=== PATIENT | male | born 1940 | race Caucasian/White ===

== ENCOUNTER 2018-01-28 13:47 | Inpatient (IN) | payer OTHER ==
[2018-01-28] MEDS ORDERED: SODIUM CHLORIDE 500 ML IV STA ×2 (14:19→16:02)
--- NOTE | 2018-01-28 14:27 | PDOC ---
History of Present Illness - General Chief Complaint: Blood Sugar Problem Stated Complaint: High sugar, monitor read HIGH Time Seen by Provider: 01/28/18 14:08 History Source: Patient - History of Present Illness Timing/Duration: other Associated Symptoms: denies: chest pain, cough, fever/chills, headaches, loss of appetite, nausea/vomiting, shortness of breath, weakness Past History - Past Medical History Allergies/Adverse Reactions: Allergies Allergy/AdvReac Type Severity Reaction Status Date / Time No Known Allergies Allergy Verified 01/28/18 13:56 Home Medications: Ambulatory Orders Insulin Glargine,Hum.rec.anlog [Lantus] 8 unit SQ DAILY 01/28/18 COPD: No Diabetes: Yes HTN: Yes - Suicide/Smoking/Psychosocial Hx Smoking History: Never smoked Information on smoking cessation initiated: No Hx Alcohol Use: No Drug/Substance Use Hx: No Substance Use Type: None Review of Systems - Review of Systems Constitutional: No: Chills, Fever, Malaise, Weakness Respiratory: No: Cough, Shortness of Breath Cardiac (ROS): No: Chest Pain, Lightheadedness, Palpitations, Syncope ABD/GI: No: Constipated, Diarrhea, Nausea, Vomiting, Abdominal cramping : No: Dysuria *Physical Exam - Vital Signs Last Vital Signs Temp Pulse Resp BP Pulse Ox 97.5 F L 63 18 162/76 97 01/28/18 13:50 01/28/18 13:50 01/28/18 13:50 01/28/18 13:50 01/28/18 13:50 - Physical Exam General Appearance: Yes: Appropriately Dressed. No: Apparent Distress HEENT: positive: Normal Voice Neck: positive: Supple Respiratory/Chest: positive: Lungs Clear, Normal Breath Sounds. negative: Respiratory Distress Cardiovascular: positive: Regular Rate, S1, S2 Gastrointestinal/Abdominal: positive: Soft. negative: Tender Musculoskeletal: negative: CVA Tenderness Extremity: positive: Normal Inspection Integumentary: positive: Dry, Warm Neurologic: positive: Alert, Normal Mood/Affect ED Treatment Course - LABORATORY CBC & Chemistry Diagram: 01/28/18 14:15 01/28/18 14:15 - RADIOLOGY Radiology Studies Ordered: Category Date Time Status CHEST X-RAY PORTABLE* [RAD] Stat Radiology 01/28/18 14:08 Ordered Medical Decision Making - Medical Decision Making 01/28/18 14:20 77-year-old male, h/o DM, poor vision and gait at baseline, resides alone, h/o med non-compliance, now brought in by friends for hyperglycemia. Friends report that patient was seen at [facility] 3 days ago for weakness in the setting of hyperglycemia. Was discharged and told to follow-up with his PMD, Dr. Raymon Aragon, who patient saw 2 days ago and who started patient on 8 units daily of lantus. Friends report that they have been visiting patient daily and ensuring that he takes his lantus but states today finger stick was over 500. Patient continues to have weakness, otherwise denies any acute sxs. See exam Hyperglycemia Started on insulin 2 days ago by PMD and taking meds per family friends +weakness Well marilee and stable w/ unremarkable exam -labs -IVF -insulin -anticipate admission for better control of DM, will also need to be evaluated by inhouse SW given lack of social support/inability to care for self 01/28/18 14:45 Patient's EKG today shows a LBBB. No old EKG on records here at [facility]. Pt has no CP or SOB at this time. I called [facility] and spoke to nurse, Jaja, who was able to review patient's chart and reported over the phone that patient's EKG 3 days ago in ER showed normal sinus rhythm with left bundle branch block and nonspecific ST-T wave changes. Nurse states currently unable to fax over EKG. States patient was seen there 3 days ago for hyperglycemia with blood glucose of >400 and was treated with 5 units of humalog and discharged. 01/28/18 16:03 Blood glucose over 500 without gap. IV fluid and insulin in progress. Will admit at this time 01/28/18 17:05 Case d/w hospitalist and patient admitted at this time *DC/Admit/Observation/Transfer Diagnosis at time of Disposition: Hyperglycemia - Discharge Dispostion Condition at time of disposition: Fair Admit: Yes - Referrals Referrals: Raymon Aragon MD [Primary Care Provider] - - Patient Instructions - Post Discharge Activity
--- NOTE | 2018-01-28 14:47 | EKG ---
Test Reason : Blood Pressure : / mmHG Vent. Rate : 071 BPM Atrial Rate : 071 BPM P-R Int : 196 ms QRS Dur : 160 ms QT Int : 464 ms P-R-T Axes : 088 -25 110 degrees QTc Int : 504 ms POOR DATA QUALITY, INTERPRETATION MAY BE ADVERSELY AFFECTED SINUS RHYTHM WITH PREMATURE ATRIAL COMPLEXES LEFT BUNDLE BRANCH BLOCK ABNORMAL ECG NO PREVIOUS ECGS AVAILABLE Confirmed by NIGEL GODWIN, EMELY ([id number]) on 01/28/2018 2:47:25 PM Referred By: Confirmed By:EMELY MANNING MD
[2018-01-28 14:48] LABS: BASO % 0.6 % (0-2.0); EOS % 0.6 % (0-4.5); HEMATOCRIT 40.6 % (35.4-49); HEMOGLOBIN 13.5 GM/dL (11.7-16.9); LYMPH % 13.8 % (8-40); MCH 29.4 pg (25.7-33.7); MCHC 33.3 g/dl (32.0-35.9); MEAN CELL VOLUME 88.2 fl (80-96); MONO % 9.4 % (3.8-10.2); NEUT % 75.6 % (42.8-82.8); PLATELET COUNT 255 K/MM3 (134-434); RDW 14.2 % (11.9-15.9); WHITE BLOOD COUNT 6.8 K/mm3 (4.0-10.0)
[2018-01-28 15:48] LABS: ALBUMIN 3.9 g/dl (3.4-5.0); ALK PHOS 102 U/L (45-117); ANION GAP 6 (8-16); BILIRUBIN,TOTAL 0.5 mg/dL (0.2-1.0); BLOOD UREA NITROGEN 21 mg/dL (7-18); CALCIUM 9.3 mg/dL (8.5-10.1); CHLORIDE 96 mmol/L (98-107); CO2 31 mmol/L (21-32); CREATININE 1.1 mg/dL (0.7-1.3); SGPT/ALT 24 U/L (12-78); SODIUM 133 mmol/L (136-145); TOT PROT 7.8 g/dl (6.4-8.2)
[2018-01-28 15:55] LABS: POTASSIUM 4.9 mmol/L (3.5-5.1); SGOT/AST 12 U/L (15-37)
[2018-01-28 15:57] LABS: GLUCOSE,RANDOM 552 mg/dL (74-106)
[2018-01-28] MEDS ORDERED: INSULIN REGULAR HUMAN 100 UNITS/ML *VIAL IVPUSH ONE (16:02)
[2018-01-28] MEDS ORDERED: INSULIN REGULAR HUMAN 100 UNITS/ML *VIAL ONE (16:08)
--- NOTE | 2018-01-28 17:05 | PDOC ---
*Physical Exam - Vital Signs Last Vital Signs Temp Pulse Resp BP Pulse Ox 97.5 F L 63 18 162/76 97 01/28/18 13:50 01/28/18 13:50 01/28/18 13:50 01/28/18 13:50 01/28/18 13:50 ED Treatment Course - LABORATORY CBC & Chemistry Diagram: 01/28/18 14:15 01/28/18 14:15 - ADDITIONAL ORDERS Additional order review: Laboratory Results 01/28/18 01/28/18 14:39 14:15 Sodium 133 L Potassium 4.9 Chloride 96 L Carbon Dioxide 31 Anion Gap 6 L BUN 21 H Creatinine 1.1 Creat Clearance w eGFR > 60 Random Glucose 552 H* Calcium 9.3 Total Bilirubin 0.5 AST 12 L ALT 24 Alkaline Phosphatase 102 Total Protein 7.8 Albumin 3.9 Acetone, Qual Negative 01/28/18 14:15 RBC 4.60 MCV 88.2 MCHC 33.3 RDW 14.2 MPV 10.0 Neutrophils % 75.6 Lymphocytes % 13.8 Monocytes % 9.4 Eosinophils % 0.6 Basophils % 0.6 - RADIOLOGY Radiology Studies Ordered: Category Date Time Status CHEST X-RAY PORTABLE* [RAD] Stat Radiology 01/28/18 14:08 Completed - Medications Given in the ED: ED Medications Discontinued Medications Generic Name Dose Route Start Last Admin Trade Name Monse PRN Reason Stop Dose Admin Sodium Chloride 500 mls @ 500 mls/hr 01/28/18 14:19 01/28/18 14:45 Normal Saline - IV 01/28/18 15:18 500 mls/hr ASDIR STA Administration Sodium Chloride 500 mls @ 500 mls/hr 01/28/18 16:02 01/28/18 16:13 Normal Saline - IV 01/28/18 17:01 500 mls/hr ASDIR STA Administration Insulin Human Regular 10 units 01/28/18 16:02 01/28/18 16:11 Novolin R Vial *For Ivpush Or Iv Drip Only* IVPUSH 01/28/18 16:03 10 unit ONCE ONE Administration *DC/Admit/Observation/Transfer Diagnosis at time of Disposition: Hyperglycemia - Discharge Dispostion Condition at time of disposition: Fair Admit: Yes - Referrals Referrals: Raymon Aragon MD [Primary Care Provider] - - Patient Instructions - Post Discharge Activity
[2018-01-28] MEDS: SODIUM CHLORIDE 1,000 ML IV SCH (18:02)
[2018-01-28] MEDS ORDERED: LISINOPRIL 5 MG TABLET (FP) PO ONE (18:09)
--- NOTE | 2018-01-28 18:11 | PN ---
Teaching Attending Note Name of Resident: Steve Ngo ATTENDING PHYSICIAN STATEMENT I saw and evaluated the patient. I reviewed the resident's note and discussed the case with the resident. I agree with the resident's findings and plan as documented. SUBJECTIVE:77yo M with PMH HTN, demenita and newly diagnosed DM which he was recently diagnosed 3 days ago. c/o weakness, fatigue and polydipsia. in the ER found ot have sugar 500+. he was at [facility] 3 days ago with similar symptoms and told he was diabetic. his PMD started him on levemir 8 units the next day. unclear if he checks his sugars throughout the day. denies CP, SOB, fever, chills, N/V/C/D OBJECTIVE: Last Vital Signs Temp Pulse Resp BP Pulse Ox 97.5 F L 65 18 158/70 99 01/28/18 13:50 01/28/18 18:00 01/28/18 18:00 01/28/18 18:00 01/28/18 18:00 General NAD CV S1 S2 RRR +5/6 holosystolic murmur Lungs CTA B/L no wheezing/rales/rhonchi Abdomen soft NT/ND Extremities decreased sensation B/L to mid keith ASSESSMENT AND PLAN: 77yo M with PMH HTN, demenita and newly diagnosed DM c/o weakness, fatigue and polydipsia and found to have sugar 500+ 1. Hyperglycemia- Medicine observation. AG and bicarb WNL. no acetone. received novolog 10 units. will start levemir 15units tonight. trend sugars ACHS with iss. adjust as needed to optimize control 2. New murmur- does not recall being told he had a murmur. will check echo 3. pseudohyponatremia 4. HTN- not on home medications. start lisinopril 5mg 5. DVT ppx- EAM 6. PT eval. spoke with friend present at bedside. all questions answered. verbalized understanding and agreement. possible d/c tomorrow pending sugars and echo findings.
--- NOTE | 2018-01-28 18:37 | HP ---
CHIEF COMPLAINT: fatigue, BG 500> on finger stick PCP: Dr. Raymon Aragon HISTORY OF PRESENT ILLNESS: 77 yo man w/ pmh of DM, mild MCI, ?HTN who presents w/ persistent fatigue since prior discharge at [facility] for similar symptoms 3 days ago, found to have BG of 552 in ED. Pt endorses fatigue and polydipsia since discharge at [facility], where he was seen for lethargy and fatigue for multiple days prior and found to have elevated BG >400. Pt received 5 units humalog during that visit and was discharged with outpt f/u with PMD, who started pt on levemir 8units at an office visit the next day. Pt newly starting finger stick BG monitoring over past two days, however requires the assistance of friends living in his apartment complex to ensure compliance and routine levemir dosing. Pt BG >500 this AM at home and was brought in by friends to ED. Pt denies prior DM diagnosis and has never taken insulin or oral hypoglycemics before. Pt denies KEENE , lightheadness, vision changes, chest pain, SOB, cough, ab pain, back pain, diarrhea, neuro deficits, dysuria, diarrhea, f/c/n/d. Pt lives at home with mild MCI and will likely need involvement for placement. No recent travel or sick contacts. ER course was notable for: (1)BG 552 (2)Received Novolog 10u (3) Recent Travel: None PAST MEDICAL HISTORY: ?HTN DM ?dementia Poor vision Gait disturbance PAST SURGICAL HISTORY: None Social History: Smoking: none Alcohol: None Drugs: None Family History: [place] Allergies No Known Allergies Allergy (Verified 01/28/18 13:56) HOME MEDICATIONS: Home Medications Medication Instructions Recorded Insulin Glargine,Hum.rec.anlog 8 unit SQ DAILY 01/28/18 [Lantus] REVIEW OF SYSTEMS CONSTITUTIONAL: generalized weakness Absent: fever, chills, diaphoresis, , malaise, loss of appetite, weight change HEENT: Absent: rhinorrhea, nasal congestion, throat pain, throat swelling, difficulty swallowing, mouth swelling, ear pain, eye pain, visual changes CARDIOVASCULAR: Absent: chest pain, syncope, palpitations, irregular heart rate, lightheadedness , peripheral edema RESPIRATORY: Absent: cough, shortness of breath, dyspnea with exertion, orthopnea, wheezing, stridor, hemoptysis GASTROINTESTINAL: Absent: abdominal pain, abdominal distension, nausea, vomiting, diarrhea, constipation, melena, hematochezia GENITOURINARY: Absent: dysuria, frequency, urgency, hesitancy, hematuria, flank pain, genital pain MUSCULOSKELETAL: Absent: myalgia, arthralgia, joint swelling, back pain, neck pain SKIN: Absent: rash, itching, pallor HEMATOLOGIC/IMMUNOLOGIC: Absent: easy bleeding, easy bruising, lymphadenopathy, frequent infections ENDOCRINE: Increased thirst Absent: unexplained weight gain, unexplained weight loss, heat intolerance, cold intolerance NEUROLOGIC: Absent: headache, focal weakness or paresthesias, dizziness, unsteady gait, seizure, mental status changes, bladder or bowel incontinence PSYCHIATRIC: Absent: anxiety, depression, suicidal or homicidal ideation, hallucinations. PHYSICAL EXAMINATION Vital Signs - 24 hr 01/28/18 01/28/18 13:50 18:00 Temperature 97.5 F L Pulse Rate 63 Pulse Rate [ 65 Apical] Respiratory 18 18 Rate Blood Pressure 162/76 Blood Pressure 158/70 [Left Arm] O2 Sat by Pulse 97 99 Oximetry (%) GENERAL: Elderly man, A&Ox2, NAD HEAD: Normal with no signs of trauma. EYES: Pupils equal, round and reactive to light, extraocular movements intact, sclera anicteric, conjunctiva clear. No lid lag. EARS, NOSE, THROAT: Ears normal, nares patent, oropharynx clear without exudates. Dry mucous membranes NECK: Normal range of motion, supple without lymphadenopathy, JVD, or masses. LUNGS: Breath sounds equal, clear to auscultation bilaterally. No wheezes, and no crackles. No accessory muscle use. HEART: 4/6 systolic ejection murmur best heart at LUSB, however appreciable diffusely. Regular rate and rhythm, normal S1 and S2 ABDOMEN: Soft, nontender, not distended, normoactive bowel sounds, no guarding, no rebound, no masses. No hepatomegaly or splenomegaly. MUSCULOSKELETAL: Normal range of motion at all joints. No bony deformities or tenderness. No CVA tenderness. UPPER EXTREMITIES: 2+ pulses, warm, well-perfused. No cyanosis. No clubbing. No peripheral edema. LOWER EXTREMITIES: 2+ pulses, warm, well-perfused. No calf tenderness. No peripheral edema. NEUROLOGICAL: Cranial nerves II-XII intact. Normal speech. Gait not observed. PSYCHIATRIC: Pleasant. Good eye contact. Appropriate mood and affect. SKIN: Warm, dry, normal turgor, no rashes or lesions noted, normal capillary refill. Laboratory Results - last 24 hr CBC, BMP 01/28/18 14:15 01/28/18 14:15 01/28/18 01/28/18 01/28/18 14:15 14:15 14:15 WBC 6.8 RBC 4.60 Hgb 13.5 Hct 40.6 MCV 88.2 MCH 29.4 MCHC 33.3 RDW 14.2 Plt Count 255 MPV 10.0 Neutrophils % 75.6 Lymphocytes % 13.8 Monocytes % 9.4 Eosinophils % 0.6 Basophils % 0.6 Sodium 133 L Potassium 4.9 Chloride 96 L Carbon Dioxide 31 Anion Gap 6 L BUN 21 H Creatinine 1.1 Creat Clearance w eGFR > 60 Random Glucose 552 H* Calcium 9.3 Total Bilirubin 0.5 AST 12 L ALT 24 Alkaline Phosphatase 102 Creatine Kinase Cancelled Troponin I Cancelled Total Protein 7.8 Albumin 3.9 Acetone, Qual 01/28/18 14:39 WBC RBC Hgb Hct MCV MCH MCHC RDW Plt Count MPV Neutrophils % Lymphocytes % Monocytes % Eosinophils % Basophils % Sodium Potassium Chloride Carbon Dioxide Anion Gap BUN Creatinine Creat Clearance w eGFR Random Glucose Calcium Total Bilirubin AST ALT Alkaline Phosphatase Creatine Kinase Troponin I Total Protein Albumin Acetone, Qual Negative No micro CXR 01/28 - There are no prior studies for comparison. There is an apical lordotic projection with prominent heart, sclerotic knob and normal addie. The lungs are well expanded. There is suggestion of either old rib trauma or pleural calcifications involving the upper chest. There may be some pleural reaction and atelectasis at the right base. There are no prior studies for comparison. Correlation and follow-up recommended. ASSESSMENT/PLAN: 77 yo man w/ pmh of DM, mild MCI, ?HTN who presents w/ persistent fatigue since prior discharge at [facility] for similar symptoms 3 days ago, found to have BG of 552 in ED. 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 Plan discussed with attending, Dr. Estee Ngo, PGY1 Visit type - Emergency Visit Emergency Visit: Yes ED Registration Date: 01/28/18 Care time: The patient presented to the Emergency Department on the above date and was hospitalized for further evaluation of their emergent condition. - New Patient This patient is new to me today: Yes Date on this admission: 01/28/18 - Critical Care Critical Care patient: No Hospitalist Screening - Colonoscopy Questionnaire Colonoscopy Questionnaire: Colonoscopy Questionnaire - Patient: 50 - 75 years old and never had a screening colonoscopy: Unknown History of colon or rectal polyps, or CA: Unknown History of IBD, Crohn's disease or UC: Unknown History of abdominal radiation therapy as a child: Unknown - Relative: 1 with colon or rectal CA, or polyps at age 60 or younger: Unknown Colon or rectal CA diagnosed at age 45 or younger: Unknown Multiple relatives with colon or rectal CA: Unknown - Outcome: Screening Result: Negative Screen
[2018-01-28 18:38] VITALS: BMI 22.8
[2018-01-28] MEDS ORDERED: INSULIN (LEVEMIR) 100 UNITS/ML UNITS SQ SCH (22:00)
[2018-01-28] MEDS: INSULIN SLIDING SCALE (NOVOLOG) 1 VIAL SQ SCH (22:00)
[2018-01-28] MEDS: HEPARIN NA (PORCINE) 5,000 UNITS/ML 1ML VIAL SQ SCH (22:54)
[2018-01-29] MEDS: HEPARIN NA (PORCINE) 5,000 UNITS/ML 1ML VIAL SQ SCH ×3 (05:43→22:20)
--- NOTE | 2018-01-29 06:26 | PN ---
Physical Exam: SUBJECTIVE: Patient seen and examined by me this AM - No overnight events. AM glucose 86 on BMP. No complaints, pt states fatigue improving, tolerating feeds. Denies f/c/n/v/d, cp pain, sob, cough, ab pain, back pain, LE edema; Counseled on possible discharge today if echo normal and blood sugars well controlled. Will likely require changes in home insulin regimen. OBJECTIVE: Vital Signs Intake & Output 01/26/18 01/27/18 01/28/18 01/29/18 23:59 23:59 23:59 23:59 Output Total 400 Balance -400 Weight 62.142 kg Period Temp Pulse Resp BP Sys/[place] Pulse Ox Last 24 Hr 97.5 F-98.9 F 58-72 18-20 133-162/48-82 95-99 GENERAL: Elderly man, A&Ox2, NAD HEAD: Normal with no signs of trauma. EYES: Pupils equal, round and reactive to light, extraocular movements intact, sclera anicteric, conjunctiva clear. No lid lag. EARS, NOSE, THROAT: Ears normal, nares patent, oropharynx clear without exudates. Dry mucous membranes NECK: Normal range of motion, supple without lymphadenopathy, JVD, or masses. LUNGS: Breath sounds equal, clear to auscultation bilaterally. No wheezes, and no crackles. No accessory muscle use. HEART: 5/6 systolic ejection murmur best heart at LUSB, however appreciable diffusely. Regular rate and rhythm, normal S1 and S2 ABDOMEN: Scaphoid abdomen. Soft, nontender, not distended, normoactive bowel sounds, no guarding, no rebound, no masses. No hepatomegaly or splenomegaly. MUSCULOSKELETAL: Normal range of motion at all joints. No bony deformities or tenderness. No CVA tenderness. UPPER EXTREMITIES: 2+ pulses, warm, well-perfused. No cyanosis. No clubbing. No peripheral edema. LOWER EXTREMITIES: 2+ pulses, warm, well-perfused. No calf tenderness. No peripheral edema. NEUROLOGICAL: Cranial nerves II-XII intact. Normal speech. Gait not observed. PSYCHIATRIC: Pleasant. Good eye contact. Appropriate mood and affect. SKIN: Warm, dry, normal turgor, no rashes or lesions noted, normal capillary refill. Laboratory Results - last 24 hr CBC, BMP 01/29/18 06:30 01/29/18 06:30 01/28/18 14:15 01/28/18 14:15 01/28/18 01/28/18 01/28/18 14:15 14:15 14:15 WBC 6.8 RBC 4.60 Hgb 13.5 Hct 40.6 MCV 88.2 MCH 29.4 MCHC 33.3 RDW 14.2 Plt Count 255 MPV 10.0 Neutrophils % 75.6 Lymphocytes % 13.8 Monocytes % 9.4 Eosinophils % 0.6 Basophils % 0.6 Sodium 133 L Potassium 4.9 Chloride 96 L Carbon Dioxide 31 Anion Gap 6 L BUN 21 H Creatinine 1.1 Creat Clearance w eGFR > 60 POC Glucometer Random Glucose 552 H* Calcium 9.3 Total Bilirubin 0.5 AST 12 L ALT 24 Alkaline Phosphatase 102 Creatine Kinase 65 Cancelled Troponin I < 0.02 Cancelled Total Protein 7.8 Albumin 3.9 Acetone, Qual 01/28/18 01/28/18 01/28/18 14:39 17:56 22:47 WBC RBC Hgb Hct MCV MCH MCHC RDW Plt Count MPV Neutrophils % Lymphocytes % Monocytes % Eosinophils % Basophils % Sodium Potassium Chloride Carbon Dioxide Anion Gap BUN Creatinine Creat Clearance w eGFR POC Glucometer 198.46595 298 Random Glucose Calcium Total Bilirubin AST ALT Alkaline Phosphatase Creatine Kinase Troponin I Total Protein Albumin Acetone, Qual Negative 01/29/18 05:37 WBC RBC Hgb Hct MCV MCH MCHC RDW Plt Count MPV Neutrophils % Lymphocytes % Monocytes % Eosinophils % Basophils % Sodium Potassium Chloride Carbon Dioxide Anion Gap BUN Creatinine Creat Clearance w eGFR POC Glucometer 99 Random Glucose Calcium Total Bilirubin AST ALT Alkaline Phosphatase Creatine Kinase Troponin I Total Protein Albumin Acetone, Qual Active Medications Generic Name Dose Route Start Last Admin Trade Name Freq PRN Reason Stop Dose Admin Heparin Sodium (Porcine) 5,000 unit 01/28/18 22:00 01/29/18 05:43 Heparin - SQ 5,000 unit TID MELVIN Administration Sodium Chloride 1,000 mls @ 100 mls/hr 01/28/18 17:45 01/28/18 18:02 Normal Saline - IV 100 mls/hr ASDIR MELVIN Administration Insulin Aspart 1 vial 01/28/18 22:00 01/28/18 22:00 Novolog Vial Sliding Scale - SQ 2 units ACHS MELVIN Administration Protocol Insulin Detemir 15 units 01/28/18 22:00 01/28/18 22:54 Levemir Vial SQ 15 unit HS MELVIN Administration Lisinopril 5 mg 01/29/18 10:00 Prinivil PO DAILY MELVIN No micro CXR 01/28 - There are no prior studies for comparison. There is an apical lordotic projection with prominent heart, sclerotic knob and normal addie. The lungs are well expanded. There is suggestion of either old rib trauma or pleural calcifications involving the upper chest. There may be some pleural reaction and atelectasis at the right base. There are no prior studies for comparison. Correlation and follow-up recommended. ECHO 01/29 - pending ASSESSMENT/PLAN: 77 yo man w/ pmh of DM, mild MCI, ?HTN who presents w/ persistent fatigue since prior discharge at [facility] for similar symptoms 3 days ago, found to have BG of 552 in ED. Pt BG improved to 99 this AM on BMP. After PT eval, pt with marked gait instability/walked 35 ft. Plan for discharge to SNF pending placement. #Hyperglycemia/DM - BGM 552 on admission; Repeat BG 99 this AM; urine acetone negative on admission - ISS - Levemir decreased to 12u - IVFs - BGMs q4h - Consider Hgb A1c - Will require outpt management of diabetic meds - diabetic counseling given on rounds #Systolic murmur - 5/6 systolic ejection murmur, diffusely appreciable across precordium - f/u echo results #LBBB on EKG - prior EKG at [facility] with same findings; no complaints of chest pain or SOB - repeat EKG on discharge #Pseudohyponatremia - 140 today, resolved #?HTN - unknown home meds -Trend BP for now -c/w lisinopril 5mg #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 Plan discussed with attending, Dr. Estee Ngo, PGY1 Visit type - Emergency Visit Emergency Visit: Yes ED Registration Date: 01/29/18 Care time: The patient presented to the Emergency Department on the above date and was hospitalized for further evaluation of their emergent condition. - New Patient This patient is new to me today: No - Critical Care Critical Care patient: No
[2018-01-29 07:57] LABS: ALK PHOS 70 U/L (45-117); ANION GAP 5 (8-16); BILIRUBIN,TOTAL 0.6 mg/dL (0.2-1.0); BLOOD UREA NITROGEN 14 mg/dL (7-18); CALCIUM 8.1 mg/dL (8.5-10.1); CHLORIDE 105 mmol/L (98-107); CO2 30 mmol/L (21-32); CREATININE 0.4 mg/dL (0.7-1.3); GLUCOSE,RANDOM 86 mg/dL (74-106); POTASSIUM 3.8 mmol/L (3.5-5.1); SGOT/AST 8 U/L (15-37); SGPT/ALT 18 U/L (12-78); SODIUM 140 mmol/L (136-145); TOT PROT 5.8 g/dl (6.4-8.2)
[2018-01-29] MEDS: INSULIN SLIDING SCALE (NOVOLOG) 1 VIAL SQ SCH ×4 (08:34→22:23)
[2018-01-29 08:36] LABS: BASO % 0.7 % (0-2.0); EOS % 1.2 % (0-4.5); HEMATOCRIT 35.3 % (35.4-49); HEMOGLOBIN 11.8 GM/dL (11.7-16.9); LYMPH % 33.4 % (8-40); MCH 29.6 pg (25.7-33.7); MCHC 33.4 g/dl (32.0-35.9); MEAN CELL VOLUME 88.5 fl (80-96); MEAN PLT VOLUME 10.1 fl (7.5-11.1); NEUT % 53.7 % (42.8-82.8); PLATELET COUNT 206 K/MM3 (134-434); RBC 3.99 M/mm3 (4.00-5.60); WHITE BLOOD COUNT 6.3 K/mm3 (4.0-10.0)
[2018-01-29] MEDS: LISINOPRIL 5 MG TABLET (FP) PO SCH (11:11)
--- NOTE | 2018-01-29 15:50 | PN ---
Teaching Attending Note Name of Resident: Steve Ngo ATTENDING PHYSICIAN STATEMENT I saw and evaluated the patient. I reviewed the resident's note and discussed the case with the resident. I agree with the resident's findings and plan as documented. SUBJECTIVE:c/o dizzyness. denies CP, SOB, fever, chills, N/V/C/D OBJECTIVE: Last Vital Signs Temp Pulse Resp BP Pulse Ox 98.9 F 58 L 20 133/48 95 01/28/18 19:47 01/28/18 19:47 01/29/18 02:00 01/28/18 19:47 01/29/18 02:00 General NAD CV S1 S2 RRR +5/6 holosystolic murmur Lungs CTA B/L no wheezing/rales/rhonchi ASSESSMENT AND PLAN: 77yo M with PMH HTN, demenita and newly diagnosed DM c/o weakness, fatigue and polydipsia and found to have sugar 500+ 1. Hyperglycemia- improved. received 15units last night and sugar 99 this AM asymptomatic. will reduce to 12 units and monitor closely. will liekly improve as his eating improves. stressed importance of monitoring sugars and insulin. dietary evl. 2. New murmur- does not recall being told he had a murmur. echo pending 3. dizzyness- check orthostatics. 4. pseudohyponatremia 5. HTN-improved. cont lisinopril 5mg 6. DVT ppx- EAM 7. only ambulated 35ft with PT will need KATHERYN on discharge
[2018-01-29] MEDS: SODIUM CHLORIDE 1,000 ML IV SCH (18:03)
[2018-01-29] MEDS ORDERED: INSULIN (LEVEMIR) 100 UNITS/ML UNITS SQ SCH (22:00)
--- NOTE | 2018-01-30 05:54 | PN ---
Physical Exam: SUBJECTIVE: Patient seen and examined - Pt intermittently confused at night, ; attempts to leave bed w/ unsteady gait; nursing assisted safely to bathroom overnight; Noted with persistent bradycardia to 50s overnight; BG well controlled; pulled IV overnight - No complaints overnight; denies f/c/n/v/d, CP, sob, cough, ab pain, back pain , LE edema. Eating well, energy improved OBJECTIVE: Vital Signs Intake & Output 01/27/18 01/28/18 01/29/18 01/30/18 23:59 23:59 23:59 23:59 Intake Total 1825 Output Total 400 200 Balance -400 1625 Weight 62.142 kg Period Temp Pulse Resp BP Sys/Mujica Pulse Ox Last 24 Hr 97.8 F-98.3 F 53-93 18-20 120-175/52-77 GENERAL: Elderly man, NAD, A&Ox2 HEAD: Normal with no signs of trauma. EYES: Pupils equal, round and reactive to light, extraocular movements intact, sclera anicteric, conjunctiva clear. No lid lag. EARS, NOSE, THROAT: Ears normal, nares patent, oropharynx clear without exudates. Dry mucous membranes NECK: Normal range of motion, supple without lymphadenopathy, JVD, or masses. LUNGS: Breath sounds equal, clear to auscultation bilaterally. No wheezes, and no crackles. No accessory muscle use. HEART: 5/6 systolic ejection murmur across precordium. Regular rate and rhythm, normal S1 and S2. Pectus carinatum noted. ABDOMEN: Scaphoid abdomen. Soft, nontender, not distended, normoactive bowel sounds, no guarding, no rebound, no masses. No hepatomegaly or splenomegaly. MUSCULOSKELETAL: Normal range of motion at all joints. No bony deformities or tenderness. No CVA tenderness. UPPER EXTREMITIES: 2+ pulses, warm, well-perfused. No cyanosis. No clubbing. No peripheral edema. LOWER EXTREMITIES: 2+ pulses, warm, well-perfused. No calf tenderness. No peripheral edema. NEUROLOGICAL: Cranial nerves II-XII intact. Normal speech. Gait not observed. PSYCHIATRIC: Pleasant. Good eye contact. Appropriate mood and affect. SKIN: Warm, dry, normal turgor, no rashes or lesions noted, normal capillary refill. Laboratory Results - last 24 hr CBC, BMP CBC, BMP 01/30/18 06:15 01/30/18 06:15 01/29/18 06:30 01/29/18 06:30 01/29/18 01/29/18 01/29/18 05:37 06:30 06:30 WBC 6.3 RBC 3.99 L Hgb 11.8 D Hct 35.3 L MCV 88.5 MCH 29.6 MCHC 33.4 RDW 14.0 Plt Count 206 MPV 10.1 Neutrophils % 53.7 D Lymphocytes % 33.4 D Monocytes % 11.0 H Eosinophils % 1.2 D Basophils % 0.7 Sodium 140 Potassium 3.8 D Chloride 105 Carbon Dioxide 30 Anion Gap 5 L BUN 14 D Creatinine 0.4 L D Creat Clearance w eGFR > 60 POC Glucometer 99 Random Glucose 86 D Calcium 8.1 L Total Bilirubin 0.6 AST 8 L D ALT 18 D Alkaline Phosphatase 70 D Total Protein 5.8 L D Albumin 3.0 L D 01/29/18 01/29/18 01/29/18 11:51 17:58 21:47 WBC RBC Hgb Hct MCV MCH MCHC RDW Plt Count MPV Neutrophils % Lymphocytes % Monocytes % Eosinophils % Basophils % Sodium Potassium Chloride Carbon Dioxide Anion Gap BUN Creatinine Creat Clearance w eGFR POC Glucometer 183 240 178 Random Glucose Calcium Total Bilirubin AST ALT Alkaline Phosphatase Total Protein Albumin Active Medications Generic Name Dose Route Start Last Admin Trade Name Freq PRN Reason Stop Dose Admin Heparin Sodium (Porcine) 5,000 unit 01/28/18 22:00 01/29/18 22:20 Heparin - SQ 5,000 unit TID MELVIN Administration Sodium Chloride 1,000 mls @ 100 mls/hr 01/28/18 17:45 01/29/18 18:03 Normal Saline - IV Not Given ASDIR MELVIN Insulin Aspart 1 vial 01/28/18 22:00 01/29/18 22:23 Novolog Vial Sliding Scale - SQ 2 units ACHS MELVIN Administration Protocol Insulin Detemir 12 units 01/29/18 22:00 01/29/18 22:21 Levemir Vial SQ 12 units HS MELVIN Administration Lisinopril 5 mg 01/29/18 10:00 01/29/18 11:11 Prinivil PO 5 mg DAILY MELVIN Administration No micro CXR 01/28 - There are no prior studies for comparison. There is an apical lordotic projection with prominent heart, sclerotic knob and normal addie. The lungs are well expanded. There is suggestion of either old rib trauma or pleural calcifications involving the upper chest. There may be some pleural reaction and atelectasis at the right base. There are no prior studies for comparison. Correlation and follow-up recommended. ECHO 01/29 - pending ASSESSMENT/PLAN: 77 yo man w/ pmh of DM, mild MCI, ?HTN who presents w/ persistent fatigue since prior discharge at [facility] for similar symptoms 3 days ago, found to have BG of 552 in ED. Pt BG improved to 99 this AM on BMP. After PT eval, pt with marked gait instability/walked 35 ft. Plan for discharge to SNF pending placement. #Hyperglycemia/DM - BGM 552 on admission; Repeat BG 99 this AM; urine acetone negative on admission - ISS - Levemir decreased to 12u - IVFs - BGMs q4h - Consider Hgb A1c - Will require outpt management of diabetic meds - diabetic counseling given on rounds #Systolic murmur - 5/6 systolic ejection murmur, diffusely appreciable across precordium - f/u echo results #LBBB on EKG - prior EKG at [facility] with same findings; no complaints of chest pain or SOB - repeat EKG on discharge #Pseudohyponatremia - 140 today, resolved #?HTN - unknown home meds -Trend BP for now -c/w lisinopril 5mg #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 Plan discussed with attending, Dr. Estee Ngo, PGY1
[2018-01-30] MEDS: HEPARIN NA (PORCINE) 5,000 UNITS/ML 1ML VIAL SQ SCH ×2 (05:57→13:37)
[2018-01-30] MEDS: INSULIN SLIDING SCALE (NOVOLOG) 1 VIAL SQ SCH ×3 (05:59→18:13)
[2018-01-30 08:06] LABS: BASO % 0.5 % (0-2.0); EOS % 0.7 % (0-4.5); HEMOGLOBIN 13.4 GM/dL (11.7-16.9); LYMPH % 23.9 % (8-40); MCH 29.6 pg (25.7-33.7); MCHC 33.3 g/dl (32.0-35.9); MEAN CELL VOLUME 88.9 fl (80-96); MEAN PLT VOLUME 10.1 fl (7.5-11.1); MONO % 11.2 % (3.8-10.2); NEUT % 63.7 % (42.8-82.8); PLATELET COUNT 241 K/MM3 (134-434); RBC 4.51 M/mm3 (4.00-5.60); RDW 14.4 % (11.9-15.9); WHITE BLOOD COUNT 7.2 K/mm3 (4.0-10.0)
[2018-01-30 08:24] LABS: CHLORIDE 102 mmol/L (98-107); POTASSIUM 3.9 mmol/L (3.5-5.1); SODIUM 142 mmol/L (136-145)
[2018-01-30 08:30] LABS: ALBUMIN 3.6 g/dl (3.4-5.0); ALK PHOS 88 U/L (45-117); ANION GAP 10 (8-16); BILIRUBIN,TOTAL 0.7 mg/dL (0.2-1.0); BLOOD UREA NITROGEN 12 mg/dL (7-18); CALCIUM 9.6 mg/dL (8.5-10.1); CO2 30 mmol/L (21-32); CREATININE 0.5 mg/dL (0.7-1.3); GLUCOSE,RANDOM 83 mg/dL (74-106); SGOT/AST 23 U/L (15-37); SGPT/ALT 25 U/L (12-78); TOT PROT 7.1 g/dl (6.4-8.2)
[2018-01-30] MEDS: LISINOPRIL 5 MG TABLET (FP) PO SCH (11:37)
--- NOTE | 2018-01-30 13:49 | CON.CARD ---
Consult Consult Specialty:: cardiology Reason for Consultation:: aortiv stenosis. LBBB - History of Present Illness Chief Complaint: pt denies chest pain, dyspnea, dizziness History of Present Illness: 77-year-old male, h/o DM, poor vision and gait at baseline, resides alone, h/o med non-compliance, now brought in by friends for hyperglycemia. Friends report that patient was seen at [facility] 3 days ago for weakness in the setting of hyperglycemia. Was discharged and told to follow-up with his PMD, Dr. Raymon Aragon, who patient saw 2 days ago and who started patient on 8 units daily of lantus. Friends report that they have been visiting patient daily and ensuring that he takes his lantus but states today finger stick was over 500. Patient continues to have weakness, otherwise denies any acute sxs. 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 Cardio/Vascular: Yes: Aortic Stenosis, HTN Psych: Yes: Other Endocrine: Yes: Diabetes Mellitus - Alcohol/Substance Use Hx Alcohol Use: No - Smoking History Smoking history: Never smoked Home Medications - Allergies Allergies/Adverse Reactions: Allergies Allergy/AdvReac Type Severity Reaction Status Date / Time No Known Allergies Allergy Verified 01/28/18 13:56 - Home Medications Home Medications: Ambulatory Orders Insulin Glargine,Hum.rec.anlog [Lantus] 8 unit SQ DAILY 01/28/18 Family Disease History - Family Disease History Family History: Denies (however, pt is demented) - Risk Factors Known Risk Factors: Yes: Age, Diabetes Mellitus, Gender, Hypertension, Other ( Aortic stenosis; LBBB) Vital Signs: Vital Signs Temperature 97.7 F 01/30/18 07:38 Pulse Rate 52 L 01/30/18 07:38 Respiratory Rate 20 01/29/18 20:48 Blood Pressure 130/69 01/30/18 07:38 O2 Sat by Pulse Oximetry (%) 95 01/29/18 02:00 Constitutional: Yes: Calm Eyes: Yes: WNL HENT: Yes: WNL Neck: Yes: WNL Respiratory: Yes: WNL Gastrointestinal: Yes: Soft Renal/: No: Anuria - Other Data Labs, Other Data: CBC, BMP 01/30/18 06:15 01/30/18 06:15 Problem List - Problems (1) Hyperglycemia Code(s): R73.9 - HYPERGLYCEMIA, UNSPECIFIED (2) Aortic stenosis Assessment/Plan: modertely severe. Normal LVEF. Pt denies chest paink dyspnea, dizziiness, or syncope, and says he was "running in [employer] for about 20 minutes" a few times a week until 3 months ago (? veracity of hixtory, given pt's dementia). Code(s): I35.0 - NONRHEUMATIC AORTIC (VALVE) STENOSIS (3) LBBB (left bundle branch block) Assessment/Plan: Moderately severe aortic stenosis. LBBB may portend increased risk for coronary artery disease. May consider further workup as outpatient, including coronary artery evaluation , but only if first taking into consideration pt's mental status (dementia appears to be quite advanced). Code(s): I44.7 - LEFT BUNDLE-BRANCH BLOCK, UNSPECIFIED (4) Dementia Code(s): F03.90 - UNSPECIFIED DEMENTIA WITHOUT BEHAVIORAL DISTURBANCE (5) HTN (hypertension) Code(s): I10 - ESSENTIAL (PRIMARY) HYPERTENSION
--- NOTE | 2018-01-30 14:18 | PN ---
Teaching Attending Note Name of Resident: Steve Ngo ATTENDING PHYSICIAN STATEMENT I saw and evaluated the patient. I reviewed the resident's note and discussed the case with the resident. I agree with the resident's findings and plan as documented with exceptions below. SUBJECTIVE: Patient seen and examined, no dizziness today, yesterday with positional dizziness. OBJECTIVE: Vital Signs Period Temp Pulse Resp BP Sys/Mujica Pulse Ox Last 24 Hr 97.7 F-98.3 F 52-93 18-20 120-175/52-77 Intake & Output 01/27/18 01/28/18 01/29/18 01/30/18 23:59 23:59 23:59 23:59 Intake Total 1825 Output Total 400 200 Balance -400 1625 Weight 137 lb general: sitting in bed in no acute distress Home Medication List Medication Instructions Recorded Confirmed Type Insulin Glargine,Hum.rec.anlog 8 unit SQ DAILY 01/28/18 01/28/18 History [Lantus] Active Medications Generic Name Dose Route Start Last Admin Trade Name Kishoreq PRN Reason Stop Dose Admin Heparin Sodium (Porcine) 5,000 unit 01/28/18 22:00 01/30/18 13:37 Heparin - SQ 5,000 unit TID MELVIN Administration Insulin Aspart 1 vial 01/28/18 22:00 01/30/18 13:14 Novolog Vial Sliding Scale - SQ 2 units ACHS MELVIN Administration Protocol Insulin Detemir 12 units 01/31/18 07:00 Levemir Vial SQ AM MELVIN Insulin Detemir 12 units 01/30/18 15:30 Levemir Vial SQ 01/30/18 15:31 ONCE ONE Lisinopril 5 mg 01/29/18 10:00 01/30/18 11:37 Prinivil PO 5 mg DAILY MELVIN Administration 2D echo results reviewed ASSESSMENT AND PLAN: 77yo M with PMH HTN, demenita and newly diagnosed DM c/o weakness, fatigue and polydipsia and found to have sugar above 500. -Hyperglycemia, improved -Moderate to sever aortic stenosis -Dizziness, positive orthostatics, resolved, unclear if contributory -Psuedohyponatremia -HTN Plan: Sugars improved. levemir 12 units AM, will need continued titration 2D echo reviewed. Cardiology consult Dr. Silva, anticipate outpatient follow up. off IVF, caution with hydration given above. Currently asymptomatic. Avoid sudden postural changes. Continue lisinopril Dispo pending KATHERYN arrangements and cardiology input
[2018-01-30 14:40] LABS: CHOLESTEROL 232 mg/dL (50-200); TRIGLYCERIDES 192 mg/dL (35-160)
[2018-01-30 15:20] VITALS: BP 149/73; PULSE 55; TEMP 98.9
[2018-01-30] MEDS ORDERED: INSULIN (LEVEMIR) 100 UNITS/ML UNITS SQ ONE (15:30)
[2018-01-30 17:03] LABS: HDL CHOLESTEROL 63 mg/dL (40-60)
--- NOTE | 2018-01-30 23:02 | DS ---
Physical Exam: SUBJECTIVE: Patient seen and examined - Pt intermittently confused at night, ; attempts to leave bed w/ unsteady gait; nursing assisted safely to bathroom overnight; Noted with persistent bradycardia to 50s overnight; BG well controlled; pulled IV overnight - No complaints overnight; denies f/c/n/v/d, CP, sob, cough, ab pain, back pain , LE edema. Eating well, energy improved OBJECTIVE: Vital Signs Intake & Output 01/27/18 01/28/18 01/29/18 01/30/18 23:59 23:59 23:59 23:59 Intake Total 1825 Output Total 400 200 Balance -400 1625 Weight 62.142 kg Period Temp Pulse Resp BP Sys/Mujica Pulse Ox Last 24 Hr 97.7 F-98.9 F 52-56 18-20 130-158/56-73 PHYSICAL EXAM GENERAL: Elderly man, NAD, A&Ox2 HEAD: Normal with no signs of trauma. EYES: Pupils equal, round and reactive to light, extraocular movements intact, sclera anicteric, conjunctiva clear. No lid lag. EARS, NOSE, THROAT: Ears normal, nares patent, oropharynx clear without exudates. Dry mucous membranes NECK: Normal range of motion, supple without lymphadenopathy, JVD, or masses. LUNGS: Breath sounds equal, clear to auscultation bilaterally. No wheezes, and no crackles. No accessory muscle use. HEART: 5/6 systolic ejection murmur across precordium. Regular rate and rhythm, normal S1 and S2. Pectus carinatum noted. ABDOMEN: Scaphoid abdomen. Soft, nontender, not distended, normoactive bowel sounds, no guarding, no rebound, no masses. No hepatomegaly or splenomegaly. MUSCULOSKELETAL: Normal range of motion at all joints. No bony deformities or tenderness. No CVA tenderness. UPPER EXTREMITIES: 2+ pulses, warm, well-perfused. No cyanosis. No clubbing. No peripheral edema. LOWER EXTREMITIES: 2+ pulses, warm, well-perfused. No calf tenderness. No peripheral edema. NEUROLOGICAL: Cranial nerves II-XII intact. Normal speech. Gait not observed. PSYCHIATRIC: Pleasant. Good eye contact. Appropriate mood and affect. SKIN: Warm, dry, normal turgor, no rashes or lesions noted, normal capillary refill. LABS Laboratory Results - last 24 hr CBC, BMP 01/30/18 06:15 01/30/18 06:15 01/30/18 01/30/18 01/30/18 05:44 06:15 06:15 WBC 7.2 RBC 4.51 Hgb 13.4 D Hct 40.0 MCV 88.9 MCH 29.6 MCHC 33.3 RDW 14.4 Plt Count 241 MPV 10.1 Neutrophils % 63.7 Lymphocytes % 23.9 D Monocytes % 11.2 H Eosinophils % 0.7 Basophils % 0.5 Sodium 142 Potassium 3.9 Chloride 102 Carbon Dioxide 30 Anion Gap 10 BUN 12 Creatinine 0.5 L D Creat Clearance w eGFR > 60 POC Glucometer 72 Random Glucose 83 Calcium 9.6 Total Bilirubin 0.7 AST 23 D ALT 25 D Alkaline Phosphatase 88 D Total Protein 7.1 D Albumin 3.6 Triglycerides 192 H Cholesterol 232 H Total LDL Cholesterol 119 H HDL Cholesterol 63 H TSH 1.54 01/30/18 01/30/18 12:27 13:56 WBC RBC Hgb Hct MCV MCH MCHC RDW Plt Count MPV Neutrophils % Lymphocytes % Monocytes % Eosinophils % Basophils % Sodium Potassium Chloride Carbon Dioxide Anion Gap BUN Creatinine Creat Clearance w eGFR POC Glucometer 215 Random Glucose Calcium Total Bilirubin AST ALT Alkaline Phosphatase Total Protein Albumin Triglycerides Cancelled Cholesterol Cancelled Total LDL Cholesterol Cancelled HDL Cholesterol Cancelled TSH Cancelled No micro CXR 01/28 - There are no prior studies for comparison. There is an apical lordotic projection with prominent heart, sclerotic knob and normal addie. The lungs are well expanded. There is suggestion of either old rib trauma or pleural calcifications involving the upper chest. There may be some pleural reaction and atelectasis at the right base. There are no prior studies for comparison. Correlation and follow-up recommended. ECHO 01/29 - EF 60-65%, mild TR, mild AR, severe , normal RV/LV size and function HOSPITAL COURSE: prehospital course: 77 yo man w/ pmh of DM, mild MCI, ?HTN who presents w/ persistent fatigue since prior discharge at [facility] for similar symptoms 3 days ago, found to have BG of 552 in ED. Pt endorses fatigue and polydipsia since discharge at [facility], where he was seen for lethargy and fatigue for multiple days prior and found to have elevated BG >400. Pt received 5 units humalog during that visit and was discharged with outpt f/u with PMD, who started pt on levemir 8units at an office visit the next day. Pt newly starting finger stick BG monitoring over past two days, however requires the assistance of friends living in his apartment complex to ensure compliance and routine levemir dosing. Pt BG >500 this AM at home and was brought in by friends to ED. Pt denies prior DM diagnosis and has never taken insulin or oral hypoglycemics before. Pt denies KEENE , lightheadness, vision changes, chest pain, SOB, cough, ab pain, back pain, diarrhea, neuro deficits, dysuria, diarrhea, f/c/n/d. Pt lives at home with mild MCI and will likely need SW involvement for placement. No recent travel or sick contacts. ER course was notable for: (1)BG 552 (2)Received Novolog 10u (3) hospital course: 77 yo man w/ pmh of DM, mild MCI, ?HTN who presents w/ persistent fatigue since prior discharge at [facility] for similar symptoms 3 days ago, found to have BG of 552 in ED. Pt BG improved to 99 this AM on BMP. After PT eval, pt with marked gait instability/walked 35 ft. Plan for discharge to SNF pending placement. 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 #LBBB on EKG - prior EKG at [facility] with same findings; no complaints of chest pain or SOB #Pseudohyponatremia - 140 today, resolved; initially 133 on admission #?HTN - Started on Lisinopril 5mg during admission; continued on discharge #Mild MCI - likely secondary to dementia; occasionally sundowned overnight - will require outpt f/u with PMD; #Gait instability/dizziness - - Walked 35 ft with PT; high fall risk - Fall precautions; will d/c to SNF for short term rehab - will require walker on discharge Date of Admission:01/29/18 Date of Discharge: 01/30/18 Pt is stable and medically cleared for discharge to SNF with outpt f/u with PCP in one week. Minutes to complete discharge: 35 Discharge Summary Reason For Visit: HYPERGLYCEMIA Condition: Stable - Instructions Diet, Activity, Other Instructions: During your stay at [facility], you were treated for a severely elevated blood sugars. You were given insulin and fluids and your condition resolved. You are being discharge to a fci facility for short-term rehab. Medications: The following medications were started during your stay at [facility]. Please take them as directed below: Levemir 12units, one injection every morning before breakfast. Lisinopril 5mg, take one pill by mouth every morning Please check your blood sugars regularly at home before and after meals. Please keep a record of your sugar ranges at home so you discuss your diabetes management with your primary doctor. Your insulin will need to be modified according to the readings. Follow-ups: Please follow-up with your primary care physician in one week for further management of your medications. Please call their office to schedule an appointment. Please follow-up with our supervisor cured meats, Dr. Silva, in one week for further work-up and management of your cardiac care. His contact number has been provided in this packet. Please call his office to make an appointment. Diet/exercise: Please adhere to the diabetic diet in your discharge plan. Based on our physical therapy evaluation, we have determined that you will need a walker at home when ambulating due to unsteadiness in your gait. Please use your home walker when ambulating. Please return to the hospital if you experience any of the following symptoms: - Worsening, persistent fatigue - Persistent fruity odor in your breath - Significantly increased urination or thirst - Any shortness of breath or fainting episodes when walking - Any new or concerning symptoms Referrals: Ish Silva MD [Staff Physician] - 1 Week Raymon Aragon MD [Primary Care Provider] - 1 Week Disposition: [facility] - Home Medications Comprehensive Discharge Medication List: Ambulatory Orders Insulin (Levemir) [Levemir Vial] 12 units SQ AM ml 01/30/18 Insulin Sliding Scale [Novolog Vial Sliding Scale -] 1 vial SQ ACHS units 01/30 Lisinopril [Prinivil] 5 mg PO DAILY #30 tablet 01/30/18 This patient is new to me today: Yes Date on this admission: 01/30/18 Emergency Visit: No Critical Care patient: No - Discharge Referral Referred to [facility] No
[2018-01-31] MEDS ORDERED: INSULIN (LEVEMIR) 100 UNITS/ML UNITS SQ SCH (07:00)
== END 2018-01-30 19:32 | DRG 638 ==
LOC: JER 13:47 → INTOOBSV 17:05 → UNDOADMOB 17:05 → JERBED 17:05 → J8W 18:55 → OBSVTOIN 01-29 13:46
PROVIDERS: ADMIT Internal Medicine; ATTEND Hospitalist
DX: E11.65 Type 2 diabetes mellitus with hyperglycemia (principal); E87.1 Hypo-osmolality and hyponatremia; J98.11 Atelectasis; R01.1 Cardiac murmur, unspecified; I44.7 Left bundle-branch block, unspecified; R26.89 Other abnormalities of gait and mobility; I10 Essential (primary) hypertension; F03.90 Unspecified dementia, unspecified severity, without behavioral disturbance, psychotic disturbance, mood disturbance, and anxiety; R42 Dizziness and giddiness; I35.0 Nonrheumatic aortic (valve) stenosis
CPT/HCPCS: 36415; 71045-TC-FY; 80053; 80061; 82009; 82550; 82962; 83721; 84443; 84484; 85025; 93005; 93010; 93306-TC; 97116-GP; 97161-GP; 99284-25; G0378; J1644; J7030

== ENCOUNTER 2019-11-13 20:46 | Inpatient (IN) | payer OTHER ==
[2019-11-13 21:40] VITALS: BMI 25.7
--- NOTE | 2019-11-13 21:43 | PDOC ---
History of Present Illness - General Chief Complaint: Altered Mental Status Stated Complaint: ALTERED MENTAL STATUS Time Seen by Provider: 11/13/19 20:57 History Source: Patient, EMS, Prison Records Exam Limitations: Clinical Condition, Dementia - History of Present Illness Initial Comments: 78M PMH IDDM, HTN, Dementia [facility] for unresponsiveness / AMS. At approx 8pm, supriya RN found patient to be staring straight ahead and unresponsive. Episode lasted about 15 minutes; pt became more responsive but not back to baseline. Pt is a poor historian and provides limited insight into current symptomatology but denies cp/sob, abd pain, f/c. Past History - Past Medical History Allergies/Adverse Reactions: Allergies Allergy/AdvReac Type Severity Reaction Status Date / Time No Known Allergies Allergy Verified 01/28/18 13:56 Home Medications: Ambulatory Orders Insulin (Levemir) [Levemir Vial] 12 units SQ AM ml 01/30/18 Donepezil HCl [Aricept -] 10 mg PO HS 11/14/19 Lisinopril 5 mg PO DAILY 11/14/19 Memantine HCl [Namenda -] 5 mg PO BID 11/14/19 COPD: No Diabetes: Yes HTN: Yes - Psycho Social/Smoking Cessation Hx Smoking History: Never smoked Hx Alcohol Use: No Drug/Substance Use Hx: No Substance Use Type: None Review of Systems - Review of Systems Comments:: LIMITED 2/2 AMS CONSTITUTIONAL: Denies F / C RESP: Denies SOB CARD: Denies chest pain GI: Denies abdominal pain : Denies dysuria MSK: Denies pain *Physical Exam - Physical Exam GEN: NAD, AAOx2 (himself and place). HEENT: NC/AT, limited ability to test but CN II-XII grossly intact except poor tracking; PERRL. No facial asymmetry. Dry membranes, cracked lips. Normal voice. Supple neck w/ FROM; no midline TTP. CV: Telemetry showing pt HR changing from 40s to 100s. S1/S2, RRR, no m/r/g LUNG: CTAB, no wheezes, crackles, rales, rhonchi. GI: Soft, ndnt, +BS, no guarding, no rebound. EXTREMITIES: No obvious deformities of all extremities. SKIN: Warm, dry, no rashes or ulcers (including sacral decubs) seen. PSYCH: flat affect NEURO: Moving all extremities, 5/5 strength UE and LE b/l. BACK: No step offs or TTP. ED Treatment Course - LABORATORY CBC & Chemistry Diagram: 11/17/19 06:20 11/18/19 12:49 - RADIOLOGY Radiology Studies Ordered: Category Date Time Status HEAD CT WITHOUT CONTRAST [CT] Stat CT Scan 11/13/19 21:10 Ordered CHEST X-RAY PORTABLE* [RAD] Stat Radiology 11/13/19 21:09 Ordered Medical Decision Making - Medical Decision Making 11/13/19 21:16 78M PMH IDDM, HTN, Dementia BIBEMS [facility] for unresponsiveness / AMS. Monitor concerning for a tachybrady / sick sinus syndrome. SBPs 90s. Eval for infection, lytes abnormality, ACS, anemia - CBC, CMP, VBG, CARDIAC, COAGS - BCX - UA UC - EKG; cardiac monitoring - CXR - CT HEAD - Fluids 11/13/19 23:01 Trop 2.6 Lactate 4 d[facility]: hard to assess for ischemia 2/2 existing LBBB; presentation consistent with tachybrady recommends avoidance of HR slowing agents (BB, nonDHP CCBs), if no chest pain will have colleague see pt in AM. f/u CT after CT will load w/ ASA, plavix, and statin 11/13/19 23:23 endorsed to Hospitalist REAL ESTATE LEASING MANAGER ADMITTED TELE Discharge - Discharge Information Problems reviewed: Yes Clinical Impression/Diagnosis: VIJAY (acute kidney injury), Elevated troponin Sepsis Qualifiers: Sepsis type: sepsis due to unspecified organism Sepsis acute organ dysfunction status: unspecified Qualified Code(s): A41.9 - Sepsis, unspecified organism Condition: Guarded - Admission Yes - Follow up/Referral - Patient Discharge Instructions - Post Discharge Activity
[2019-11-13 21:58] LABS: BASO % 0.3 % (0-2.0); HEMOGLOBIN 14.6 GM/dL (11.7-16.9); LYMPH % 2.2 % (8-40); MCH 29.4 pg (25.7-33.7); MCHC 33.1 g/dl (32.0-35.9); MEAN CELL VOLUME 88.9 fl (80-96); MEAN PLT VOLUME 11.2 fl (7.5-11.1); MONO % 6.4 % (3.8-10.2); NEUT % 91.1 % (42.8-82.8); PLATELET COUNT 163 K/MM3 (134-434); RBC 4.95 M/mm3 (4.00-5.60); RDW 14.5 % (11.9-15.9); WHITE BLOOD COUNT 19.6 K/mm3 (4.0-10.0)
[2019-11-13 22:01] LABS: VENOUS PC02 44.4 mmHg (38-52); VENOUS PH 7.39 (7.31-7.41); VENOUS PO2 < 49 mmHg (28-48)
[2019-11-13] MEDS ORDERED: SODIUM CHLORIDE 0.9% 500 ML INFUS.BAG IV ONE (22:04)
--- NOTE | 2019-11-13 22:04 | PDOC ---
Documentation entered by Alfreda Kim SCRIBE, acting as scribe for Marianne Puckett DO. Marianne Puckett, : This documentation has been prepared by the Judy emmanuel Xhesika, SCRIBE, under my direction and personally reviewed by me in its entirety. I confirm that the documentation accurately reflects all work, treatment, procedures, and medical decision making performed by me. Attending Attestation - Resident Resident Name: RoshanTawanda - ED Attending Attestation I have performed the following: I have examined & evaluated the patient, The case was reviewed & discussed with the resident, I agree w/resident's findings & plan, Exceptions are as noted - HPI HPI: 11/13/19 21:16 The patient is a 78 year old male with a significant PMH of HTN, dementia who presents to the emergency department [facility] from [facility] for AMS. Per NH notes, at around 8-8:15pm the nurse found the patient to be unresponsive, eyes opened, staring straight ahead. NH notes states the episode lasted 15 minutes before the patient became more responsive. Per NH, they deny any shaking activity. Pt is a poor historian due to dementia. The patient denies chest pain, shortness of breath, headache and dizziness. Denies fever, chills, cough, nausea, vomiting, diarrhea and constipation. Allergies: NKDA - Physicial Exam PE: 11/13/19 21:49 GENERAL: aao x2, follows commands HEAD: No signs of trauma EYES: PERRLA, EOMI, sclera anicteric, conjunctiva clear ENT: Auricles normal inspection, hearing grossly normal, nares patent, oropharynx clear without exudates. +tachy mucous membranes. + cracked lips, tongue. NECK: Normal ROM, supple, no lymphadenopathy, JVD, or masses LUNGS: Breath sounds equal, clear to auscultation bilaterally. No wheezes, and no crackles HEART: +tachy-rose, no murmurs, rubs or gallops ABDOMEN: Soft, nontender. No guarding, no rebound. No masses EXTREMITIES: Normal range of motion, no edema. No clubbing or cyanosis. No cords, erythema, or tenderness NEUROLOGICAL: Cranial nerves II through XII grossly intact. 5/5 strength and sensation in upper and lower extremities. SKIN: Warm, Dry, normal turgor, no rashes or lesions noted. - Medical Decision Making 11/13/19 22:00 a/p: 78yo male from [facility] with altered ms at the facility -pt arrives aaox2 -pt denies all somatic complaints -pt with dry mm, borderline bp -during exam HR from 40-108 -when HR low pt is less responsive -when HR up he is more responsive -an episode of apnea -will send labs, cxr, ekg, trop -electrolytes -will need admission, tele monitoring 11/13/19 22:08 RML infiltrate on xray wbc 19 11/13/19 22:46 pt with VIJAY also ivf hydration running 11/13/19 22:49 elevated lactate to 4 ivf, abx ordered and running pt with trop of >2 will need admission for NSTEMI pt also tachy/rose on monitor call placed to cards 11/13/19 23:28 resident discussed the case with sha who accepts pt to service 11/14/19 00:[address] neg will treat NSTEMI - asa, plavix, lipitor, heparin RECEIVER Vanessa updated on results Discharge - Discharge Information Problems reviewed: Yes Clinical Impression/Diagnosis: Sepsis, Pneumonia, VIJAY (acute kidney injury), NSTEMI (non-ST elevated myocardial infarction) Condition: Fair - Admission Yes - Follow up/Referral - Patient Discharge Instructions - Post Discharge Activity Heart Score/ECG Review - ECG Intrepretation Comment:: 11/13/19 22:07 sinus at 91, L axis, LBBB, no acute s/t twave findings
[2019-11-13] MEDS ORDERED: VANCOMYCIN 1 GM in D5W (PRE-DOCKED) 1,000 MG/250 ML IVPB ONE (22:08)
[2019-11-13] MEDS ORDERED: PIPERACILLIN/TAZOB 4.5 GM 4.5 GM in DEXTROSE 5%-WATER 100 ML IVPB ONE (22:08)
[2019-11-13] MEDS ORDERED: VANCOMYCIN 1 GRAM (PRE-DOCKED) 1,000 MG/250 ML BAG IVPB ONE ×2 (22:24→22:25)
[2019-11-13] MEDS ORDERED: PIPERACILLIN/TAZOB 4.5 GM 4.5 GM/100 ML BAG IVPB ONE (22:24)
[2019-11-13 22:31] LABS: INR 1.31 (0.83-1.09); PLATELET ESTIMATE ADEQUATE; PROTHROMBIN TIME (PATIENT) 15.5 SEC (9.7-13.0)
[2019-11-13 22:33] LABS: ACTIVATED PTT 28.6 SECONDS (25.2-36.5)
[2019-11-13 22:45] LABS: BILIRUBIN,TOTAL 1.4 mg/dL (0.2-1); BLOOD UREA NITROGEN 32.9 mg/dL (7-18); CALCIUM 9.4 mg/dL (8.5-10.1); CREATININE 1.5 mg/dL (0.55-1.3); POTASSIUM 4.2 mmol/L (3.5-5.1); TOT PROT 8.2 g/dl (6.4-8.2)
[2019-11-13] MEDS ORDERED: SODIUM CHLORIDE 0.9% 1000 ML INFUS.BAG IV ONE (22:46)
--- NOTE | 2019-11-13 23:39 | HP ---
Admitting History and Physical - Primary Care Physician PCP: Tavo Mota - Admission Chief Complaint: Unresponsive, Lethargy History of Present Illness: This is a 78 y/o man from [facility] with a PMHx of HTN, Dementia. Who presents to the emergency department [facility] for AMS. Per [facility] notes, at around 8-8:15pm the nurse found the patient to be unresponsive, eyes opened, staring straight ahead. [facility] notes states the episode lasted 15 minutes before the patient became more responsive. Per [facility], they deny any shaking activity. Pt is a poor historian due to dementia. The patient denies chest pain, shortness of breath, headache and dizziness. Denies fever, chills, cough, nausea, vomiting, diarrhea and constipation. 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 Cardiovascular: Yes: Aortic Stenosis, HTN Psych: Yes: Other Endocrine: Yes: Diabetes Mellitus - Smoking History Smoking history: Never smoked - Alcohol/Substance Use Hx Alcohol Use: No History of Substance Use: reports: None - Social History Usual Living Arrangement: Yes: Halfway ADL: Support Services History of Recent Travel: No Home Medications - Allergies Allergies/Adverse Reactions: Allergies Allergy/AdvReac Type Severity Reaction Status Date / Time No Known Allergies Allergy Verified 01/28/18 13:56 - Home Medications Home Medications: Ambulatory Orders Insulin (Levemir) [Levemir Vial] 12 units SQ AM ml 01/30/18 Donepezil HCl [Aricept -] 10 mg PO HS 11/14/19 Lisinopril 5 mg PO DAILY 11/14/19 Memantine HCl [Namenda -] 5 mg PO BID 11/14/19 Family Medical History Family History: Unable to Obtain Review of Systems Unable to obtain ROS, reason: Dementia Physical Examination Vital Signs: Vital Signs Temperature 98.8 F 11/13/19 20:46 Pulse Rate 79 11/13/19 20:46 Respiratory Rate 18 11/13/19 20:46 Blood Pressure 96/55 L 11/13/19 20:46 O2 Sat by Pulse Oximetry (%) 100 01/22/20 20:46 Constitutional: Yes: No Distress, Calm Eyes: Yes: Conjunctiva Clear, PERRL HENT: Yes: WNL, Atraumatic, Normocephalic Neck: Yes: WNL, Supple, Trachea Midline Cardiovascular: Yes: Regular Rate and Rhythm, Murmur, S1, S2 Respiratory: Yes: Diminished, On Nasal O2 Gastrointestinal: Yes: WNL, Normal Bowel Sounds, Soft ...Rectal Exam: Yes: Sphincter Tone Normal Renal/: Yes: Incontinence Breast(s): Yes: WNL Musculoskeletal: Yes: WNL Extremities: Yes: WNL Edema: No Peripheral Pulses WNL: Yes Integumentary: Yes: Bruising (eccyhmotic lesions to b/l LE) Neurological: Yes: Confusion, Cran Nerves II-XII Intact ...Motor Strength: WNL Psychiatric: Yes: Alert Labs: CBC, BMP 11/13/19 21:30 11/13/19 21:30 Laboratory Results - last 24 hr 11/13/19 11/13/19 11/13/19 21:30 21:30 21:30 WBC 19.6 H RBC 4.95 Hgb 14.6 Hct 44.0 MCV 88.9 MCH 29.4 MCHC 33.1 RDW 14.5 Plt Count 163 D MPV 11.2 H D Absolute Neuts (auto) 17.9 H Total Counted 100 Neutrophils % 91.1 H D Neutrophils % (Manual) 85.0 H Band Neutrophils % 8.0 Lymphocytes % 2.2 L D Lymphocytes % (Manual) 3.0 L Monocytes % 6.4 Monocytes % (Manual) 4 Eosinophils % 0.0 D Basophils % 0.3 Nucleated RBC % 0 Platelet Estimate Adequate Platelet Comment No clumping noted PT with INR INR PTT (Actin FS) VBG pH POC VBG pCO2 POC VBG pO2 VBG HCO3 VBG O2 Sat (Tiffany) VBG Base Excess Sodium 142 Potassium 4.2 Chloride 106 Carbon Dioxide 26 Anion Gap 10 BUN 32.9 H Creatinine 1.5 H Est GFR (CKD-EPI)AfAm 50.59 Est GFR (CKD-EPI)NonAf 43.65 Random Glucose 214 H Lactic Acid Calcium 9.4 Total Bilirubin 1.4 H AST 57 H ALT 53 Alkaline Phosphatase 154 H Creatine Kinase 325 H Creatine Kinase Index 1.1 CK-MB (CK-2) 3.8 H Troponin I 2.61 H* Total Protein 8.2 Albumin 3.0 L Urine Color Urine Appearance Urine pH Ur Specific [place] Urine Protein Urine Glucose (UA) Urine Ketones Urine Blood Urine Nitrite Urine Bilirubin Urine Urobilinogen Ur Leukocyte Esterase Urine WBC (Auto) Urine RBC (Auto) Urine Casts (Auto) U Epithel Cells (Auto) Urine Bacteria (Auto) 11/13/19 11/13/19 11/13/19 21:30 21:30 21:30 WBC RBC Hgb Hct MCV MCH MCHC RDW Plt Count MPV Absolute Neuts (auto) Total Counted Neutrophils % Neutrophils % (Manual) Band Neutrophils % Lymphocytes % Lymphocytes % (Manual) Monocytes % Monocytes % (Manual) Eosinophils % Basophils % Nucleated RBC % Platelet Estimate Platelet Comment PT with INR 15.50 H INR 1.31 H PTT (Actin FS) 28.6 VBG pH 7.39 POC VBG pCO2 44.4 POC VBG pO2 < 49 H VBG HCO3 26.3 VBG O2 Sat (Tiffany) 35.3 L VBG Base Excess 1.5 Sodium Potassium Chloride Carbon Dioxide Anion Gap BUN Creatinine Est GFR (CKD-EPI)AfAm Est GFR (CKD-EPI)NonAf Random Glucose Lactic Acid 4.0 H* Calcium Total Bilirubin AST ALT Alkaline Phosphatase Creatine Kinase Creatine Kinase Index CK-MB (CK-2) Troponin I Total Protein Albumin Urine Color Urine Appearance Urine pH Ur Specific [place] Urine Protein Urine Glucose (UA) Urine Ketones Urine Blood Urine Nitrite Urine Bilirubin Urine Urobilinogen Ur Leukocyte Esterase Urine WBC (Auto) Urine RBC (Auto) Urine Casts (Auto) U Epithel Cells (Auto) Urine Bacteria (Auto) 11/14/19 00:45 WBC RBC Hgb Hct MCV MCH MCHC RDW Plt Count MPV Absolute Neuts (auto) Total Counted Neutrophils % Neutrophils % (Manual) Band Neutrophils % Lymphocytes % Lymphocytes % (Manual) Monocytes % Monocytes % (Manual) Eosinophils % Basophils % Nucleated RBC % Platelet Estimate Platelet Comment PT with INR INR PTT (Actin FS) VBG pH POC VBG pCO2 POC VBG pO2 VBG HCO3 VBG O2 Sat (Tiffany) VBG Base Excess Sodium Potassium Chloride Carbon Dioxide Anion Gap BUN Creatinine Est GFR (CKD-EPI)AfAm Est GFR (CKD-EPI)NonAf Random Glucose Lactic Acid Calcium Total Bilirubin AST ALT Alkaline Phosphatase Creatine Kinase Creatine Kinase Index CK-MB (CK-2) Troponin I Total Protein Albumin Urine Color Yellow Urine Appearance Cloudy Urine pH 5.0 Ur Specific [place] 1.022 Urine Protein 2+ H Urine Glucose (UA) Negative Urine Ketones Negative Urine Blood 3+ H Urine Nitrite Positive H Urine Bilirubin Negative Urine Urobilinogen 0.2 Ur Leukocyte Esterase Negative Urine WBC (Auto) 7 Urine RBC (Auto) 1 Urine Casts (Auto) 10 U Epithel Cells (Auto) 3.3 Urine Bacteria (Auto) 196.7 Intake & Output 11/11/19 11/12/19 11/13/19 11/14/19 23:59 23:59 23:59 23:59 Weight 70.307 kg Current Medications Generic Name Dose Route Start Last Admin Trade Name Freq PRN Reason Stop Dose Admin Aspirin 81 mg 11/15/19 10:00 Asa - PO DAILY [facility] Heparin Sodium (Porcine) 1,000 unit 11/14/19 00:36 Heparin - IVPUSH PRN PRN Heparin Heparin Sodium (Porcine) 5,000 unit 11/14/19 00:36 Heparin - IVPUSH PRN PRN Heparin Vancomycin HCl 1,000 mg/ 250 mls @ 200 mls/hr 11/14/19 22:00 Dextrose IVPB Q24H [facility] Protocol Piperacillin Sod/Tazobactam 50 mls @ 100 mls/hr 11/14/19 09:00 Sod 2.25 gm/ Dextrose IVPB Q6H-IV [facility] Protocol Vancomycin HCl 1,000 mg in 250 mls @ 166.667 mls/hr 11/14/19 22:00 Vancomycin (Pre-Docked) IVPB 11/14/19 23:29 ONCE ONE Piperacillin Sod/Tazobactam 50 mls @ 100 mls/hr 11/14/19 09:00 Sod 2.25 gm/ Dextrose IVPB 11/15/19 03:29 Q6H-IV [facility] Protocol Heparin Sodium/Dextrose 25,000 units in 500 mls @ 20 mls/hr 11/14/19 00:45 Heparin Infusion - IVPB TITR [facility] Protocol 1,000 UNITS/HR Lisinopril 5 mg 11/14/19 10:00 Prinivil PO DAILY [facility] Memantine 5 mg 11/14/19 10:00 Namenda - PO BID [facility] Imaging - Results Chest X-ray: Image Reviewed Cat Scan: Pending EKG: Image Reviewed Problem List - Problems (1) Sepsis Code(s): A41.9 - SEPSIS, UNSPECIFIED ORGANISM (2) NSTEMI (non-ST elevated myocardial infarction) Code(s): I21.4 - NON-ST ELEVATION (NSTEMI) MYOCARDIAL INFARCTION (3) UTI (urinary tract infection) Code(s): N39.0 - URINARY TRACT INFECTION, SITE NOT SPECIFIED (4) VIJAY (acute kidney injury) Code(s): N17.9 - ACUTE KIDNEY FAILURE, UNSPECIFIED (5) Aortic stenosis Code(s): I35.0 - NONRHEUMATIC AORTIC (VALVE) STENOSIS (6) Dementia Code(s): F03.90 - UNSPECIFIED DEMENTIA WITHOUT BEHAVIORAL DISTURBANCE (7) HTN (hypertension) Code(s): I10 - ESSENTIAL (PRIMARY) HYPERTENSION (8) Hyperglycemia Code(s): R73.9 - HYPERGLYCEMIA, UNSPECIFIED (9) LBBB (left bundle branch block) Code(s): I44.7 - LEFT BUNDLE-BRANCH BLOCK, UNSPECIFIED Assessment/Plan This is a 78 y/o man with a PMHx of HTN, Dementia. Admitted to Telemetry for Sepsis, NSTEMI, VIJAY for further evaluation of their emergent condition. Plan: #Sepsis Likely due to Pneumonia vs UTI CURB65- 3 qSOFA-2 +leukocytosis with L-shift Lactic Acid 4.0 Fluid Bolus given in ED Repeat lactic acid-post boluses Blood Cultures-pending UA, Urine Culture, Urirne Legionella-pending Chest Xray image reviewed ?patchy density in right lobes Zosyn and Vancomycin given in ED, will continue renal dosing Appreciate ID Consult Monitor CBC, BMP Monitor vitals Maintain MAP >65 # NSTEMI Trop 2.61 Serial enzymes Continue cardiac monitoring Cardiology consulted by ED resident Dr Islas Treatment for NSTEMI- pending Head CT Head CT- neg ICH Stool Occult- neg Heparin Drip ordered EKG- NSR with left deviation, LBBB Serial EKGs Echo in am Lipid Panel in am TSH Continue Asa # Acute Metabolic Encephalopathy Likely due to Sepsis vs advancing disease process Head CT-pending Neurochecks Fall Precautions O2 Monitor vitals # UTI UA +nitrates, +3 blood bacteria 196 Urine Culture-pending Received Zosyn, Vanc for sepsis ID consult appreciated Monitor vitals Monitor CBC # VIJAY Likely secondary to demand ischemia Consider Nephrology consult if Cr worsens Monitor BMP Avoid Nephrotoxic drugs #Dementia Continue home meds Fall precautions FEN Replete lytes prn NPO DVT ppx OOB SCDs On Heparin Drip for NSTEMI Dispo: Requires Inpatient Care Visit type - Emergency Visit Emergency Visit: Yes ED Registration Date: 11/13/19 Care time: The patient presented to the Emergency Department on the above date and was hospitalized for further evaluation of their emergent condition. - New Patient This patient is new to me today: Yes Date on this admission: 11/13/19 - Critical Care Critical Care patient: No
[2019-11-14] MEDS ORDERED: ASPIRIN 81 MG CHEWABLE TABLETS PO ONE (00:33)
[2019-11-14] MEDS ORDERED: ATORVASTATIN CA 80 MG TABLET (FP) PO ONE (00:33)
[2019-11-14] MEDS ORDERED: CLOPIDOGREL BISULFATE 300 MG TABLET PO ONE (00:33)
[2019-11-14] MEDS ORDERED: HEPARIN NA (PORCINE) 5,000 UNITS/ML 1ML VIAL IVPUSH PRN (00:36)
[2019-11-14] MEDS ORDERED: HEPARIN INFUSION - 25,000 UNITS/500 ML INFUS.BAG IVPB SCH (00:45)
[2019-11-14 00:59] LABS: EPI CELLS 3.3 /HPF (0-5/HPF); HYALINE CASTS 10 /lpf (0-8); URINE APPEARANCE CLOUDY; URINE BACTERIA 196.7 /hpf (NEGATIVE); URINE BILIRUBIN NEGATIVE (NEGATIVE); URINE COLOR YELLOW; URINE GLUCOSE (UA) NEGATIVE (NEGATIVE); URINE KETONE NEGATIVE (NEGATIVE); URINE LEUK ESTERASE NEGATIVE (NEGATIVE); URINE NITRITE POSITIVE (NEGATIVE); URINE PROTEIN 2+ (NEGATIVE); URINE RBC 1 /hpf (0-4); URINE UROBILINOGEN 0.2 mg/dL (0.2-1.0); URINE WBC 7 /hpf (0-5)
[2019-11-14] MEDS ORDERED: HEPARIN NA (PORCINE) 5,000 UNITS/ML 1ML VIAL ONE ×2 (01:31→11:26)
[2019-11-14] MEDS ORDERED: ASPIRIN 81 MG CHEWABLE TABLETS ONE (01:31)
[2019-11-14] MEDS ORDERED: ATORVASTATIN CA 80 MG TABLET (FP) ONE (01:31)
[2019-11-14] MEDS ORDERED: HEPARIN INFUSION - 25,000 UNITS/500 ML INFUS.BAG IVPB ONE (01:32)
[2019-11-14] MEDS: HEPARIN NA (PORCINE) 5,000 UNITS/ML 1ML VIAL IVPUSH PRN ×2 (01:52→11:25)
[2019-11-14] MEDS ORDERED: CLOPIDOGREL BISULFATE 300 MG TABLET ONE (01:56)
[2019-11-14 06:58] LABS: BASO % 0.1 % (0-2.0); HEMATOCRIT 39.2 % (35.4-49); HEMOGLOBIN 12.9 GM/dL (11.7-16.9); LYMPH % 3.5 % (8-40); MCH 29.2 pg (25.7-33.7); MCHC 32.9 g/dl (32.0-35.9); MEAN CELL VOLUME 88.8 fl (80-96); MEAN PLT VOLUME 11.9 fl (7.5-11.1); MONO % 7.8 % (3.8-10.2); NEUT % 88.6 % (42.8-82.8); PLATELET COUNT 153 K/MM3 (134-434); RBC 4.41 M/mm3 (4.00-5.60); RDW 14.3 % (11.9-15.9); WHITE BLOOD COUNT 20.7 K/mm3 (4.0-10.0)
[2019-11-14 07:55] LABS: BLOOD UREA NITROGEN 40.4 mg/dL (7-18); CALCIUM 8.9 mg/dL (8.5-10.1); CREATININE 1.7 mg/dL (0.55-1.3); MAGNESIUM 2.5 mg/dL (1.8-2.4); PHOSPHOROUS 2.2 mg/dL (2.5-4.9); POTASSIUM 3.4 mmol/L (3.5-5.1)
[2019-11-14] MEDS ORDERED: LISINOPRIL 5 MG TABLET (FP) PO SCH (10:00)
[2019-11-14] MEDS ORDERED: PIPERACILLIN/TAZOB 3.375 GM 3.375 GM/50 ML BAG IVPB ONE ×2 (10:19→15:17)
[2019-11-14 10:34] LABS: ANISOCYTOSIS 0; MACROCYTOSIS 0; PLATELET ESTIMATE DECREASED
[2019-11-14] MEDS: PIPERACILLIN/TAZOB 2.25 GM 2.25 GM in DEXTROSE 5%-WATER - 50 ML IVPB SCH ×2 (10:46→15:28)
[2019-11-14] MEDS: MEMANTINE HCL 5 MG TABLET (UD) PO SCH ×2 (10:46→22:04)
--- NOTE | 2019-11-14 10:53 | PN ---
Progress Note, Physician Chief Complaint: NSTEMI Sepsis History of Present Illness: Previous notes and events reviewed awake, confused NAD sts having intermittent chest pain and dyspnea Trop trending down 2.61~1.85 Heparin drip infusing - Current Medication List Current Medications: Active Medications Aspirin (Asa -) 81 mg PO DAILY [facility] Heparin Sodium (Porcine) (Heparin -) 1,000 unit IVPUSH PRN PRN PRN Reason: Heparin Heparin Sodium (Porcine) (Heparin -) 5,000 unit IVPUSH PRN PRN PRN Reason: Heparin Last Admin: 11/14/19 01:52 Dose: 5,000 unit Vancomycin HCl 1,000 mg/ (Dextrose) 250 mls @ 200 mls/hr IVPB Q24H [facility]; Protocol Piperacillin Sod/Tazobactam (Sod 2.25 gm/ Dextrose) 50 mls @ 100 mls/hr IVPB Q6H-IV [facility]; Protocol Vancomycin HCl (Vancomycin (Pre-Docked)) 1,000 mg in 250 mls @ 166.667 mls/hr IVPB ONCE ONE Stop: 11/14/19 23:29 Piperacillin Sod/Tazobactam (Sod 2.25 gm/ Dextrose) 50 mls @ 100 mls/hr IVPB Q6H-IV [facility]; Protocol Stop: 11/15/19 03:29 Last Admin: 11/14/19 10:46 Dose: 100 mls/hr Heparin Sodium/Dextrose (Heparin Infusion -) 25,000 units in 500 mls @ 20 mls/ hr IVPB TITR [facility]; Protocol Last Admin: 11/14/19 01:52 Dose: 1,000 units/hr, 20 mls/hr Memantine (Namenda -) 5 mg PO BID [facility] Last Admin: 11/14/19 10:46 Dose: 5 mg - Objective Vital Signs: Vital Signs Temperature 98.8 F 11/13/19 20:46 Pulse Rate 91 H 11/14/19 06:54 Respiratory Rate 20 11/14/19 06:54 Blood Pressure 114/67 11/14/19 06:54 O2 Sat by Pulse Oximetry (%) 98 11/14/19 01:02 Constitutional: Yes: No Distress, Calm Eyes: Yes: Conjunctiva Clear HENT: Yes: Atraumatic Cardiovascular: Yes: Pulse Irregular Respiratory: Yes: Regular, Diminished Gastrointestinal: Yes: Normal Bowel Sounds, Soft Genitourinary: Yes: Incontinence Musculoskeletal: Yes: Muscle Weakness Extremities: Yes: WNL Edema: No Neurological: Yes: Alert, Confusion Psychiatric: Yes: Alert Labs: CBC, BMP 11/14/19 05:32 11/14/19 05:32 INR, PTT INR 1.31 (0.83-1.09) H 11/13/19 21:30 Microbiology 11/14/19 00:45 Urine For Antigen Detection Legionella Antigen - Final 11/14/19 00:45 Urine For Antigen Detection Streptococcus pneumoniae Antigen (M - Final Problem List - Problems (1) VIJAY (acute kidney injury) Assessment/Plan: -BUN/Cr 40.4/1.7 -monitor renal function daily -Renal consult Code(s): N17.9 - ACUTE KIDNEY FAILURE, UNSPECIFIED (2) NSTEMI (non-ST elevated myocardial infarction) Assessment/Plan: -Cardiology consult -Troponin 2.61~2.07~1.85 -Tele monitoring -EKG shows NSR with LBBB -Heparin drip infusing -received Plavix 300mg x 1, Atorvastatin 80mg x 1, Aspirin 324mg x 1 in ER -Atorvastatin -Echocardiogram -Aspirin Code(s): I21.4 - NON-ST ELEVATION (NSTEMI) MYOCARDIAL INFARCTION (3) Sepsis Assessment/Plan: -ID consult -LA 4.0~2.8 -Leukocytosis WBC 20.7 -afebrile -CXR shows no acute pathology -Urine Legionella negative -pending UC and BC results -received Vancomycin and Zosyn in ER -tylenol for temp >100F -ICU consult Code(s): A41.9 - SEPSIS, UNSPECIFIED ORGANISM (4) Dementia Assessment/Plan: -Neurology consult -Head CT scan shows moderate atrophy, no gross evidence of a focal intracranial lesion or hemorrhage -Namenda Code(s): F03.90 - UNSPECIFIED DEMENTIA WITHOUT BEHAVIORAL DISTURBANCE (5) HTN (hypertension) Assessment/Plan: -low Na diet Code(s): I10 - ESSENTIAL (PRIMARY) HYPERTENSION Assessment/Plan see problem list
--- NOTE | 2019-11-14 10:56 | CON.CARD ---
Consult Consult Specialty:: cardiology Reason for Consultation:: elevated TP - History of Present Illness History of Present Illness: 78 y/o man from [facility] with HTN, Dementia. [facility], at around 8-8:15pm the nurse found the patient to be unresponsive, eyes opened, staring straight ahead. [facility] notes states the episode lasted 15 minutes before the patient became more responsive. CXR is clear Elevated WBC, LA and troponin elevated up to 2.6 Positive blood culture. 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 Cardio/Vascular: Yes: Aortic Stenosis, HTN Psych: Yes: Other Endocrine: Yes: Diabetes Mellitus - Alcohol/Substance Use Hx Alcohol Use: No History of Substance Use: reports: None - Smoking History Smoking history: Never smoked - Social History ADL: Support Services History of Recent Travel: No Home Medications - Allergies Allergies/Adverse Reactions: Allergies Allergy/AdvReac Type Severity Reaction Status Date / Time No Known Allergies Allergy Verified 01/28/18 13:56 - Home Medications Home Medications: Ambulatory Orders Insulin (Levemir) [Levemir Vial] 12 units SQ AM ml 01/30/18 Donepezil HCl [Aricept -] 10 mg PO HS 11/14/19 Lisinopril 5 mg PO DAILY 11/14/19 Memantine HCl [Namenda -] 5 mg PO BID 11/14/19 Review of Systems Unable to obtain ROS, reason: dementia Vital Signs: Vital Signs Temperature 98.8 F 11/13/19 20:46 Pulse Rate 91 H 11/14/19 06:54 Respiratory Rate 20 11/14/19 06:54 Blood Pressure 114/67 11/14/19 06:54 O2 Sat by Pulse Oximetry (%) 98 11/14/19 01:02 Constitutional: Yes: No Distress, Cachectic, Thin Eyes: Yes: Conjunctiva Clear HENT: Yes: Atraumatic, Normocephalic Neck: Yes: Supple, Trachea Midline Respiratory: Yes: Regular, CTA Bilaterally Gastrointestinal: Yes: Normal Bowel Sounds Cardiovascular: Yes: Regular Rate and Rhythm Heart Sounds: Yes: S1, S2 Murmur: No: Systolic Murmur Peripheral Pulses WNL: No - Other Data Labs, Other Data: CBC, BMP 11/14/19 05:32 11/14/19 05:32 INR, PTT INR 1.31 (0.83-1.09) H 11/13/19 21:30 Troponin, BNP 11/13/19 11/14/19 11/14/19 21:30 05:32 09:50 Troponin I 2.61 H* 2.07 H* 1.85 H* Troponin, BNP 11/13/19 11/14/19 11/14/19 21:30 05:32 09:50 Troponin I 2.61 H* 2.07 H* 1.85 H* NSR LBBB Problem List - Problems (1) VIJAY (acute kidney injury) Code(s): N17.9 - ACUTE KIDNEY FAILURE, UNSPECIFIED (2) NSTEMI (non-ST elevated myocardial infarction) Code(s): I21.4 - NON-ST ELEVATION (NSTEMI) MYOCARDIAL INFARCTION Assessment/Plan This is a 78 y/o man from [facility] with a PMHx of HTN, Dementia. Who presents to the emergency department [facility] for AMS. Has modest TP elevation and positive blood cultures. Prior history is notable for LBBB and moderate to severe . Possibly sepsis and on broad spectrum Abx. His TP elevation is due to demand mediated ischemia and not from ACS. From a cardiac standpoint systemic heparin can be stopped. Continue medical therapy for underlying CAD. After paatient has stabilized reasonable to consider true yadira therapy and possibly ACEI if renal function is stable and is he has LV dysfunction. He is not a candidate for invasive cardiac therapies. Will see as needed.
--- NOTE | 2019-11-14 13:24 | CONSULT ---
Consultation: REQUESTING PROVIDER: Dr. Orr CONSULT REQUEST: We have been asked to medically evaluate this patient for ICU management. HISTORY OF PRESENT ILLNESS: 78 M with PMH of HTN, dementia, Aortic stenosis, DM, who presented to the emergency department for AMS from the prior night. He is from [facility] where he was noted to be unresponsive with his eyes opened and staring straight ahead. This episode was said to last for about 15 minutes before he became more responsive, he had no shaking activity. Patient was noted to have elevated troponins on presentation of 2.61 which has downtrended. Patient was noted to have LBBB on EKG, which was also present earlier. Today on exam patient was still altered and only responded "i'm good" to all questions. He denies all symptoms in a ROS. REVIEW OF SYSTEMS: CONSTITUTIONAL: Absent: fever, chills, diaphoresis, generalized weakness, malaise, loss of appetite, weight change HEENT: Absent: rhinorrhea, nasal congestion, throat pain, throat swelling, difficulty swallowing, mouth swelling, ear pain, eye pain, visual changes CARDIOVASCULAR: Absent: chest pain, syncope, palpitations, irregular heart rate, lightheadedness, peripheral edema RESPIRATORY: Absent: cough, shortness of breath, dyspnea with exertion, orthopnea, wheezing, stridor, hemoptysis GASTROINTESTINAL: Absent: abdominal pain, abdominal distension, nausea, vomiting, diarrhea, constipation, melena, hematochezia GENITOURINARY: Absent: dysuria, frequency, urgency, hesitancy, hematuria, flank pain, genital pain MUSCULOSKELETAL: Absent: myalgia, arthralgia, joint swelling, back pain, neck pain SKIN: Absent: rash, itching, pallor HEMATOLOGIC/IMMUNOLOGIC: Absent: easy bleeding, easy bruising, lymphadenopathy, frequent infections ENDOCRINE: Absent: unexplained weight gain, unexplained weight loss, heat intolerance, cold intolerance NEUROLOGIC: Absent: headache, focal weakness or paresthesias, dizziness, unsteady gait, seizure, mental status changes, bladder or bowel incontinence PSYCHIATRIC: Absent: anxiety, depression, suicidal or homicidal ideation, hallucinations. PHYSICAL EXAMINATION Vital Signs - 24 hr 11/13/19 11/14/19 11/14/19 20:46 01:02 03:00 Temperature 98.8 F Pulse Rate 79 Pulse Rate [ 103 H 93 H Radial] Respiratory 18 21 H 20 Rate Blood Pressure 96/55 L Blood Pressure 121/89 121/89 [Left Arm] O2 Sat by Pulse 100 98 Oximetry (%) 11/14/19 11/14/19 11/14/19 06:54 08:00 10:00 Temperature 98.9 F Pulse Rate Pulse Rate [ 91 H 99 H Radial] Respiratory 20 22 H Rate Blood Pressure Blood Pressure 114/67 120/67 [Left Arm] O2 Sat by Pulse 100 100 Oximetry (%) 11/14/19 12:47 Temperature Pulse Rate Pulse Rate [ 93 H Radial] Respiratory 22 H Rate Blood Pressure Blood Pressure 121/80 [Left Arm] O2 Sat by Pulse 99 Oximetry (%) GENERAL: Awake, alert, oriented to self. Not in acute distress. HEAD: Normal with no signs of trauma. EYES: Pupils equal, round and reactive to light. EARS, NOSE, THROAT: Ears normal, nares patent, oropharynx clear without exudates. Moist mucous membranes. NECK: Normal range of motion, supple without lymphadenopathy, JVD, or masses. LUNGS: Breath sounds equal, clear to auscultation bilaterally. No wheezes, and no crackles. HEART:Regular rate and rhythm, systolic murmur 3/6. No rubs or gallops appreciated. ABDOMEN: Soft, nontender, not distended, normoactive bowel sounds, no guarding, no rebound, no masses. MUSCULOSKELETAL: Normal range of motion at all joints. No bony deformities or tenderness. . LOWER EXTREMITIES: 2+ pulses, warm, well-perfused. No calf tenderness. No peripheral edema. NEUROLOGICAL: Does not follow command. Unable to assess. SKIN: Warm, dry, normal turgor, no rashes or lesions noted. Laboratory Results - last 24 hr 11/13/19 11/13/19 11/13/19 21:30 21:30 21:30 WBC 19.6 H RBC 4.95 Hgb 14.6 Hct 44.0 MCV 88.9 MCH 29.4 MCHC 33.1 RDW 14.5 Plt Count 163 D MPV 11.2 H D Absolute Neuts (auto) 17.9 H Total Counted 100 Neutrophils % 91.1 H D Neutrophils % (Manual) 85.0 H Band Neutrophils % 8.0 Lymphocytes % 2.2 L D Lymphocytes % (Manual) 3.0 L Monocytes % 6.4 Monocytes % (Manual) 4 Eosinophils % 0.0 D Eosinophils % (Manual) Basophils % 0.3 Basophils % (Manual) Myelocytes % (Man) Promyelocytes % (Man) Blast Cells % (Manual) Nucleated RBC % 0 Metamyelocytes Hypochromia Platelet Estimate Adequate Platelet Comment No clumping noted Polychromasia Poikilocytosis Anisocytosis Microcytosis Macrocytosis PT with INR INR PTT (Actin FS) VBG pH POC VBG pCO2 POC VBG pO2 VBG HCO3 VBG O2 Sat (Tiffany) VBG Base Excess Sodium 142 Potassium 4.2 Chloride 106 Carbon Dioxide 26 Anion Gap 10 BUN 32.9 H Creatinine 1.5 H Est GFR (CKD-EPI)AfAm 50.59 Est GFR (CKD-EPI)NonAf 43.65 POC Glucometer Random Glucose 214 H Hemoglobin A1c % Lactic Acid Calcium 9.4 Phosphorus Magnesium Total Bilirubin 1.4 H AST 57 H ALT 53 Alkaline Phosphatase 154 H Creatine Kinase 325 H Creatine Kinase Index 1.1 CK-MB (CK-2) 3.8 H Troponin I 2.61 H* Total Protein 8.2 Albumin 3.0 L Triglycerides Cholesterol Total LDL Cholesterol HDL Cholesterol TSH Urine Color Urine Appearance Urine pH Ur Specific Hamilton Urine Protein Urine Glucose (UA) Urine Ketones Urine Blood Urine Nitrite Urine Bilirubin Urine Urobilinogen Ur Leukocyte Esterase Urine WBC (Auto) Urine RBC (Auto) Urine Casts (Auto) U Epithel Cells (Auto) Urine Bacteria (Auto) Stool Occult Blood 11/13/19 11/13/19 11/13/19 21:30 21:30 21:30 WBC RBC Hgb Hct MCV MCH MCHC RDW Plt Count MPV Absolute Neuts (auto) Total Counted Neutrophils % Neutrophils % (Manual) Band Neutrophils % Lymphocytes % Lymphocytes % (Manual) Monocytes % Monocytes % (Manual) Eosinophils % Eosinophils % (Manual) Basophils % Basophils % (Manual) Myelocytes % (Man) Promyelocytes % (Man) Blast Cells % (Manual) Nucleated RBC % Metamyelocytes Hypochromia Platelet Estimate Platelet Comment Polychromasia Poikilocytosis Anisocytosis Microcytosis Macrocytosis PT with INR 15.50 H INR 1.31 H PTT (Actin FS) 28.6 VBG pH 7.39 POC VBG pCO2 44.4 POC VBG pO2 < 49 H VBG HCO3 26.3 VBG O2 Sat (Tiffany) 35.3 L VBG Base Excess 1.5 Sodium Potassium Chloride Carbon Dioxide Anion Gap BUN Creatinine Est GFR (CKD-EPI)AfAm Est GFR (CKD-EPI)NonAf POC Glucometer Random Glucose Hemoglobin A1c % Lactic Acid 4.0 H* Calcium Phosphorus Magnesium Total Bilirubin AST ALT Alkaline Phosphatase Creatine Kinase Creatine Kinase Index CK-MB (CK-2) Troponin I Total Protein Albumin Triglycerides Cholesterol Total LDL Cholesterol HDL Cholesterol TSH Urine Color Urine Appearance Urine pH Ur Specific Hamilton Urine Protein Urine Glucose (UA) Urine Ketones Urine Blood Urine Nitrite Urine Bilirubin Urine Urobilinogen Ur Leukocyte Esterase Urine WBC (Auto) Urine RBC (Auto) Urine Casts (Auto) U Epithel Cells (Auto) Urine Bacteria (Auto) Stool Occult Blood 11/14/19 11/14/19 11/14/19 00:45 00:45 03:00 WBC RBC Hgb Hct MCV MCH MCHC RDW Plt Count MPV Absolute Neuts (auto) Total Counted Neutrophils % Neutrophils % (Manual) Band Neutrophils % Lymphocytes % Lymphocytes % (Manual) Monocytes % Monocytes % (Manual) Eosinophils % Eosinophils % (Manual) Basophils % Basophils % (Manual) Myelocytes % (Man) Promyelocytes % (Man) Blast Cells % (Manual) Nucleated RBC % Metamyelocytes Hypochromia Platelet Estimate Platelet Comment Polychromasia Poikilocytosis Anisocytosis Microcytosis Macrocytosis PT with INR INR PTT (Actin FS) VBG pH POC VBG pCO2 POC VBG pO2 VBG HCO3 VBG O2 Sat (Tiffany) VBG Base Excess Sodium Potassium Chloride Carbon Dioxide Anion Gap BUN Creatinine Est GFR (CKD-EPI)AfAm Est GFR (CKD-EPI)NonAf POC Glucometer Random Glucose Hemoglobin A1c % Lactic Acid 2.8 H* Calcium Phosphorus Magnesium Total Bilirubin AST ALT Alkaline Phosphatase Creatine Kinase Creatine Kinase Index CK-MB (CK-2) Troponin I Total Protein Albumin Triglycerides Cholesterol Total LDL Cholesterol HDL Cholesterol TSH Urine Color Yellow Urine Appearance Cloudy Urine pH 5.0 Ur Specific Hamilton 1.022 Urine Protein 2+ H Urine Glucose (UA) Negative Urine Ketones Negative Urine Blood 3+ H Urine Nitrite Positive H Urine Bilirubin Negative Urine Urobilinogen 0.2 Ur Leukocyte Esterase Negative Urine WBC (Auto) 7 Urine RBC (Auto) 1 Urine Casts (Auto) 10 U Epithel Cells (Auto) 3.3 Urine Bacteria (Auto) 196.7 Stool Occult Blood Negative 11/14/19 11/14/19 11/14/19 04:54 05:32 05:32 WBC 20.7 H RBC 4.41 Hgb 12.9 Hct 39.2 MCV 88.8 MCH 29.2 MCHC 32.9 RDW 14.3 Plt Count 153 MPV 11.9 H Absolute Neuts (auto) 18.4 H Total Counted Neutrophils % 88.6 H Neutrophils % (Manual) 71.6 Band Neutrophils % 15.7 Lymphocytes % 3.5 L D Lymphocytes % (Manual) 3.9 L D Monocytes % 7.8 Monocytes % (Manual) 8 D Eosinophils % 0.0 Eosinophils % (Manual) 0.0 Basophils % 0.1 Basophils % (Manual) 0.0 Myelocytes % (Man) 0 Promyelocytes % (Man) 0 Blast Cells % (Manual) 0 Nucleated RBC % 0 Metamyelocytes 1 Hypochromia 0 Platelet Estimate Decreased Platelet Comment Polychromasia 0 Poikilocytosis 0 Anisocytosis 0 Microcytosis 0 Macrocytosis 0 PT with INR INR PTT (Actin FS) VBG pH POC VBG pCO2 POC VBG pO2 VBG HCO3 VBG O2 Sat (Tiffany) VBG Base Excess Sodium Potassium Chloride Carbon Dioxide Anion Gap BUN Creatinine Est GFR (CKD-EPI)AfAm Est GFR (CKD-EPI)NonAf POC Glucometer 223 Random Glucose Hemoglobin A1c % Lactic Acid Calcium Phosphorus Magnesium Total Bilirubin AST ALT Alkaline Phosphatase Creatine Kinase Creatine Kinase Index CK-MB (CK-2) Troponin I 2.07 H* Total Protein Albumin Triglycerides Cholesterol Total LDL Cholesterol HDL Cholesterol TSH Urine Color Urine Appearance Urine pH Ur Specific Hamilton Urine Protein Urine Glucose (UA) Urine Ketones Urine Blood Urine Nitrite Urine Bilirubin Urine Urobilinogen Ur Leukocyte Esterase Urine WBC (Auto) Urine RBC (Auto) Urine Casts (Auto) U Epithel Cells (Auto) Urine Bacteria (Auto) Stool Occult Blood 11/14/19 11/14/19 11/14/19 05:32 05:32 09:03 WBC RBC Hgb Hct MCV MCH MCHC RDW Plt Count MPV Absolute Neuts (auto) Total Counted Neutrophils % Neutrophils % (Manual) Band Neutrophils % Lymphocytes % Lymphocytes % (Manual) Monocytes % Monocytes % (Manual) Eosinophils % Eosinophils % (Manual) Basophils % Basophils % (Manual) Myelocytes % (Man) Promyelocytes % (Man) Blast Cells % (Manual) Nucleated RBC % Metamyelocytes Hypochromia Platelet Estimate Platelet Comment Polychromasia Poikilocytosis Anisocytosis Microcytosis Macrocytosis PT with INR INR PTT (Actin FS) 34.7 VBG pH POC VBG pCO2 POC VBG pO2 VBG HCO3 VBG O2 Sat (Tiffany) VBG Base Excess Sodium 142 Potassium 3.4 L Chloride 107 Carbon Dioxide 28 Anion Gap 7 L BUN 40.4 H Creatinine 1.7 H Est GFR (CKD-EPI)AfAm 43.49 Est GFR (CKD-EPI)NonAf 37.52 POC Glucometer Random Glucose 197 H Hemoglobin A1c % 6.9 H Lactic Acid Calcium 8.9 Phosphorus 2.2 L Magnesium 2.5 H Total Bilirubin AST ALT Alkaline Phosphatase Creatine Kinase Creatine Kinase Index CK-MB (CK-2) Troponin I Total Protein Albumin Triglycerides 157 H Cholesterol 153 Total LDL Cholesterol 85 HDL Cholesterol 24 L TSH 1.26 D Urine Color Urine Appearance Urine pH Ur Specific Hamilton Urine Protein Urine Glucose (UA) Urine Ketones Urine Blood Urine Nitrite Urine Bilirubin Urine Urobilinogen Ur Leukocyte Esterase Urine WBC (Auto) Urine RBC (Auto) Urine Casts (Auto) U Epithel Cells (Auto) Urine Bacteria (Auto) Stool Occult Blood 11/14/19 09:50 WBC RBC Hgb Hct MCV MCH MCHC RDW Plt Count MPV Absolute Neuts (auto) Total Counted Neutrophils % Neutrophils % (Manual) Band Neutrophils % Lymphocytes % Lymphocytes % (Manual) Monocytes % Monocytes % (Manual) Eosinophils % Eosinophils % (Manual) Basophils % Basophils % (Manual) Myelocytes % (Man) Promyelocytes % (Man) Blast Cells % (Manual) Nucleated RBC % Metamyelocytes Hypochromia Platelet Estimate Platelet Comment Polychromasia Poikilocytosis Anisocytosis Microcytosis Macrocytosis PT with INR INR PTT (Actin FS) VBG pH POC VBG pCO2 POC VBG pO2 VBG HCO3 VBG O2 Sat (Tiffany) VBG Base Excess Sodium Potassium Chloride Carbon Dioxide Anion Gap BUN Creatinine Est GFR (CKD-EPI)AfAm Est GFR (CKD-EPI)NonAf POC Glucometer Random Glucose Hemoglobin A1c % Lactic Acid Calcium Phosphorus Magnesium Total Bilirubin AST ALT Alkaline Phosphatase Creatine Kinase Creatine Kinase Index CK-MB (CK-2) Troponin I 1.85 H* Total Protein Albumin Triglycerides Cholesterol Total LDL Cholesterol HDL Cholesterol TSH Urine Color Urine Appearance Urine pH Ur Specific Hamilton Urine Protein Urine Glucose (UA) Urine Ketones Urine Blood Urine Nitrite Urine Bilirubin Urine Urobilinogen Ur Leukocyte Esterase Urine WBC (Auto) Urine RBC (Auto) Urine Casts (Auto) U Epithel Cells (Auto) Urine Bacteria (Auto) Stool Occult Blood Active Medications Generic Name Dose Route Start Last Admin Trade Name Freq PRN Reason Stop Dose Admin Aspirin 81 mg 11/15/19 10:00 Asa - PO DAILY MELVIN Atorvastatin Calcium 10 mg 11/14/19 22:00 Lipitor - PO HS MELVIN Heparin Sodium (Porcine) 1,000 unit 11/14/19 00:36 Heparin - IVPUSH PRN PRN Heparin Heparin Sodium (Porcine) 5,000 unit 11/14/19 00:36 11/14/19 11:25 Heparin - IVPUSH 5,000 unit PRN PRN Administration Heparin Vancomycin HCl 1,000 mg/ 250 mls @ 200 mls/hr 11/14/19 22:00 Dextrose IVPB Q24H MELVIN Protocol Piperacillin Sod/Tazobactam 50 mls @ 100 mls/hr 11/14/19 09:00 Sod 2.25 gm/ Dextrose IVPB Q6H-IV MELVIN Protocol Vancomycin HCl 1,000 mg in 250 mls @ 166.667 mls/hr 11/14/19 22:00 Vancomycin (Pre-Docked) IVPB 11/14/19 23:29 ONCE ONE Piperacillin Sod/Tazobactam 50 mls @ 100 mls/hr 11/14/19 09:00 11/14/19 10:46 Sod 2.25 gm/ Dextrose IVPB 11/15/19 03:29 100 mls/hr Q6H-IV MELVIN Administration Protocol Heparin Sodium/Dextrose 25,000 units in 500 mls @ 20 mls/hr 11/14/19 00:45 11/14/19 11:24 Heparin Infusion - IVPB 1,150 units/hr TITR MELVIN 23 mls/hr Titration Protocol 1,000 UNITS/HR Memantine 5 mg 11/14/19 10:00 11/14/19 10:46 Namenda - PO 5 mg BID MELVIN Administration ASSESSMENT/PLAN: 78 M with PMH of HTN, dementia, Aortic stenosis, DM who presents with AMS and UTI. Neuro -Hx of dementia -Unclear what baseline mental status is. Possibly toxic metabolic encephalopathy due to UTI. -Patient is awake and alert to self. -Neurochecks -Continue home meds of memantine and donepezil -recommend obtaining Neurology consult and EEG Cardio -Hx of LBBB, htn, aortic stenosis -Prior Echo in 2018 showed moderate to severe , normal LV function -Heparin drip started -Continue statin, plavix, and aspirin. -Cardiology consulted, would follow their recommendations. Pulmonary -maintaining airway well -Continue to monitor Renal -BUN/Creatinine is 40.4/1.7. -Elevated from baseline -Hydrate accordingly -Replete Potassium and Phos -Continue to monitor ID -Patient presented with UTI, U/A shows WBC of 7, Bacteria of 196. -F/U Cultures (urine and blood) -Continue abx (vanc and zoysn) DVT: On heparin drip F:IV fluids E:Monitor CMP N:NPO Dispo: Admitted to telemetry. Patient does not require ICU monitoring, please reconsult if patient becomes HD unstable, requires pressors, or airway management. Visit type - Emergency Visit Emergency Visit: Yes ED Registration Date: 11/13/19 Care time: The patient presented to the Emergency Department on the above date and was hospitalized for further evaluation of their emergent condition. - New Patient This patient is new to me today: Yes Date on this admission: 11/14/19 - Critical Care Critical Care patient: No ATTENDING PHYSICIAN STATEMENT I saw and evaluated the patient. I reviewed the resident's note and discussed the case with the resident. I agree with the resident's findings and plan as documented. SUBJECTIVE: OBJECTIVE: ASSESSMENT AND PLAN:
--- NOTE | 2019-11-14 14:12 | PN ---
Teaching Attending Note Name of Resident: Vargas Keys ATTENDING PHYSICIAN STATEMENT I saw and evaluated the patient. I reviewed the resident's note and discussed the case with the resident. I agree with the resident's findings and plan as documented. SUBJECTIVE: Pt seen and examined in the ER. Admitted for episode of unresponsiveness, currently awake but confused. No fevers recorded, has been hemodynamically stable. OBJECTIVE: Vital Signs Period Temp Pulse Resp BP Sys/[place] Pulse Ox Last 24 Hr 98.8 F-98.9 F 79-103 18-22 96-121/55-89 98-100 Intake & Output 11/11/19 11/12/19 11/13/19 11/14/19 23:59 23:59 23:59 23:59 Output Total 500 Balance -500 Weight 70.307 kg Gen: awake, confused Heart: RRR Lung: decreased breath sounds at the bases Abd: soft, nontender Ext: no edema CBC, BMP 11/14/19 05:32 11/14/19 05:32 Active Medications Aspirin (Asa -) 81 mg PO DAILY MELVIN Atorvastatin Calcium (Lipitor -) 10 mg PO HS MELVIN Heparin Sodium (Porcine) (Heparin -) 1,000 unit IVPUSH PRN PRN PRN Reason: Heparin Heparin Sodium (Porcine) (Heparin -) 5,000 unit IVPUSH PRN PRN PRN Reason: Heparin Last Admin: 11/14/19 11:25 Dose: 5,000 unit Vancomycin HCl 1,000 mg/ (Dextrose) 250 mls @ 200 mls/hr IVPB Q24H MELVIN; Protocol Piperacillin Sod/Tazobactam (Sod 2.25 gm/ Dextrose) 50 mls @ 100 mls/hr IVPB Q6H-IV MELVIN; Protocol Vancomycin HCl (Vancomycin (Pre-Docked)) 1,000 mg in 250 mls @ 166.667 mls/hr IVPB ONCE ONE Stop: 11/14/19 23:29 Piperacillin Sod/Tazobactam (Sod 2.25 gm/ Dextrose) 50 mls @ 100 mls/hr IVPB Q6H-IV MELVIN; Protocol Stop: 11/15/19 03:29 Last Admin: 11/14/19 10:46 Dose: 100 mls/hr Heparin Sodium/Dextrose (Heparin Infusion -) 25,000 units in 500 mls @ 20 mls/ hr IVPB TITR MELVIN; Protocol Last Titration: 11/14/19 11:24 Dose: 1,150 units/hr, 23 mls/hr Memantine (Namenda -) 5 mg PO BID [facility] Last Admin: 11/14/19 10:46 Dose: 5 mg ASSESSMENT AND PLAN: Altered Mental Status Lactic Acidosis r/o Sepsis r/o Seizures Acute Kidney Injury +Troponins likely Demand Ischemia Aortic Stenosis HTN Hyperlipidemia Dementia - on empiric antibiotics - f/u cultures - IVF - trend cardiac enzymes, lactate - echocardiogram - neuro eval - consider EEG - aspiration precautions - no indication for ICU monitoring at this time, please call back if clinical status changes
--- NOTE | 2019-11-14 15:11 | EKG ---
Test Reason : Blood Pressure : / mmHG Vent. Rate : 091 BPM Atrial Rate : 091 BPM P-R Int : 156 ms QRS Dur : 150 ms QT Int : 420 ms P-R-T Axes : 013 -30 096 degrees QTc Int : 516 ms NORMAL SINUS RHYTHM LEFT AXIS DEVIATION LEFT BUNDLE BRANCH BLOCK ABNORMAL ECG WHEN COMPARED WITH ECG OF 28-JAN-2018 14:30, PREMATURE ATRIAL COMPLEXES ARE NO LONGER PRESENT Confirmed by SHASHANK GODWIN, GAURANG ([id number]) on 11/14/2019 3:10:35 PM Referred By: Confirmed By:GAURANG ENCARNACION MD
--- NOTE | 2019-11-14 15:56 | ECHO ---
Name: RACHEL AMOS Exam:Adult Echocardiogram Study Date: 11/14/2019 01:47 PM Age: 78 yrs Height: 65 in Weight: 155 lb BSA: 1.8 m2 MMode/2D Measurements & Calculations IVSd: 1.2 cm Ao root diam: 2.3 cm LVIDd: 3.9 cm LA dimension: 4.7 cm LVIDs: 3.0 cm ACS: 1.4 cm LVPWd: 1.4 cm EDV(Teich): 65.8 ml LVOT diam: 1.9 cm ESV(Teich): 34.4 ml RV S Bryan: 15.6 cm/sec Doppler Measurements & Calculations MV E max bryan: 72.7 cm/sec MVA(VTI): 1.7 cm2 MV A max bryan: 111.1 cm/sec MV V2 max: 110.4 cm/sec MV E/A: 0.65 MV max P.9 mmHg MV dec time: 0.24 sec MV V2 mean: 62.0 cm/sec MV mean P.8 mmHg MV V2 VTI: 27.1 cm Ao V2 max: 199.3 cm/sec LV V1 max P.5 mmHg Ao max P.4 mmHg LV V1 mean P.6 mmHg Ao V2 mean: 127.4 cm/sec LV V1 max: 93.8 cm/sec Ao mean P.2 mmHg LV V1 mean: 59.6 cm/sec Ao V2 VTI: 31.8 cm LV V1 VTI: 16.6 cm DA(I,D): 1.4 cm2 DA(V,D): 1.3 cm2 SV(LVOT): 46.0 ml TR max bryan: 211.7 cm/sec TR max P.8 mmHg Med Peak E' Bryan: 5.6 cm/sec Med E/e': 13.0 Lat Peak E' Bryan: 4.2 cm/sec Lat E/e': 17.4 Procedure A complete two-dimensional transthoracic echocardiogram was performed (2D, M-mode, Doppler and color flow Doppler). The study was technically difficult with many images being suboptimal in quality. Left Ventricle The left ventricular size, thickness and function are normal. The left ventricular ejection fraction is normal. Ejection Fraction = 55-60%. No regional wall motion abnormalities noted. Right Ventricle The right ventricle is normal in size and function. Atria Normal left and right atrial size and function. Mitral Valve There is no mitral regurgitation noted. Tricuspid Valve No tricuspid regurgitation. Aortic Valve Mild valvular aortic stenosis. No aortic regurgitation is present. Pulmonic Valve There is no pulmonic valvular regurgitation. Great Vessels The aortic root is normal size. Pericardium/Pleura There is no pericardial effusion. Interpretation Summary The study was technically difficult with many images being suboptimal in quality. The left ventricular size, thickness and function are normal The right ventricle is normal in size and function. Mild valvular aortic stenosis. MD Ronald Yen 11/14/2019 03:56 PM
--- NOTE | 2019-11-14 17:34 | PN ---
Progress Note (short form) - Note Progress Note: ID consult dictated imp/reccd 78 yo man admitted from [place] with episode of unresponsiveness-now alert sent to er for evaluatin found to have leukocytosis, lactic acidosis and positive troponins no signs pneumonia UA is negative +blood cultures for gpc clusters +right ellbow erythema and warmth- painful to move gram postive bacteremia-r/o endocarditis with underlying continue vancomycin/switch to ceftriaxone suspected source skin- cellulitis, ?early olecronon bursitis will d/w cardiology echo repeat blood cultures f/u labs and cultures esr/crp +troponins- NSTEMI- per cardiology VIJAY- Problem List - Problems (1) Sepsis Code(s): A41.9 - SEPSIS, UNSPECIFIED ORGANISM (2) Gram-positive bacteremia Code(s): R78.81 - BACTEREMIA (3) NSTEMI (non-ST elevated myocardial infarction) Code(s): I21.4 - NON-ST ELEVATION (NSTEMI) MYOCARDIAL INFARCTION (4) VIJAY (acute kidney injury) Code(s): N17.9 - ACUTE KIDNEY FAILURE, UNSPECIFIED
[2019-11-14] MEDS ORDERED: CEFTRIAXONE 2 GM in DEXTROSE 5%-WATER 100 ML IVPB SCH (18:15)
[2019-11-14] MEDS ORDERED: DEXTROSE 5%-WATER 100 ML IVPB ONE (19:02)
--- NOTE | 2019-11-14 19:15 | CONS ---
INFECTIOUS DISEASE CONSULTATION DATE OF CONSULTATION: DATE OF DICTATION: 11/14/2019 HISTORY OF PRESENT ILLNESS: This is a 78-year-old man admitted from the intermediate with a past medical history of hypertension and dementia. He was brought into the ER for change in mental status. He apparently was noted to be unresponsive for about 15 minutes, after which he became more responsive. There was no seizure-like activity. He was brought to the ER where he was noted to have a positive troponin, a lactic acid of 4 and a white count of 19,000. He was started on vancomycin and Zosyn and I am asked to see for further evaluation. The patient is currently awake. Due to his dementia he is a poor historian. He has no complaints of chest pain. PAST MEDICAL HISTORY: Notable for dementia, aortic stenosis, hypertension, diabetes. SOCIAL HISTORY: No history of cigarette or substance use. He resides in a intermediate. ALLERGIES: He has no known drug allergies. MEDICATIONS: Include insulin, Aricept, lisinopril and Namenda. REVIEW OF SYSTEMS: Not obtainable due to his dementia. He is awake. PHYSICAL EXAMINATION: Vital Signs: Temperature is 98.1, pulse 96. He does not have fever. His blood pressure is 110/60, respiratory rate is 22, he is saturating 99% on 2 L. HEENT: Normocephalic. Eyes are anicteric. He has no conjunctival hemorrhages. Neck: Supple. Lungs: Clear to auscultation. Heart: Regular rate and rhythm. Abdomen: Soft, nontender. Extremities: Notable for erythema surrounding his right elbow on the inner aspect extending to his olecranon bursa. LABORATORY DATA: Notable for a white count of 20.7, hemoglobin 12.9, platelets are 153. BUN at 40 and creatinine at 1.7 are elevated. His repeat lactic acid was 2.8. His troponin is 2. Hemoglobin A1C is 6.9. Blood cultures are growing gram-positive cocci in clusters in 4/4 bottles. He is currently on vancomycin and Zosyn. Chest x-ray is negative for infiltrates. IN SUMMARY, this is a 78-year-old man with history of hypertension and dementia who presents with change in mental status that appears resolved. He has gram-positive bacteremia and sepsis. He has positive troponins as well. He is currently being treated medically for his non-ST segment myocardial infarction by Cardiology. Will continue vancomycin which was started last night, adjusting it for acute kidney injury. Will add ceftriaxone to cover for possible UTI as he has nitrite-positive UA with 200 white cells. We will repeat blood cultures in the morning, make further recommendations at that time. Echocardiogram has been completed and has been read as technically difficult. Will discuss with Cardiology. Will examine further culture results, whether he needs a repeat echocardiogram. Will obtain a sedimentation rate and CRP as well. Will need to reevaluate the arm to see if orthopedic evaluation is needed. Further recommendations to follow. TE COSTA M.D. [id number]
[2019-11-14] MEDS ORDERED: DEXTROSE 5%-0.45% SALINE 1,000 ML IV SCH (20:30)
[2019-11-14] MEDS ORDERED: PT OWN MED DRAWER 7, Y5N ONE (21:51)
[2019-11-14] MEDS ORDERED: VANCOMYCIN 1 GRAM (PRE-DOCKED) 1,000 MG/250 ML BAG IVPB ONE (22:00)
[2019-11-14] MEDS ORDERED: VANCOMYCIN 1,000 MG in DEXTROSE 5%-WATER - 250 ML IVPB SCH (22:00)
[2019-11-14] MEDS ORDERED: VANCOMYCIN 1 GRAM (PRE-DOCKED) 1,000 MG/250 ML BAG IVPB SCH (22:00)
[2019-11-14] MEDS: ATORVASTATIN CA 10 MG TABLET (FP) PO SCH (22:03)
--- NOTE | 2019-11-14 22:12 | CONSULT ---
Consult - text type - Consultation Consultation Note: NEUROLOGY CONSULTATION is greatly appreciated: Events reviewed. ID and cardiology consultations read and appreciated. History obtained from the medical record. This 78 yo man is a [facility] resident with h/o HTN, DM and Dementia. On Donepezil (10 mg); Memantine (5 mg BID), insulins and Lisinopril. Admitted after a 15 min episode of staring and unresponsiveness. CT of head (reviewed) shows severe, diffuse atrophy, ex vacuo hydrocephalus and diffuse microvasclar changes. WBC= 20 K with lactic acidosis and Gram + cocci in the blood. Presumed source is elbow cellulitis Now on ceftriaxone and vancomicin. + Troponin and possible NSTEMI SAM: Neck supple. Neg Kernig's. Elbow cellulitis. In 2 pt restraints. NEURO: Resting with eye's closed. Opens eyes to gentle shaking. No speech. Follows no commands Blinks to threat all rousseau ++ Glabella, snout, suck, root, grasps (symmetrical) Withdraws all 4's briskly to touch, pinch Reduced LE reflexes IMP: Severe, B/L cerebral dysfunction (OMS, Chronic features) most c/w Alzheimer 's disease. Worsened by Toxic-metabolic Encephalopathy- Sepsis SUGGEST: Continue antibiotics and hydration. Agree with D/C donepezil due to increaed risk of bradyarrythmia Also doubt efficacy of continued Memantine. Observe for seizure activity Check B12, TSH, RPR. Thank you very much, Tawanda Vieira MD
[2019-11-15] MEDS: ACETAMINOPHEN 650 MG SUPP.RECT PR PRN ×3 (06:32→20:35)
[2019-11-15 06:38] LABS: HEMATOCRIT 37.9 % (35.4-49); HEMOGLOBIN 12.5 GM/dL (11.7-16.9); MCH 28.9 pg (25.7-33.7); MCHC 32.9 g/dl (32.0-35.9); MEAN CELL VOLUME 87.7 fl (80-96); MEAN PLT VOLUME 11.6 fl (7.5-11.1); PLATELET COUNT 149 K/MM3 (134-434); RBC 4.32 M/mm3 (4.00-5.60); RDW 14.5 % (11.9-15.9); WHITE BLOOD COUNT 20.2 K/mm3 (4.0-10.0)
[2019-11-15 07:23] LABS: ALBUMIN 2.3 g/dl (3.4-5.0); BLOOD UREA NITROGEN 74.4 mg/dL (7-18); CALCIUM 8.1 mg/dL (8.5-10.1); CREATININE 3.4 mg/dL (0.55-1.3); POTASSIUM 3.5 mmol/L (3.5-5.1); TOT PROT 6.7 g/dl (6.4-8.2)
--- NOTE | 2019-11-15 08:23 | PN ---
Progress Note (short form) - Note Progress Note: Lethargic but arousable. Not able to follow commands or answer questions. No acute events overnight. Intake & Output 11/12/19 11/13/19 11/14/19 11/15/19 23:59 23:59 23:59 23:59 Intake Total 334 336 Output Total 500 Balance -166 336 Weight 155 lb 155 lb Last Vital Signs Temp Pulse Resp BP Pulse Ox 101 F H 95 H 18 100/53 L 93 L 11/15/19 06:48 11/15/19 06:48 11/15/19 06:48 11/15/19 06:48 11/14/19 21:20 Active Medications Acetaminophen (Tylenol Suppository -) 650 mg MN Q6H PRN PRN Reason: FEVER Last Admin: 11/15/19 06:32 Dose: 650 mg Aspirin (Asa -) 81 mg PO DAILY MELVIN Atorvastatin Calcium (Lipitor -) 10 mg PO HS [facility] Last Admin: 11/14/19 22:03 Dose: Not Given Vancomycin HCl (Vancomycin (Pre-Docked)) 1,000 mg in 250 mls @ 166.667 mls/hr IVPB Q24H MELVIN; Protocol Last Admin: 11/14/19 22:04 Dose: 166.667 mls/hr Ceftriaxone Sodium 2 gm/ (Dextrose) 100 mls @ 200 mls/hr IVPB DAILY MELVIN; Protocol Last Admin: 11/14/19 19:15 Dose: 200 mls/hr Dextrose/Sodium Chloride (D5-1/2ns -) 1,000 mls @ 42 mls/hr IV ASDIR MELVIN Last Admin: 11/14/19 21:00 Dose: 42 mls/hr Memantine (Namenda -) 5 mg PO BID MELVIN Last Admin: 11/14/19 22:04 Dose: Not Given Gen: Lethargic, confused Heart: RRR Lung: few scattered rhonchi, decreased breath sounds at the bases Abd: soft, nontender Ext: no edema Laboratory Results - last 24 hr 11/14/19 11/14/19 11/14/19 05:32 09:03 09:50 WBC RBC Hgb Hct MCV MCH MCHC RDW Plt Count MPV Neutrophils % (Manual) 71.6 Band Neutrophils % 15.7 Lymphocytes % (Manual) 3.9 L D Monocytes % (Manual) 8 D Eosinophils % (Manual) 0.0 Basophils % (Manual) 0.0 Myelocytes % (Man) 0 Promyelocytes % (Man) 0 Blast Cells % (Manual) 0 Nucleated RBC % 0 Metamyelocytes 1 Hypochromia 0 Platelet Estimate Decreased Polychromasia 0 Poikilocytosis 0 Anisocytosis 0 Microcytosis 0 Macrocytosis 0 ESR PTT (Actin FS) 34.7 Sodium Potassium Chloride Carbon Dioxide Anion Gap BUN Creatinine Est GFR (CKD-EPI)AfAm Est GFR (CKD-EPI)NonAf Random Glucose Calcium Total Bilirubin AST ALT Alkaline Phosphatase Troponin I 1.85 H* C-Reactive Protein Total Protein Albumin 11/14/19 11/15/19 11/15/19 20:20 05:40 05:40 WBC 20.2 H RBC 4.32 Hgb 12.5 Hct 37.9 MCV 87.7 MCH 28.9 MCHC 32.9 RDW 14.5 Plt Count 149 MPV 11.6 H Neutrophils % (Manual) Band Neutrophils % Lymphocytes % (Manual) Monocytes % (Manual) Eosinophils % (Manual) Basophils % (Manual) Myelocytes % (Man) Promyelocytes % (Man) Blast Cells % (Manual) Nucleated RBC % Metamyelocytes Hypochromia Platelet Estimate Polychromasia Poikilocytosis Anisocytosis Microcytosis Macrocytosis ESR PTT (Actin FS) 41.4 H Sodium 142 Potassium 3.5 Chloride 108 H Carbon Dioxide 26 Anion Gap 9 BUN 74.4 H Creatinine 3.4 H Est GFR (CKD-EPI)AfAm 18.81 Est GFR (CKD-EPI)NonAf 16.23 Random Glucose 241 H Calcium 8.1 L Total Bilirubin 1.0 AST 49 H ALT 42 Alkaline Phosphatase 113 Troponin I C-Reactive Protein 33.4 H Total Protein 6.7 Albumin 2.3 L 11/15/19 05:40 WBC RBC Hgb Hct MCV MCH MCHC RDW Plt Count MPV Neutrophils % (Manual) Band Neutrophils % Lymphocytes % (Manual) Monocytes % (Manual) Eosinophils % (Manual) Basophils % (Manual) Myelocytes % (Man) Promyelocytes % (Man) Blast Cells % (Manual) Nucleated RBC % Metamyelocytes Hypochromia Platelet Estimate Polychromasia Poikilocytosis Anisocytosis Microcytosis Macrocytosis ESR 87 H PTT (Actin FS) Sodium Potassium Chloride Carbon Dioxide Anion Gap BUN Creatinine Est GFR (CKD-EPI)AfAm Est GFR (CKD-EPI)NonAf Random Glucose Calcium Total Bilirubin AST ALT Alkaline Phosphatase Troponin I C-Reactive Protein Total Protein Albumin ASSESSMENT AND PLAN: Altered Mental Status Lactic Acidosis r/o Sepsis r/o Seizures Acute Kidney Injury +Troponins likely Demand Ischemia Aortic Stenosis HTN Hyperlipidemia Dementia - Empiric antibiotics - f/u cultures - IVF - echocardiogram - Seizure precautions - Aspiration precautions Dr Martin
--- NOTE | 2019-11-15 09:02 | PN ---
Progress Note, Physician - Current Medication List Current Medications: Active Medications Acetaminophen (Tylenol Suppository -) 650 mg AR Q6H PRN PRN Reason: FEVER Last Admin: 11/15/19 06:32 Dose: 650 mg Aspirin (Asa -) 81 mg PO DAILY MELVIN Atorvastatin Calcium (Lipitor -) 10 mg PO HS [facility] Last Admin: 11/14/19 22:03 Dose: Not Given Vancomycin HCl (Vancomycin (Pre-Docked)) 1,000 mg in 250 mls @ 166.667 mls/hr IVPB Q24H MELVIN; Protocol Last Admin: 11/14/19 22:04 Dose: 166.667 mls/hr Ceftriaxone Sodium 2 gm/ (Dextrose) 100 mls @ 200 mls/hr IVPB DAILY [facility]; Protocol Last Admin: 11/14/19 19:15 Dose: 200 mls/hr Dextrose/Sodium Chloride (D5-1/2ns -) 1,000 mls @ 42 mls/hr IV ASDIR MELVIN Last Admin: 11/14/19 21:00 Dose: 42 mls/hr Memantine (Namenda -) 5 mg PO BID MELVIN Last Admin: 11/14/19 22:04 Dose: Not Given - Objective Vital Signs: Vital Signs Temperature 101 F H 11/15/19 06:48 Pulse Rate 95 H 11/15/19 06:48 Respiratory Rate 18 11/15/19 06:48 Blood Pressure 100/53 L 11/15/19 06:48 O2 Sat by Pulse Oximetry (%) 93 L 11/14/19 21:20 Cardiovascular: Yes: S1, S2 Respiratory: Yes: Regular, CTA Bilaterally Gastrointestinal: Yes: Normal Bowel Sounds, Soft Neurological: Yes: Lethargy, Weakness Labs: CBC, BMP 11/15/19 05:40 11/15/19 05:40 INR, PTT INR 1.31 (0.83-1.09) H 11/13/19 21:30 Assessment/Plan - Problems (1) VIJAY (acute kidney injury) Assessment/Plan: -BUN/Cr 40.4/1.7 -monitor renal function daily -Renal consult Code(s): N17.9 - ACUTE KIDNEY FAILURE, UNSPECIFIED (2) NSTEMI (non-ST elevated myocardial infarction) Assessment/Plan: -Cardiology consult--Demand Ischemia -Troponin 2.61~2.07~1.85 -Tele monitoring -EKG shows NSR with LBBB -Heparin drip infusing -received Plavix 300mg x 1, Atorvastatin 80mg x 1, Aspirin 324mg x 1 in ER -Atorvastatin -Echocardiogram -Aspirin Code(s): I21.4 - NON-ST ELEVATION (NSTEMI) MYOCARDIAL INFARCTION (3) Sepsis Assessment/Plan: -ID consult -LA 4.0~2.8 -Leukocytosis WBC 20.7 -afebrile -CXR shows no acute pathology -Urine Legionella negative -UC and BC results Microbiology 11/14/19 00:45 Urine - Urine Clean Catch Urine Culture - Preliminary Staphylococcus Latex Coag Pos 11/13/19 21:30 Blood - Peripheral Venous Blood Culture - Preliminary Presumptive Mrsa (Pbp2a Pos) 11/13/19 21:30 Blood - Peripheral Venous Blood Culture - Preliminary Presumptive Mrsa (Pbp2a Pos) 11/14/19 00:45 Urine For Antigen Detection Legionella Antigen - Final 11/14/19 00:45 Urine For Antigen Detection Streptococcus pneumoniae Antigen (M - Final -ON VANCO -tylenol for temp >100F -ICU consult Code(s): A41.9 - SEPSIS, UNSPECIFIED ORGANISM (4) Dementia Assessment/Plan: -Neurology consult -Head CT scan shows moderate atrophy, no gross evidence of a focal intracranial lesion or hemorrhage -Namenda Code(s): F03.90 - UNSPECIFIED DEMENTIA WITHOUT BEHAVIORAL DISTURBANCE (5) HTN (hypertension) Assessment/Plan: -low Na diet Code(s): I10 - ESSENTIAL (PRIMARY) HYPERTENSION
[2019-11-15] MEDS ORDERED: PT OWN MED DRAWER 7, Y5N ONE ×3 (09:06→15:42)
[2019-11-15] MEDS ORDERED: DEXTROSE 5%-WATER 100 ML IVPB ONE (09:06)
--- NOTE | 2019-11-15 09:30 | CONSULT ---
Consultation: REQUESTING PROVIDER: Dr Ellis CONSULT REQUEST: VIJAY HISTORY OF PRESENT ILLNESS: 78 y/o male with PMH of HTN, dementia who presented from [facility] due to an episode of unresponsiveness-patient had an episode of that lasted around 15 minutes where he was staring straight with his eyes open; no shaking activity was noted so he was brought into the ED - imaging was negative; initially when patient arrived his Cr was 1.5-->1.7--3.4 (today) ; patient found to be bacteremic with presumptive MRSA and urine culture growing staph latex coag +; patient started on empiric vanc and ceftriaxone REVIEW OF SYSTEMS: UNABLE TO OBTAIN PATIENT IS UNABLE TO ANSWER QUESTIONS DUE TO MENTAL STATUS CONSTITUTIONAL: Absent: fever, chills, diaphoresis, generalized weakness, malaise, loss of appetite, weight change HEENT: Absent: rhinorrhea, nasal congestion, throat pain, throat swelling, difficulty swallowing, mouth swelling, ear pain, eye pain, visual changes CARDIOVASCULAR: Absent: chest pain, syncope, palpitations, irregular heart rate, lightheadedness , peripheral edema RESPIRATORY: Absent: cough, shortness of breath, dyspnea with exertion, orthopnea, wheezing, stridor, hemoptysis GASTROINTESTINAL: Absent: abdominal pain, abdominal distension, nausea, vomiting, diarrhea, constipation, melena, hematochezia GENITOURINARY: Absent: dysuria, frequency, urgency, hesitancy, hematuria, flank pain, genital pain MUSCULOSKELETAL: Absent: myalgia, arthralgia, joint swelling, back pain, neck pain SKIN: Absent: rash, itching, pallor HEMATOLOGIC/IMMUNOLOGIC: Absent: easy bleeding, easy bruising, lymphadenopathy, frequent infections ENDOCRINE: Absent: unexplained weight gain, unexplained weight loss, heat intolerance, cold intolerance NEUROLOGIC: Absent: headache, focal weakness or paresthesias, dizziness, unsteady gait, seizure, mental status changes, bladder or bowel incontinence PSYCHIATRIC: Absent: anxiety, depression, suicidal or homicidal ideation, hallucinations. PHYSICAL EXAMINATION Vital Signs - 24 hr 11/14/19 11/14/19 11/14/19 10:00 12:47 15:30 Temperature 98.9 F 98.1 F Pulse Rate Pulse Rate [ 99 H 93 H 96 H Radial] Respiratory 22 H 22 H 22 H Rate Blood Pressure Blood Pressure 120/67 121/80 110/60 [Left Arm] O2 Sat by Pulse 100 99 99 Oximetry (%) 11/14/19 11/14/19 11/14/19 18:00 21:00 21:07 Temperature 99.2 F 99 F 99.2 F Pulse Rate 98 H 112 H 98 H Pulse Rate [ Radial] Respiratory 18 18 18 Rate Blood Pressure 144/66 126/70 144/66 Blood Pressure [Left Arm] O2 Sat by Pulse 97 Oximetry (%) 11/14/19 11/15/19 11/15/19 21:20 01:00 06:48 Temperature 98.1 F 101 F H Pulse Rate 104 H 95 H Pulse Rate [ Radial] Respiratory 18 18 18 Rate Blood Pressure 110/56 L 100/53 L Blood Pressure [Left Arm] O2 Sat by Pulse 93 L Oximetry (%) GENERAL: lethargic; yet arousable to sternal rub ; NAD. EYES: PEERLA; EOMI: no scleral icterus NECK: no JVD; no lymphadenopathy LUNGS: CTA B/L; no rales, rhonchi or wheezing HEART: Regular rate and rhythm, normal S1 and S2 without murmur, rub or gallop. ABDOMEN: Soft, NT/ND +BS in all 4 quadrants MUSCULOSKELETAL: Normal range of motion at all joints. No bony deformities or tenderness. No CVA tenderness. EXTRREMITIES: warm; well-perfused no clubbing/cyanosis or edema NEUROLOGICAL: unable to obtain due to mental status SKIN: Warm, dry, normal turgor, no rashes or lesions noted. Laboratory Results - last 24 hr 11/14/19 11/14/19 11/14/19 05:32 09:03 09:50 WBC RBC Hgb Hct MCV MCH MCHC RDW Plt Count MPV Neutrophils % (Manual) 71.6 Band Neutrophils % 15.7 Lymphocytes % (Manual) 3.9 L D Monocytes % (Manual) 8 D Eosinophils % (Manual) 0.0 Basophils % (Manual) 0.0 Myelocytes % (Man) 0 Promyelocytes % (Man) 0 Blast Cells % (Manual) 0 Nucleated RBC % 0 Metamyelocytes 1 Hypochromia 0 Platelet Estimate Decreased Polychromasia 0 Poikilocytosis 0 Anisocytosis 0 Microcytosis 0 Macrocytosis 0 ESR PTT (Actin FS) 34.7 Sodium Potassium Chloride Carbon Dioxide Anion Gap BUN Creatinine Est GFR (CKD-EPI)AfAm Est GFR (CKD-EPI)NonAf Random Glucose Calcium Total Bilirubin AST ALT Alkaline Phosphatase Troponin I 1.85 H* C-Reactive Protein Total Protein Albumin 11/14/19 11/15/19 11/15/19 20:20 05:40 05:40 WBC 20.2 H RBC 4.32 Hgb 12.5 Hct 37.9 MCV 87.7 MCH 28.9 MCHC 32.9 RDW 14.5 Plt Count 149 MPV 11.6 H Neutrophils % (Manual) Band Neutrophils % Lymphocytes % (Manual) Monocytes % (Manual) Eosinophils % (Manual) Basophils % (Manual) Myelocytes % (Man) Promyelocytes % (Man) Blast Cells % (Manual) Nucleated RBC % Metamyelocytes Hypochromia Platelet Estimate Polychromasia Poikilocytosis Anisocytosis Microcytosis Macrocytosis ESR PTT (Actin FS) 41.4 H Sodium 142 Potassium 3.5 Chloride 108 H Carbon Dioxide 26 Anion Gap 9 BUN 74.4 H Creatinine 3.4 H Est GFR (CKD-EPI)AfAm 18.81 Est GFR (CKD-EPI)NonAf 16.23 Random Glucose 241 H Calcium 8.1 L Total Bilirubin 1.0 AST 49 H ALT 42 Alkaline Phosphatase 113 Troponin I C-Reactive Protein 33.4 H Total Protein 6.7 Albumin 2.3 L 11/15/19 05:40 WBC RBC Hgb Hct MCV MCH MCHC RDW Plt Count MPV Neutrophils % (Manual) Band Neutrophils % Lymphocytes % (Manual) Monocytes % (Manual) Eosinophils % (Manual) Basophils % (Manual) Myelocytes % (Man) Promyelocytes % (Man) Blast Cells % (Manual) Nucleated RBC % Metamyelocytes Hypochromia Platelet Estimate Polychromasia Poikilocytosis Anisocytosis Microcytosis Macrocytosis ESR 87 H PTT (Actin FS) Sodium Potassium Chloride Carbon Dioxide Anion Gap BUN Creatinine Est GFR (CKD-EPI)AfAm Est GFR (CKD-EPI)NonAf Random Glucose Calcium Total Bilirubin AST ALT Alkaline Phosphatase Troponin I C-Reactive Protein Total Protein Albumin Active Medications Generic Name Dose Route Start Last Admin Trade Name Freq PRN Reason Stop Dose Admin Acetaminophen 650 mg 11/15/19 06:23 11/15/19 06:32 Tylenol Suppository - IN 650 mg Q6H PRN Administration FEVER Aspirin 81 mg 11/15/19 10:00 Asa - PO DAILY MELVIN Atorvastatin Calcium 10 mg 11/14/19 22:00 11/14/19 22:03 Lipitor - PO Not Given HS MELVIN Vancomycin HCl 1,000 mg in 250 mls @ 166.667 mls/hr 11/14/19 22:00 11/14/19 22:04 Vancomycin (Pre-Docked) IVPB 166.667 mls/hr Q24H MELVIN Administration Protocol Dextrose/Sodium Chloride 1,000 mls @ 42 mls/hr 11/14/19 20:30 11/14/19 21:00 D5-1/2ns - IV 42 mls/hr ASDIR MELVIN Administration Memantine 5 mg 11/14/19 10:00 11/14/19 22:04 Namenda - PO Not Given BID MELVIN ASSESSMENT/PLAN: 78 y/o male with PMH of HTN, dementia who presented from [facility] due to an episode of unresponsiveness-patient had an episode of that lasted around 15 minutes where he was staring straight with his eyes open found to have VIJAY #VIJAY #bacteremia #HTN f/u renal US urine studies pending IV fluids repeat BMP in AM f/u echo avoid NSAIDS; nephrotoxic drugs Dispo: We will continue to follow the patient. Thank you for this consultative opportunity. Problem List - Problems (1) VIJAY (acute kidney injury) Code(s): N17.9 - ACUTE KIDNEY FAILURE, UNSPECIFIED (2) Gram-positive bacteremia Code(s): R78.81 - BACTEREMIA (3) NSTEMI (non-ST elevated myocardial infarction) Code(s): I21.4 - NON-ST ELEVATION (NSTEMI) MYOCARDIAL INFARCTION (4) UTI (urinary tract infection) Code(s): N39.0 - URINARY TRACT INFECTION, SITE NOT SPECIFIED Visit type - Emergency Visit Emergency Visit: Yes ED Registration Date: 11/13/19 Care time: The patient presented to the Emergency Department on the above date and was hospitalized for further evaluation of their emergent condition. - New Patient This patient is new to me today: Yes Date on this admission: 11/15/19 - Critical Care Critical Care patient: No ATTENDING PHYSICIAN STATEMENT I saw and evaluated the patient. I reviewed the resident's note and discussed the case with the resident. I agree with the resident's findings and plan as documented. SUBJECTIVE: OBJECTIVE: ASSESSMENT AND PLAN:
--- NOTE | 2019-11-15 10:34 | PN ---
Progress Note (short form) - Note Progress Note: MRSA bacteremia he is lethargic creatinine now 3.4 unable to pass telles ultrasound pending Vital Signs Period Temp Pulse Resp BP Sys/[place] Pulse Ox Last 24 Hr 98.1 F-101 F 67-112 18-22 100-144/53-80 93-99 cor-rrr lungs decreased bs at bases abd soft,nt no palpable bladder less erythemaof the right arm ext no edema echo -techinicallly difficult with mild aortic stenosis CBC, BMP 11/15/19 05:40 11/15/19 05:40 Microbiology 11/14/19 00:45 Urine - Urine Clean Catch Urine Culture - Preliminary Staphylococcus Latex Coag Pos 11/13/19 21:30 Blood - Peripheral Venous Blood Culture - Preliminary Presumptive Mrsa (Pbp2a Pos) 11/13/19 21:30 Blood - Peripheral Venous Blood Culture - Preliminary Presumptive Mrsa (Pbp2a Pos) 11/14/19 00:45 Urine For Antigen Detection Legionella Antigen - Final 11/14/19 00:45 Urine For Antigen Detection Streptococcus pneumoniae Antigen (M - Final crp33.3 a/p MRSA bacteremia-r/o endocarditis with underlying check vancomycin trough before redosing with renal failure-level ordered add ceftarolilne echo noted repeat blood cultures sent f/u labs and cultures esr/crp noted +troponins- NSTEMI- per cardiology VIJAY- renal /bladder sono pending, renal evalluation, ivf per renal Problem List - Problems (1) Sepsis Code(s): A41.9 - SEPSIS, UNSPECIFIED ORGANISM (2) Gram-positive bacteremia Code(s): R78.81 - BACTEREMIA (3) NSTEMI (non-ST elevated myocardial infarction) Code(s): I21.4 - NON-ST ELEVATION (NSTEMI) MYOCARDIAL INFARCTION (4) VIJAY (acute kidney injury) Code(s): N17.9 - ACUTE KIDNEY FAILURE, UNSPECIFIED
--- NOTE | 2019-11-15 10:44 | CONSULT ---
Admitting History and Physical - Primary Care Physician PCP: Niyah Orr - Admission History of Present Illness: 78 yo man is a [facility] resident with h/o HTN, DM and Dementia, admitted after a 15 min episode of staring and unresponsiveness. CT of head (reviewed) shows severe, diffuse atrophy, ex vacuo hydrocephalus and diffuse microvasclar changes. Per [place] records, pt was on a reg diet, thion liquids, not easting last couple of days. Note 11/13/2019-"Pt voiced he feels depressed but does not know the reason " WBC= 20 K with lactic acidosis and Gram + cocci in the blood. Presumed source is elbow cellulitis Neuro IMP: Severe, B/L cerebral dysfunction (OMS, Chronic features) most c/w Alzheimer's disease. 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 Cardiovascular: Yes: Aortic Stenosis, HTN Psych: Yes: Other Endocrine: Yes: Diabetes Mellitus - Smoking History Smoking history: Never smoked - Alcohol/Substance Use Hx Alcohol Use: No History of Substance Use: reports: None - Social History ADL: Support Services History of Recent Travel: No History - Admission Reason For Visit: ACUTE KIDNEY INJURY, SEPSIS - Diagnostics X-ray: Report Reviewed (NAD) CT Scan: Report Reviewed - General Mental Status: Lethargic Attention: Severe Impairment - Hearing Hearing: Normal Speech Evaluation - Communication Primary Language: GREENLAND[place] Communication: Yes: Non-Communicable - Language/Auditory Comprehension Observation: Able to respond to yes/no queries: No - Swallow Evaluation/Bedside Assessment Current Nutritional Intake: NPO Facial Symmetry at Rest: Symmetrical Lingual Movement: Normal (midline, in mouth) Recommendations - Speech Evaluation, Impression/Plan Impression: Seems awake, eyes slightly open, quick shallow breaths, not responding to y/n,directives, non verbal. Per [facility] records, pt was verbal, on reg diet/thin liquid as recent baseline. PO trials not attempted due to aspiration risk. - Dysphagia Impressions/Plan Dysphagia Impressions: Risk of Aspiration, Ongoing Evaluation, Too Lethargic to Assess *Silent aspiration: cannot be R/O at bedside Recommendations: Other (NPO including medication. Meds via IV vs NGT) - Recommendations Diet Consistency: NPO Liquids: NPO
[2019-11-15] MEDS: ASPIRIN 81 MG CHEWABLE TABLETS PO SCH (10:53)
[2019-11-15] MEDS: MEMANTINE HCL 5 MG TABLET (UD) PO SCH ×2 (10:53→22:30)
[2019-11-15] MEDS ORDERED: DEXTROSE 5% IVPB SCH (13:30)
[2019-11-15] MEDS ORDERED: WATER IVPB SCH (13:30)
[2019-11-15] MEDS ORDERED: CEFTAROLINE FOSAMIL ACETATE IVPB SCH (13:30)
--- NOTE | 2019-11-15 14:10 | EKG ---
Test Reason : Blood Pressure : / mmHG Vent. Rate : 093 BPM Atrial Rate : 093 BPM P-R Int : 162 ms QRS Dur : 156 ms QT Int : 422 ms P-R-T Axes : 019 -28 113 degrees QTc Int : 524 ms SINUS RHYTHM WITH PREMATURE ATRIAL COMPLEXES LEFT BUNDLE BRANCH BLOCK ABNORMAL ECG WHEN COMPARED WITH ECG OF 13-NOV-2019 21:57, PREMATURE ATRIAL COMPLEXES ARE NOW PRESENT Confirmed by PARAMJIT REIS MD ([id number]) on 11/15/2019 2:09:56 PM Referred By: Confirmed By:PARAMJIT REIS MD
[2019-11-15] MEDS ORDERED: DEXTROSE 5%-0.45% SALINE 1,000 ML IV SCH (14:27)
--- NOTE | 2019-11-15 16:42 | PN ---
Teaching Attending Note Name of Resident: Stephanie Byrd (Nephrology) ATTENDING PHYSICIAN STATEMENT I saw and evaluated the patient. I reviewed the resident's note and discussed the case with the resident. I agree with the resident's findings and plan as documented. Renal Pt is a 78 year old male with pmhx of htn and dementia who was send in from the [place] for an episode of unresponsiveness. He was found to have worsening renal failure and I was called to evaluate him. He is unable to give history pmhx dementia htn nkda ros unable to asses family hx unable to assess Current Medications Generic Name Dose Route Start Last Admin Trade Name Freq PRN Reason Stop Dose Admin Acetaminophen 650 mg 11/15/19 06:23 11/15/19 12:13 Tylenol Suppository - [place] 650 mg Q6H PRN Administration FEVER Aspirin 81 mg 11/15/19 10:00 11/15/19 10:53 Asa - PO Not Given DAILY MELVIN Atorvastatin Calcium 10 mg 11/14/19 22:00 11/14/19 22:03 Lipitor - PO Not Given HS [facility] Dextrose/Sodium Chloride 1,000 mls @ 75 mls/hr 11/15/19 14:27 11/15/19 14:53 D5-1/2ns - IV 75 mls/hr ASDIR MELVIN Administration Ceftaroline Fosamil 400 mg/ 100 mls @ 200 mls/hr 11/15/19 14:45 Dextrose IVPB BID [facility] Protocol Memantine 5 mg 11/14/19 10:00 11/15/19 10:53 Namenda - PO Not Given BID [facility] Microbiology 11/14/19 00:45 Urine - Urine Clean Catch Urine Culture - Preliminary Staphylococcus Latex Coag Pos 11/13/19 21:30 Blood - Peripheral Venous Blood Culture - Preliminary Presumptive Mrsa (Pbp2a Pos) 11/13/19 21:30 Blood - Peripheral Venous Blood Culture - Preliminary Presumptive Mrsa (Pbp2a Pos) Laboratory Tests 11/13/19 11/13/19 11/14/19 21:30 21:30 00:45 Creatinine 1.5 H Lactic Acid 4.0 H* Urine Nitrite Positive H Ur Random Sodium 11/14/19 11/14/19 11/15/19 03:00 05:32 05:40 Creatinine 1.7 H 3.4 H Lactic Acid 2.8 H* Urine Nitrite Ur Random Sodium 11/15/19 12:45 Creatinine Lactic Acid Urine Nitrite Ur Random Sodium 17 L cardio s1s2 tachy pulm clear GI soft gu incontinance ext neg edema Impression 1. VIJAY 2. lactic acidosis 3. bacteremai 4. sepsis 5. dementia 6. hx htn Plan increase fluids as he appears dehydrated cont abx follow repeat cultures vijay likely in part from pre-renal disease renal ultrasound reviewed
[2019-11-15] MEDS ORDERED: SODIUM CHLORIDE 1,000 ML IV STA (16:45)
[2019-11-15] MEDS: WATER IVPB SCH ×2 (17:28→22:22)
[2019-11-15] MEDS: DEXTROSE 5% IVPB SCH ×2 (17:28→22:22)
[2019-11-15] MEDS: CEFTAROLINE FOSAMIL ACETATE IVPB SCH ×2 (17:28→22:22)
[2019-11-15] MEDS ORDERED: VANCOMYCIN 1 GRAM (PRE-DOCKED) 1,000 MG/250 ML BAG IVPB ONE (17:30)
[2019-11-15] MEDS: DEXTROSE 5%-0.45% SALINE 1,000 ML IV SCH (18:36)
[2019-11-15] MEDS: ATORVASTATIN CA 10 MG TABLET (FP) PO SCH (22:29)
[2019-11-16] MEDS: DEXTROSE 5%-0.45% SALINE 1,000 ML IV SCH ×2 (06:49→18:33)
[2019-11-16 07:19] LABS: BASO % 0.1 % (0-2.0); EOS % 0.1 % (0-4.5); HEMATOCRIT 39.8 % (35.4-49); LYMPH % 4.4 % (8-40); MCH 29.1 pg (25.7-33.7); MCHC 32.6 g/dl (32.0-35.9); MEAN CELL VOLUME 89.3 fl (80-96); MEAN PLT VOLUME 12.7 fl (7.5-11.1); MONO % 9.4 % (3.8-10.2); PLATELET COUNT 143 K/MM3 (134-434); RBC 4.46 M/mm3 (4.00-5.60); WHITE BLOOD COUNT 23.1 K/mm3 (4.0-10.0)
[2019-11-16] MEDS ORDERED: PT OWN MED DRAWER 7, Y5N ONE ×3 (08:41→20:38)
[2019-11-16 08:54] LABS: ALBUMIN 1.8 g/dl (3.4-5.0); BILIRUBIN,TOTAL 0.9 mg/dL (0.2-1); CALCIUM 7.9 mg/dL (8.5-10.1); CREATININE 4.8 mg/dL (0.55-1.3); POTASSIUM 3.9 mmol/L (3.5-5.1); TOT PROT 6.1 g/dl (6.4-8.2)
[2019-11-16 08:59] LABS: BLOOD UREA NITROGEN 108.8 mg/dL (7-18)
[2019-11-16] MEDS: CEFTAROLINE FOSAMIL ACETATE IVPB SCH ×2 (09:20→21:19)
[2019-11-16] MEDS: DEXTROSE 5% IVPB SCH ×2 (09:20→21:19)
[2019-11-16] MEDS: WATER IVPB SCH ×2 (09:20→21:19)
--- NOTE | 2019-11-16 10:41 | PN ---
Progress Note (short form) - Note Progress Note: MRSA bacteremia he is lethargic on iv fluids moans when lower abdomen is palpated required straight cath last night Vital Signs Period Temp Pulse Resp BP Sys/M[place]ica Pulse Ox Last 24 Hr 97.2 F-101.7 F 58-102 16-22 88-128/52-74 97-98 cor-rrr lungs decreased bs at bases abd soft,discomfort when lower abdomen is palpated ext minimal erythema of the left medial arm (was erythematous and painful on admission) no skin breakdown CBC, BMP 11/16/19 06:10 11/16/19 06:10 Microbiology 11/15/19 05:45 Blood - Peripheral Venous Blood Culture - Preliminary Presumptive Mrsa (Pbp2a Pos) 11/15/19 05:40 Blood - Peripheral Venous Blood Culture - Preliminary Pending Organism 11/14/19 00:45 Urine - Urine Clean Catch Urine Culture - Preliminary Staphylococcus Latex Coag Pos 11/13/19 21:30 Blood - Peripheral Venous Blood Culture - Preliminary Presumptive Mrsa (Pbp2a Pos) 11/13/19 21:30 Blood - Peripheral Venous Blood Culture - Preliminary Presumptive Mrsa (Pbp2a Pos) 11/14/19 00:45 Urine For Antigen Detection Legionella Antigen - Final 11/14/19 00:45 Urine For Antigen Detection Streptococcus pneumoniae Antigen (M - Final crp33.3 cpk is 516 vanco trough pending a/p MRSA bacteremia-r/o endocarditis with underlying check vancomycin trough before redosing with renal failure-level ordered and pending ceftaroline added ysterday echo noted repeat blood cultures positive repeat in am f/u labs and cultures esr/crp noted ct scan chest abd/pelvis- r/o abscess +troponins- NSTEMI- per cardiology VIJAY- renal /bladder sono- no obstruction renal evalluation, ivf per renal will place telles catheter Problem List - Problems (1) Sepsis Code(s): A41.9 - SEPSIS, UNSPECIFIED ORGANISM (2) Gram-positive bacteremia Code(s): R78.81 - BACTEREMIA (3) NSTEMI (non-ST elevated myocardial infarction) Code(s): I21.4 - NON-ST ELEVATION (NSTEMI) MYOCARDIAL INFARCTION (4) VIJAY (acute kidney injury) Code(s): N17.9 - ACUTE KIDNEY FAILURE, UNSPECIFIED
[2019-11-16] MEDS: ASPIRIN 81 MG CHEWABLE TABLETS PO SCH (11:10)
[2019-11-16] MEDS: MEMANTINE HCL 5 MG TABLET (UD) PO SCH ×2 (11:10→21:18)
--- NOTE | 2019-11-16 12:40 | PN ---
Progress Note, Physician Chief Complaint: EVENTS AND NOTES REVIEWED NO VERBALLY RESPONDING TO QUESTIONS - Current Medication List Current Medications: Active Medications Acetaminophen (Tylenol Suppository -) 650 mg [place] Q6H PRN PRN Reason: FEVER Last Admin: 11/15/19 20:35 Dose: 650 mg Aspirin (Asa -) 81 mg PO DAILY [facility] Last Admin: 11/16/19 11:10 Dose: Not Given Atorvastatin Calcium (Lipitor -) 10 mg PO HS [facility] Last Admin: 11/15/19 22:29 Dose: Not Given Ceftaroline Fosamil 400 mg/ (Dextrose) 100 mls @ 200 mls/hr IVPB BID [facility]; Protocol Last Admin: 11/16/19 09:20 Dose: 200 mls/hr Dextrose/Sodium Chloride (D5-1/2ns -) 1,000 mls @ 100 mls/hr IV ASDIR [facility] Last Admin: 11/16/19 06:49 Dose: 100 mls/hr Memantine (Namenda -) 5 mg PO BID [facility] Last Admin: 11/16/19 11:10 Dose: Not Given - Objective Vital Signs: Vital Signs Temperature 97.7 F 11/16/19 09:17 Pulse Rate 80 11/16/19 09:17 Respiratory Rate 20 11/16/19 09:17 Blood Pressure 123/56 L 11/16/19 09:17 O2 Sat by Pulse Oximetry (%) 97 11/16/19 09:00 Constitutional: Yes: Moderate Distress Cardiovascular: Yes: Pulse Irregular Respiratory: Yes: Diminished, On Nasal O2 Gastrointestinal: Yes: Soft Genitourinary: Yes: Ford Present Edema: Yes Integumentary: Yes: Rash, Venous Stasis Changes Wound/Incision: Yes: Dressing Dry and Intact ...Motor Strength: LLE, RLE Psychiatric: Yes: Other Labs: CBC, BMP 11/16/19 06:10 11/16/19 06:10 INR, PTT INR 1.31 (0.83-1.09) H 11/13/19 21:30 Problem List - Problems (1) VIJAY (acute kidney injury) Code(s): N17.9 - ACUTE KIDNEY FAILURE, UNSPECIFIED (2) Gram-positive bacteremia Code(s): R78.81 - BACTEREMIA (3) NSTEMI (non-ST elevated myocardial infarction) Code(s): I21.4 - NON-ST ELEVATION (NSTEMI) MYOCARDIAL INFARCTION (4) Pneumonia Code(s): J18.9 - PNEUMONIA, UNSPECIFIED ORGANISM (5) Sepsis Code(s): A41.9 - SEPSIS, UNSPECIFIED ORGANISM (6) UTI (urinary tract infection) Code(s): N39.0 - URINARY TRACT INFECTION, SITE NOT SPECIFIED (7) Aortic stenosis Code(s): I35.0 - NONRHEUMATIC AORTIC (VALVE) STENOSIS (8) Dementia Code(s): F03.90 - UNSPECIFIED DEMENTIA WITHOUT BEHAVIORAL DISTURBANCE (9) HTN (hypertension) Code(s): I10 - ESSENTIAL (PRIMARY) HYPERTENSION Assessment/Plan CHRONICALLY ILL 78 Y/O MALE WITH SEPSIS, RENAL FAILURE, DMENTIA, DM ON IV ABX PER ID WOUND CARE PREVENTION FREQUENT TURNING OPTIMIZE NUTRITION SWALLOW EVAL AND WORKUP IN PROGRESS NPO NEPHROLOGY EVAL ADVANCED DIRECTIVES NEED TO BE DISCUSSED WITH FAMILY PALLIATIVE CARE CONSULT
--- NOTE | 2019-11-16 13:37 | PN ---
Progress Note (short form) - Note Progress Note: RENAL Pt known to me from office visits years ago seen and examined by bedside going for ct scan Last Vital Signs Temp Pulse Resp BP Pulse Ox 97.7 F 80 20 123/56 L 97 11/16/19 09:17 11/16/19 09:17 11/16/19 09:17 11/16/19 09:17 11/16/19 09:00 oral mucosa dry lungs clear cvs s1s2 rrabd soft ext no edema telles in place with cloudy urine neuro poorly responsive CBC, BMP 11/16/19 06:10 11/16/19 06:10 Current Medications Generic Name Dose Route Start Last Admin Trade Name Freq PRN Reason Stop Dose Admin Acetaminophen 650 mg 11/15/19 06:23 11/15/19 20:35 Tylenol Suppository - [place] 650 mg Q6H PRN Administration FEVER Aspirin 81 mg 11/15/19 10:00 11/16/19 11:10 Asa - PO Not Given DAILY MELVIN Atorvastatin Calcium 10 mg 11/14/19 22:00 11/15/19 22:29 Lipitor - PO Not Given HS MELVIN Ceftaroline Fosamil 400 mg/ 100 mls @ 200 mls/hr 11/15/19 14:45 11/16/19 09: 20 Dextrose IVPB 200 mls/hr BID MELVIN Administration Protocol Dextrose/Sodium Chloride 1,000 mls @ 100 mls/hr 11/15/19 16:45 11/16/19 06:49 D5-1/2ns - IV 100 mls/hr ASDIR MELVIN Administration Memantine 5 mg 11/14/19 10:00 11/16/19 11:10 Namenda - PO Not Given BID MELVIN Impression 1. VIJAY on ckd 2. lactic acidosis 3. bacteremia 4. sepsis 5. dementia 6. hx htn 7 volume depletion Plan continue hydration antibiotics per id agree with telles catheter would adjust antibiotics to an egfr of less than 15 MV
[2019-11-16 13:49] LABS: ANISOCYTOSIS 1+; MACROCYTOSIS 0; PLATELET ESTIMATE DECREASED; TEAR DROP CELLS 1+
[2019-11-16] MEDS: PIPERACILLIN/TAZOB 2.25 GM 2.25 GM in DEXTROSE 5%-WATER - 50 ML IVPB SCH ×2 (16:28)
[2019-11-16] MEDS: ATORVASTATIN CA 10 MG TABLET (FP) PO SCH (21:18)
[2019-11-17 07:00] LABS: BASO % 0.1 % (0-2.0); EOS % 0.4 % (0-4.5); HEMOGLOBIN 12.2 GM/dL (11.7-16.9); LYMPH % 4.8 % (8-40); MCH 28.7 pg (25.7-33.7); MCHC 32.2 g/dl (32.0-35.9); MEAN CELL VOLUME 89.3 fl (80-96); MEAN PLT VOLUME 12.6 fl (7.5-11.1); MONO % 8.3 % (3.8-10.2); NEUT % 86.4 % (42.8-82.8); PLATELET COUNT 159 K/MM3 (134-434); RBC 4.26 M/mm3 (4.00-5.60); RDW 14.7 % (11.9-15.9); WHITE BLOOD COUNT 20.9 K/mm3 (4.0-10.0)
[2019-11-17 07:51] LABS: ALBUMIN 1.8 g/dl (3.4-5.0); ALK PHOS 112 U/L (45-117); ANION GAP 12 MMOL/L (8-16); BILIRUBIN,TOTAL 0.8 mg/dL (0.2-1); CALCIUM 7.9 mg/dL (8.5-10.1); CHLORIDE 114 mmol/L (98-107); CO2 21 mmol/L (21-32); CREATININE 5.6 mg/dL (0.55-1.3); GLUCOSE,RANDOM 348 mg/dL (74-106); POTASSIUM 3.8 mmol/L (3.5-5.1); SGOT/AST 24 U/L (15-37); SGPT/ALT 33 U/L (13-61); SODIUM 147 mmol/L (136-145)
[2019-11-17] MEDS ORDERED: PT OWN MED DRAWER 7, Y5N ONE ×2 (08:53→21:00)
[2019-11-17] MEDS: DEXTROSE 5% IVPB SCH ×2 (09:07→21:22)
[2019-11-17] MEDS: CEFTAROLINE FOSAMIL ACETATE IVPB SCH ×2 (09:07→21:22)
[2019-11-17] MEDS: WATER IVPB SCH ×2 (09:07→21:22)
[2019-11-17] MEDS: ASPIRIN 81 MG CHEWABLE TABLETS PO SCH (09:12)
[2019-11-17] MEDS: MEMANTINE HCL 5 MG TABLET (UD) PO SCH ×2 (09:12→21:21)
[2019-11-17 09:52] LABS: ANISOCYTOSIS 1+; MACROCYTOSIS 0; OVALOCYTE 1+; PLATELET ESTIMATE DECREASED; TARGET CELLS 1+
--- NOTE | 2019-11-17 09:58 | PN ---
Progress Note, Physician Chief Complaint: AWAKE ELTHARGIC NON-VERBAL APHASIA WITH DEMENTIA NO NEW EVENTS OVERNIGHT - Current Medication List Current Medications: Active Medications Acetaminophen (Tylenol Suppository -) 650 mg [place] Q6H PRN PRN Reason: FEVER Last Admin: 11/15/19 20:35 Dose: 650 mg Aspirin (Asa -) 81 mg PO DAILY [facility] Last Admin: 11/17/19 09:12 Dose: 81 mg Atorvastatin Calcium (Lipitor -) 10 mg PO HS [facility] Last Admin: 11/16/19 21:18 Dose: Not Given Ceftaroline Fosamil 400 mg/ (Dextrose) 100 mls @ 200 mls/hr IVPB BID [facility]; Protocol Last Admin: 11/17/19 09:07 Dose: 200 mls/hr Dextrose/Sodium Chloride (D5-1/2ns -) 1,000 mls @ 100 mls/hr IV ASDIR [facility] Last Admin: 11/16/19 18:33 Dose: 100 mls/hr Memantine (Namenda -) 5 mg PO BID [facility] Last Admin: 11/17/19 09:12 Dose: 5 mg - Objective Vital Signs: Vital Signs Temperature 98.8 F 11/17/19 08:19 Pulse Rate 65 11/17/19 08:19 Respiratory Rate 18 11/17/19 08:19 Blood Pressure 102/50 L 11/17/19 08:19 O2 Sat by Pulse Oximetry (%) 96 11/16/19 21:00 Constitutional: Yes: Mild Distress Cardiovascular: Yes: Regular Rate and Rhythm Respiratory: Yes: Diminished, On Nasal O2 Gastrointestinal: Yes: Soft Genitourinary: Yes: Bennett Present Musculoskeletal: Yes: Muscle Weakness Edema: No Neurological: Yes: Pre-Existing Deficit, Unresponsive Labs: CBC, BMP 11/17/19 06:20 11/17/19 06:20 INR, PTT INR 1.31 (0.83-1.09) H 11/13/19 21:30 Problem List - Problems (1) VIJAY (acute kidney injury) Code(s): N17.9 - ACUTE KIDNEY FAILURE, UNSPECIFIED (2) Gram-positive bacteremia Code(s): R78.81 - BACTEREMIA (3) NSTEMI (non-ST elevated myocardial infarction) Code(s): I21.4 - NON-ST ELEVATION (NSTEMI) MYOCARDIAL INFARCTION (4) Pneumonia Code(s): J18.9 - PNEUMONIA, UNSPECIFIED ORGANISM (5) Sepsis Code(s): A41.9 - SEPSIS, UNSPECIFIED ORGANISM (6) UTI (urinary tract infection) Code(s): N39.0 - URINARY TRACT INFECTION, SITE NOT SPECIFIED (7) Aortic stenosis Code(s): I35.0 - NONRHEUMATIC AORTIC (VALVE) STENOSIS (8) Dementia Code(s): F03.90 - UNSPECIFIED DEMENTIA WITHOUT BEHAVIORAL DISTURBANCE (9) HTN (hypertension) Code(s): I10 - ESSENTIAL (PRIMARY) HYPERTENSION Assessment/Plan WORSENING RENAL FUNCTION BENNETT HAS A GOOD AMOUNT OF URINE COLLECTED NEPHROLOGY F/U APPRECIATED, ON IVF RENAL ADJUSTMENT OF MEDICATIONS NEED ADVANCED DIRECTIVE AND PALLIATIVE CONSULT FOR THIS PATIENT THE QUALITY OF LIFE IS POOR AND PROGNOSIS WELL. NOT A CANDIDATE FOR HD...
--- NOTE | 2019-11-17 10:02 | PN ---
Progress Note (short form) - Note Progress Note: I SPOKE TO YURY BARKLEY WHO'S NAME IS ON THE CHART. YURY IS A FRIEND AND SAYS THE SISTER AND NEPHEWS LIVE IN THE [place] AND HE DOES NOT HAVE THEIR PHONE NUMBER. I TOLD HIM IT IS IMPORTANT WE SPEAK TO THEM KIZZY ABOUT THE DETERIATING CONDITION OF THIS PATIENT. YURY REPORTS HE HAS NO PHONE # OR ADDRESS OF THE PATIENT'S FAMILY. Problem List - Problems (1) VIJAY (acute kidney injury) Code(s): N17.9 - ACUTE KIDNEY FAILURE, UNSPECIFIED (2) Gram-positive bacteremia Code(s): R78.81 - BACTEREMIA (3) NSTEMI (non-ST elevated myocardial infarction) Code(s): I21.4 - NON-ST ELEVATION (NSTEMI) MYOCARDIAL INFARCTION (4) Pneumonia Code(s): J18.9 - PNEUMONIA, UNSPECIFIED ORGANISM (5) Sepsis Code(s): A41.9 - SEPSIS, UNSPECIFIED ORGANISM (6) UTI (urinary tract infection) Code(s): N39.0 - URINARY TRACT INFECTION, SITE NOT SPECIFIED (7) Aortic stenosis Code(s): I35.0 - NONRHEUMATIC AORTIC (VALVE) STENOSIS (8) Dementia Code(s): F03.90 - UNSPECIFIED DEMENTIA WITHOUT BEHAVIORAL DISTURBANCE (9) HTN (hypertension) Code(s): I10 - ESSENTIAL (PRIMARY) HYPERTENSION
--- NOTE | 2019-11-17 10:37 | PN ---
Progress Note (short form) - Note Progress Note: MRSA bacteremia he is lethargic on iv fluids moans when lower abdomen is palpated- ct scans unrevealing telles in place-good urine output last 24 hours Vital Signs Vital Signs Period Temp Pulse Resp BP Sys/[place] Pulse Ox Last 24 Hr 97.8 F-99.7 F 64-76 16-20 95-144/50-80 96 cor-rrr lungs decreased bs at bases abd- soft,no distention, suprapubic discomfot to palpation +swelling Right arm-diffuse telles CBC, BMP 11/17/19 06:20 11/17/19 06:20 vanco trough pending Microbiology 11/15/19 05:45 Blood - Peripheral Venous Blood Culture - Final S Aureus 11/15/19 05:40 Blood - Peripheral Venous Blood Culture - Preliminary Staphylococcus Latex Coag Pos 11/13/19 21:30 Blood - Peripheral Venous Blood Culture - Final Presumptive Mrsa (Pbp2a Pos) 11/14/19 00:45 Urine - Urine Clean Catch Urine Culture - Final S Aureus 11/13/19 21:30 Blood - Peripheral Venous Blood Culture - Final S Aureus 11/14/19 00:45 Urine For Antigen Detection Legionella Antigen - Final 11/14/19 00:45 Urine For Antigen Detection Streptococcus pneumoniae Antigen (M - Final a/p MRSA bacteremia-r/o endocarditis with underlying vanco giulia is 2 switch to daptomycin q48 hours continue ceftaroline echo noted repeat blood cultures positive repeated today f/u labs and cultures esr/crp noted ct scan chest abd/pelvis- unremarkable duplex right arm please switch iv- d/w RN +troponins- NSTEMI- per cardiology VIJAY- renal /bladder sono- no obstruction renal evaluation, ivf per renal telles catheter in place Problem List - Problems (1) Sepsis Code(s): A41.9 - SEPSIS, UNSPECIFIED ORGANISM (2) Gram-positive bacteremia Code(s): R78.81 - BACTEREMIA (3) NSTEMI (non-ST elevated myocardial infarction) Code(s): I21.4 - NON-ST ELEVATION (NSTEMI) MYOCARDIAL INFARCTION (4) VIJAY (acute kidney injury) Code(s): N17.9 - ACUTE KIDNEY FAILURE, UNSPECIFIED
--- NOTE | 2019-11-17 11:49 | PN ---
Progress Note (short form) - Note Progress Note: RENAL not responding in 2499 out 1949 Last Vital Signs Temp Pulse Resp BP Pulse Ox 98.8 F 65 18 102/50 L 95 11/17/19 08:19 11/17/19 08:19 11/17/19 08:19 11/17/19 08:19 11/17/19 09:00 oral mucosa dry lungs clear cvs s1s2 rrabd soft ext no edema telles in place with cloudy urine neuro poorly responsive CBC, BMP 11/17/19 06:20 11/17/19 06:20 Current Medications Generic Name Dose Route Start Last Admin Trade Name Freq PRN Reason Stop Dose Admin Acetaminophen 650 mg 11/15/19 06:23 11/15/19 20:35 Tylenol Suppository - [place] 650 mg Q6H PRN Administration FEVER Aspirin 81 mg 11/15/19 10:00 11/17/19 09:12 Asa - PO 81 mg DAILY MELVIN Administration Atorvastatin Calcium 10 mg 11/14/19 22:00 11/16/19 21:18 Lipitor - PO Not Given HS MELVIN Ceftaroline Fosamil 400 mg/ 100 mls @ 200 mls/hr 11/15/19 14:45 11/17/19 09: 07 Dextrose IVPB 200 mls/hr BID MELVIN Administration Protocol Dextrose/Sodium Chloride 1,000 mls @ 100 mls/hr 11/15/19 16:45 11/16/19 18:33 D5-1/2ns - IV 100 mls/hr ASDIR MELVIN Administration Daptomycin 500 mg/ Sodium 50 mls @ 100 mls/hr 11/17/19 10:30 Chloride IVPB Q48H MELVIN Protocol Memantine 5 mg 11/14/19 10:00 11/17/19 09:12 Namenda - PO 5 mg BID MELVIN Administration Impression 1. VIJAY on ckd 2. lactic acidosis 3. bacteremia 4. sepsis 5. dementia 6. hx htn 7 volume depletion but he keeps making urine possibly from the hyperglycemia Plan continue hydration antibiotics per id continue telles drainage adjust antibiotics to egfr less than 10 change iv to 1/2 ns MV
[2019-11-17] MEDS: SODIUM CHLORIDE 0.45% 1,000 ML IV SCH (12:41)
[2019-11-17] MEDS: DAPTOMYCIN 500 MG in SODIUM CHLORIDE 50 ML IVPB SCH (13:33)
[2019-11-17] MEDS: ATORVASTATIN CA 10 MG TABLET (FP) PO SCH (21:21)
--- NOTE | 2019-11-18 08:18 | PN ---
Progress Note, Physician - Current Medication List Current Medications: Active Medications Acetaminophen (Tylenol Suppository -) 650 mg [place] Q6H PRN PRN Reason: FEVER Last Admin: 11/15/19 20:35 Dose: 650 mg Aspirin (Asa -) 81 mg PO DAILY [facility] Last Admin: 11/17/19 09:12 Dose: 81 mg Atorvastatin Calcium (Lipitor -) 10 mg PO HS [facility] Last Admin: 11/17/19 21:21 Dose: Not Given Ceftaroline Fosamil 400 mg/ (Dextrose) 100 mls @ 200 mls/hr IVPB BID [facility]; Protocol Last Admin: 11/17/19 21:22 Dose: 200 mls/hr Daptomycin 500 mg/ Sodium (Chloride) 50 mls @ 100 mls/hr IVPB Q48H [facility]; Protocol Last Admin: 11/17/19 13:33 Dose: 100 mls/hr Sodium Chloride (1/2 Normal Saline) 1,000 mls @ 100 mls/hr IV ASDIR [facility] Last Admin: 11/17/19 12:41 Dose: 100 mls/hr Memantine (Namenda -) 5 mg PO BID [facility] Last Admin: 11/17/19 21:21 Dose: Not Given - Objective Vital Signs: Vital Signs Temperature 98.0 F 11/18/19 06:00 Pulse Rate 65 11/18/19 06:00 Respiratory Rate 20 11/18/19 06:00 Blood Pressure 127/47 L 11/18/19 06:00 O2 Sat by Pulse Oximetry (%) 95 11/17/19 21:00 Cardiovascular: Yes: S1, S2 Respiratory: Yes: Regular, CTA Bilaterally Gastrointestinal: Yes: Normal Bowel Sounds, Soft Labs: CBC, BMP 11/17/19 06:20 11/17/19 06:20 INR, PTT INR 1.31 (0.83-1.09) H 11/13/19 21:30 Assessment/Plan - Problems (1) VIJAY (acute kidney injury) Assessment/Plan: -Worsening--on ivf -monitor renal function daily -Renal consult Code(s): N17.9 - ACUTE KIDNEY FAILURE, UNSPECIFIED (2) NSTEMI (non-ST elevated myocardial infarction) Assessment/Plan: -Cardiology consult--Demand Ischemia -Troponin 2.61~2.07~1.85 -Tele monitoring -EKG shows NSR with LBBB -Atorvastatin -Aspirin Code(s): I21.4 - NON-ST ELEVATION (NSTEMI) MYOCARDIAL INFARCTION (3) Sepsis Assessment/Plan: -ID consult -LA 4.0~2.8 -Leukocytosis WBC 20.7 -afebrile -CXR shows no acute pathology -Urine Legionella negative -UC and BC results Microbiology Microbiology 11/17/19 06:45 Blood - Peripheral Venous Blood Culture - Preliminary NO GROWTH OBTAINED AFTER 24 HOURS, INCUBATION TO CONTINUE FOR 4 DAYS. 11/17/19 06:40 Blood - Peripheral Venous Blood Culture - Preliminary NO GROWTH OBTAINED AFTER 24 HOURS, INCUBATION TO CONTINUE FOR 4 DAYS. 11/15/19 05:45 Blood - Peripheral Venous Blood Culture - Final S Aureus 11/15/19 05:40 Blood - Peripheral Venous Blood Culture - Preliminary Staphylococcus Latex Coag Pos 11/13/19 21:30 Blood - Peripheral Venous Blood Culture - Final Presumptive Mrsa (Pbp2a Pos) 11/14/19 00:45 Urine - Urine Clean Catch Urine Culture - Final S Aureus 11/13/19 21:30 Blood - Peripheral Venous Blood Culture - Final Mr S Aureus 11/14/19 00:45 Urine For Antigen Detection Legionella Antigen - Final 11/14/19 00:45 Urine For Antigen Detection Streptococcus pneumoniae Antigen (M - Final -ON VANCO -tylenol for temp >100F Code(s): A41.9 - SEPSIS, UNSPECIFIED ORGANISM (4) Dementia Assessment/Plan: -Neurology consult -Head CT scan shows moderate atrophy, no gross evidence of a focal intracranial lesion or hemorrhage -Namenda Code(s): F03.90 - UNSPECIFIED DEMENTIA WITHOUT BEHAVIORAL DISTURBANCE (5) HTN (hypertension) Assessment/Plan: -low Na diet Code(s): I10 - ESSENTIAL (PRIMARY) HYPERTENSION
[2019-11-18] MEDS ORDERED: PT OWN MED DRAWER 7, Y5N ONE ×2 (08:59→22:09)
[2019-11-18] MEDS: DEXTROSE 5% IVPB SCH ×2 (09:21→22:18)
[2019-11-18] MEDS: CEFTAROLINE FOSAMIL ACETATE IVPB SCH ×2 (09:21→22:18)
[2019-11-18] MEDS: WATER IVPB SCH ×2 (09:21→22:18)
[2019-11-18] MEDS: ASPIRIN 81 MG CHEWABLE TABLETS PO SCH (09:28)
[2019-11-18] MEDS: MEMANTINE HCL 5 MG TABLET (UD) PO SCH ×2 (09:28→22:10)
[2019-11-18] MEDS: SODIUM CHLORIDE 0.45% 1,000 ML IV SCH (11:48)
--- NOTE | 2019-11-18 13:11 | PN ---
Progress Note, BAR BACK - Note Progress Note: Selected Entries 11/17/19 11/17/19 11/17/19 02:00 06:00 08:19 Breakfast Temperature 98.3 F 97.8 F 98.8 F 11/17/19 11/17/19 11/17/19 14:00 18:00 22:00 Breakfast Temperature 97.8 F 98.4 F 97.9 F 11/18/19 11/18/19 11/18/19 01:53 06:00 08:37 Breakfast Temperature 97.4 F L 98.0 F 97.7 F 11/18/19 09:37 Breakfast NPO Temperature Laboratory Tests 11/14/19 11/15/19 11/16/19 05:32 05:40 06:10 WBC 20.7 H 20.2 H 23.1 H 11/17/19 06:20 WBC 20.9 H On a/b tx Much more alert. Vocalizing with good vocal quality. Jargon with occasional intelligible words "Good!" Delayed swallow, at manohar,es not triggered, with aspiration risk. Cough response on thin liquid. Overtly tolerated trials of puree and nectar thick liquid on a tsp. Suggest trial of -Dysphagia puree and nectar thick liquid on a tsp. Meds in applesauce Tell pt to swallow with each bite/sip Monitor tolerance MBS if cough,congestion
[2019-11-18 13:57] LABS: CALCIUM 7.7 mg/dL (8.5-10.1); CREATININE 5.6 mg/dL (0.55-1.3); POTASSIUM 3.9 mmol/L (3.5-5.1)
[2019-11-18 14:10] LABS: BLOOD UREA NITROGEN 130.7 mg/dL (7-18)
--- NOTE | 2019-11-18 14:40 | PN ---
Progress Note, Physician History of Present Illness: Pt seen and examined at bedside. He remains lethargic. He is making urine. - Current Medication List Current Medications: Active Medications Acetaminophen (Tylenol Suppository -) 650 mg [place] Q6H PRN PRN Reason: FEVER Last Admin: 11/15/19 20:35 Dose: 650 mg Aspirin (Asa -) 81 mg PO DAILY [facility] Last Admin: 11/18/19 09:28 Dose: 81 mg Atorvastatin Calcium (Lipitor -) 10 mg PO HS [facility] Last Admin: 11/17/19 21:21 Dose: Not Given Ceftaroline Fosamil 400 mg/ (Dextrose) 100 mls @ 200 mls/hr IVPB BID [facility]; Protocol Last Admin: 11/18/19 09:21 Dose: 200 mls/hr Daptomycin 500 mg/ Sodium (Chloride) 50 mls @ 100 mls/hr IVPB Q48H MELVIN; Protocol Last Admin: 11/17/19 13:33 Dose: 100 mls/hr Sodium Chloride (1/2 Normal Saline) 1,000 mls @ 100 mls/hr IV ASDIR [facility] Last Admin: 11/18/19 11:48 Dose: 100 mls/hr Memantine (Namenda -) 5 mg PO BID [facility] Last Admin: 11/18/19 09:28 Dose: 5 mg - Objective Vital Signs: Vital Signs Temperature 98.5 F 11/18/19 13:20 Pulse Rate 69 11/18/19 13:20 Respiratory Rate 20 11/18/19 13:20 Blood Pressure 121/52 L 11/18/19 13:20 O2 Sat by Pulse Oximetry (%) 95 11/18/19 09:00 Constitutional: Yes: Calm Eyes: Yes: Conjunctiva Clear HENT: Yes: Atraumatic Neck: Yes: Supple Cardiovascular: Yes: S1, S2 Respiratory: Yes: CTA Bilaterally Gastrointestinal: Yes: Soft Genitourinary: Yes: Ford Present Musculoskeletal: Yes: Muscle Weakness Edema: No Neurological: Yes: Lethargy Labs: CBC, BMP 11/17/19 06:20 11/18/19 12:49 INR, PTT INR 1.31 (0.83-1.09) H 11/13/19 21:30 Problem List - Problems (1) VIJAY (acute kidney injury) Code(s): N17.9 - ACUTE KIDNEY FAILURE, UNSPECIFIED (2) Dementia Code(s): F03.90 - UNSPECIFIED DEMENTIA WITHOUT BEHAVIORAL DISTURBANCE Assessment/Plan Current Medications Generic Name Dose Route Start Last Admin Trade Name Monse PRN Reason Stop Dose Admin Acetaminophen 650 mg 11/15/19 06:23 11/15/19 20:35 Tylenol Suppository - [place] 650 mg Q6H PRN Administration FEVER Aspirin 81 mg 11/15/19 10:00 11/18/19 09:28 Asa - PO 81 mg DAILY MELVIN Administration Atorvastatin Calcium 10 mg 11/14/19 22:00 11/17/19 21:21 Lipitor - PO Not Given HS MELVIN Ceftaroline Fosamil 400 mg/ 100 mls @ 200 mls/hr 11/15/19 14:45 11/18/19 09: 21 Dextrose IVPB 200 mls/hr BID MELVIN Administration Protocol Daptomycin 500 mg/ Sodium 50 mls @ 100 mls/hr 11/17/19 10:30 11/17/19 13:33 Chloride IVPB 100 mls/hr Q48H MELVIN Administration Protocol Sodium Chloride 1,000 mls @ 100 mls/hr 11/17/19 12:00 11/18/19 11:48 1/2 Normal Saline IV 100 mls/hr ASDIR MELVIN Administration Memantine 5 mg 11/14/19 10:00 11/18/19 09:28 Namenda - PO 5 mg BID MELVIN Administration Impression 1. VIJAY 2. lactic acidosis 3. bacteremia 4. sepsis 5. dementia 6. hx htn 7. hypernatremia Plan - change fluids to d5w as sodium is worsening - management expert unchanged today - repeat labs in am - will order serologic workup - abx per primary team - renal dose meds
[2019-11-18] MEDS: DEXTROSE 5%-WATER - 1,000 ML IV SCH (15:50)
--- NOTE | 2019-11-18 16:56 | PN ---
Progress Note (short form) - Note Progress Note: MRSA bacteremia much more alert opens his eyes Vital Signs Period Temp Pulse Resp BP Sys/[place] Pulse Ox Last 24 Hr 97.4 F-98.5 F 62-69 18-20 96-127/47-63 95-95 cor-rrr lungs decreased bs at bases abd soft, NT ext less swelling RUQ telles CBC, BMP 11/17/19 06:20 11/18/19 12:49 Microbiology 11/15/19 05:40 Blood - Peripheral Venous Blood Culture - Final S Aureus 11/17/19 06:45 Blood - Peripheral Venous Blood Culture - Preliminary NO GROWTH OBTAINED AFTER 24 HOURS, INCUBATION TO CONTINUE FOR 4 DAYS. 11/17/19 06:40 Blood - Peripheral Venous Blood Culture - Preliminary NO GROWTH OBTAINED AFTER 24 HOURS, INCUBATION TO CONTINUE FOR 4 DAYS. 11/15/19 05:45 Blood - Peripheral Venous Blood Culture - Final S Aureus 11/13/19 21:30 Blood - Peripheral Venous Blood Culture - Final Presumptive Mrsa (Pbp2a Pos) 11/14/19 00:45 Urine - Urine Clean Catch Urine Culture - Final S Aureus 11/13/19 21:30 Blood - Peripheral Venous Blood Culture - Final S Aureus 11/14/19 00:45 Urine For Antigen Detection Legionella Antigen - Final 11/14/19 00:45 Urine For Antigen Detection Streptococcus pneumoniae Antigen (M - Final Laboratory Tests 11/15/19 11/15/19 05:40 05:40 ESR 87 H C-Reactive Protein 33.4 H a/p MRSA bacteremia-r/o endocarditis with underlying vanco giulia is 2 continue daptomycin and ceftaroline most recent blood cultures 11/17 is negative echo noted esr/crp noted ct scan chest abd/pelvis- unremarkable duplex right arm no dvt +troponins- NSTEMI- per cardiology VIJAY- renal /bladder sono- no obstruction renal evaluation, ivf per renal , + urine output telles catheter in place Problem List - Problems (1) Sepsis Code(s): A41.9 - SEPSIS, UNSPECIFIED ORGANISM (2) Gram-positive bacteremia Code(s): R78.81 - BACTEREMIA (3) NSTEMI (non-ST elevated myocardial infarction) Code(s): I21.4 - NON-ST ELEVATION (NSTEMI) MYOCARDIAL INFARCTION (4) VIJAY (acute kidney injury) Code(s): N17.9 - ACUTE KIDNEY FAILURE, UNSPECIFIED
[2019-11-18] MEDS ORDERED: INSULIN (NOVOLOG) ASPART 100 UNITS/ML 10ML VIAL SQ ONE (17:00)
[2019-11-18] MEDS: ATORVASTATIN CA 10 MG TABLET (FP) PO SCH (22:10)
[2019-11-18] MEDS: INSULIN SLIDING SCALE (NOVOLOG) 1 VIAL SQ SCH (22:18)
[2019-11-19] MEDS: DEXTROSE 5%-WATER - 1,000 ML IV SCH (02:20)
[2019-11-19] MEDS: INSULIN SLIDING SCALE (NOVOLOG) 1 VIAL SQ SCH ×4 (06:26→22:34)
[2019-11-19] MEDS ORDERED: PT OWN MED DRAWER 7, Y5N ONE ×3 (06:52→21:27)
[2019-11-19 08:09] LABS: ALBUMIN 1.7 g/dl (3.4-5.0); BILIRUBIN,TOTAL 1.4 mg/dL (0.2-1); CREATININE 5.4 mg/dL (0.55-1.3); POTASSIUM 3.8 mmol/L (3.5-5.1); TOT PROT 5.7 g/dl (6.4-8.2)
--- NOTE | 2019-11-19 08:52 | PN ---
Progress Note, Physician - Current Medication List Current Medications: Active Medications Acetaminophen (Tylenol Suppository -) 650 mg RI Q6H PRN PRN Reason: FEVER Last Admin: 11/15/19 20:35 Dose: 650 mg Aspirin (Asa -) 81 mg PO DAILY [facility] Last Admin: 11/18/19 09:28 Dose: 81 mg Atorvastatin Calcium (Lipitor -) 10 mg PO HS [facility] Last Admin: 11/18/19 22:10 Dose: 10 mg Ceftaroline Fosamil 400 mg/ (Dextrose) 100 mls @ 200 mls/hr IVPB BID [facility]; Protocol Last Admin: 11/18/19 22:18 Dose: 200 mls/hr Daptomycin 500 mg/ Sodium (Chloride) 50 mls @ 100 mls/hr IVPB Q48H [facility]; Protocol Last Admin: 11/17/19 13:33 Dose: 100 mls/hr Dextrose (D5w -) 1,000 mls @ 100 mls/hr IV ASDIR [facility] Last Admin: 11/19/19 02:20 Dose: 100 mls/hr Insulin Aspart (Novolog Vial Sliding Scale -) 1 vial SQ ACHS [facility]; Protocol Last Admin: 11/19/19 06:26 Dose: 2 units Memantine (Namenda -) 5 mg PO BID [facility] Last Admin: 11/18/19 22:10 Dose: 5 mg - Objective Vital Signs: Vital Signs Temperature 99.6 F 11/19/19 08:34 Pulse Rate 72 11/19/19 08:34 Respiratory Rate 18 11/19/19 08:34 Blood Pressure 132/60 11/19/19 08:34 O2 Sat by Pulse Oximetry (%) 92 L 11/18/19 21:00 Cardiovascular: Yes: S1, S2 Respiratory: Yes: Regular, CTA Bilaterally Gastrointestinal: Yes: Normal Bowel Sounds, Soft Labs: CBC, BMP 11/17/19 06:20 11/19/19 06:10 INR, PTT INR 1.31 (0.83-1.09) H 11/13/19 21:30 Assessment/Plan - Problems (1) VIJAY (acute kidney injury) Assessment/Plan: -dc ivf -monitor renal function daily -Renal consult on board Code(s): N17.9 - ACUTE KIDNEY FAILURE, UNSPECIFIED (2) NSTEMI (non-ST elevated myocardial infarction) Assessment/Plan: -Cardiology consult--Demand Ischemia -EKG shows NSR with LBBB -Atorvastatin -Aspirin Code(s): I21.4 - NON-ST ELEVATION (NSTEMI) MYOCARDIAL INFARCTION (3) Sepsis Assessment/Plan: -ID consult -Leukocytosis -afebrile -Ct scan-no consolidation or intrabdominal acute process -Urine Legionella negative -UC and BC results Microbiology Microbiology 11/17/19 06:45 Blood - Peripheral Venous Blood Culture - Preliminary NO GROWTH OBTAINED AFTER 24 HOURS, INCUBATION TO CONTINUE FOR 4 DAYS. 11/17/19 06:40 Blood - Peripheral Venous Blood Culture - Preliminary NO GROWTH OBTAINED AFTER 24 HOURS, INCUBATION TO CONTINUE FOR 4 DAYS. 11/15/19 05:45 Blood - Peripheral Venous Blood Culture - Final S Aureus 11/15/19 05:40 Blood - Peripheral Venous Blood Culture - Preliminary Staphylococcus Latex Coag Pos 11/13/19 21:30 Blood - Peripheral Venous Blood Culture - Final Presumptive Mrsa (Pbp2a Pos) 11/14/19 00:45 Urine - Urine Clean Catch Urine Culture - Final S Aureus 11/13/19 21:30 Blood - Peripheral Venous Blood Culture - Final S Aureus 11/14/19 00:45 Urine For Antigen Detection Legionella Antigen - Final 11/14/19 00:45 Urine For Antigen Detection Streptococcus pneumoniae Antigen (M - Final -ON VANCO -tylenol for temp >100F Code(s): A41.9 - SEPSIS, UNSPECIFIED ORGANISM (4) Dementia Assessment/Plan: -Neurology consult -Head CT scan shows moderate atrophy, no gross evidence of a focal intracranial lesion or hemorrhage -Namenda Code(s): F03.90 - UNSPECIFIED DEMENTIA WITHOUT BEHAVIORAL DISTURBANCE (5) HTN (hypertension) Assessment/Plan: -low Na diet Code(s): I10 - ESSENTIAL (PRIMARY) HYPERTENSION
[2019-11-19 08:55] LABS: BLOOD UREA NITROGEN 122.9 mg/dL (7-18)
[2019-11-19] MEDS: CEFTAROLINE FOSAMIL ACETATE IVPB SCH ×2 (10:16→22:34)
[2019-11-19] MEDS: DEXTROSE 5% IVPB SCH ×2 (10:16→22:34)
[2019-11-19] MEDS: ASPIRIN 81 MG CHEWABLE TABLETS PO SCH (10:16)
[2019-11-19] MEDS: TAMSULOSIN HCL 0.4 MG CAP PO SCH (10:16)
[2019-11-19] MEDS: WATER IVPB SCH ×2 (10:16→22:34)
[2019-11-19] MEDS: MEMANTINE HCL 5 MG TABLET (UD) PO SCH ×2 (10:16→22:33)
[2019-11-19 11:10] LABS: BASO % 0.2 % (0-2.0); EOS % 2.2 % (0-4.5); HEMATOCRIT 32.4 % (35.4-49); HEMOGLOBIN 10.5 GM/dL (11.7-16.9); LYMPH % 7.1 % (8-40); MCH 28.8 pg (25.7-33.7); MCHC 32.5 g/dl (32.0-35.9); MEAN CELL VOLUME 88.6 fl (80-96); MONO % 9.1 % (3.8-10.2); NEUT % 81.4 % (42.8-82.8); PLATELET COUNT 212 K/MM3 (134-434); RBC 3.66 M/mm3 (4.00-5.60); WHITE BLOOD COUNT 15.2 K/mm3 (4.0-10.0)
--- NOTE | 2019-11-19 11:45 | PN ---
Progress Note, [employer] - Note Progress Note: Selected Entries 11/17/19 11/17/19 11/17/19 02:00 06:00 08:19 Breakfast Temperature 98.3 F 97.8 F 98.8 F 11/17/19 11/17/19 11/17/19 14:00 18:00 22:00 Breakfast Temperature 97.8 F 98.4 F 97.9 F 11/18/19 11/18/19 11/18/19 01:53 06:00 08:37 Breakfast Temperature 97.4 F L 98.0 F 97.7 F 11/18/19 09:37 Breakfast NPO Temperature Laboratory Tests 11/14/19 11/15/19 11/16/19 05:32 05:40 06:10 WBC 20.7 H 20.2 H 23.1 H 11/17/19 06:20 WBC 20.9 H Selected Entries 11/18/19 11/18/19 11/18/19 01:53 06:00 08:37 Temperature 97.4 F L 98.0 F 97.7 F 11/18/19 11/18/19 11/18/19 13:20 17:00 21:00 Temperature 98.5 F 98.6 F 98.8 F 11/19/19 11/19/19 11/19/19 01:00 05:00 08:34 Temperature 98.4 F 99.1 F 99.6 F Laboratory Tests 11/17/19 11/19/19 06:20 06:10 WBC 20.9 H 15.2 H On a/b tx Much more alert. Vocalizing with good vocal quality. Jargon with occasional intelligible words "Good!" Dysphagia puree and nectar thick liquid on a tsp. ordered excellent appetite. Meds in applesauce Tell pt to swallow with each bite/sip Monitor tolerance MBS if cough,congestion Please order Ensure pudding/magic cup to increase nutritional intake.
[2019-11-19] MEDS: DAPTOMYCIN 500 MG in SODIUM CHLORIDE 50 ML IVPB SCH (11:54)
[2019-11-19 13:12] LABS: ANISOCYTOSIS 0; MACROCYTOSIS 0; PLATELET ESTIMATE NORMAL
--- NOTE | 2019-11-19 15:22 | PN ---
Progress Note (short form) - Note Progress Note: MRSA bacteremia more awake eating today when fed telles removed Vital Signs Period Temp Pulse Resp BP Sys/[place] Pulse Ox Last 24 Hr 98.4 F-99.6 F 68-73 18-20 111-135/53-66 92-96 cor-rrr lungs decreased bs at bases abd soft,nt ext no edema less swelling RUE CBC, BMP 11/19/19 06:10 11/19/19 06:10 Microbiology 11/17/19 06:45 Blood - Peripheral Venous Blood Culture - Preliminary NO GROWTH OBTAINED AFTER 48 HOURS, INCUBATION TO CONTINUE FOR 3 DAYS. 11/17/19 06:40 Blood - Peripheral Venous Blood Culture - Preliminary NO GROWTH OBTAINED AFTER 48 HOURS, INCUBATION TO CONTINUE FOR 3 DAYS. 11/15/19 05:40 Blood - Peripheral Venous Blood Culture - Final S Aureus 11/15/19 05:45 Blood - Peripheral Venous Blood Culture - Final S Aureus 11/13/19 21:30 Blood - Peripheral Venous Blood Culture - Final Presumptive Mrsa (Pbp2a Pos) 11/14/19 00:45 Urine - Urine Clean Catch Urine Culture - Final S Aureus 11/13/19 21:30 Blood - Peripheral Venous Blood Culture - Final S Aureus 11/14/19 00:45 Urine For Antigen Detection Legionella Antigen - Final 11/14/19 00:45 Urine For Antigen Detection Streptococcus pneumoniae Antigen (M - Final Laboratory Tests 11/15/19 11/15/19 05:40 05:40 ESR 87 H C-Reactive Protein 33.4 H a/p MRSA bacteremia-r/o endocarditis with underlying vanco giulia is 2 continue daptomycin and ceftaroline most recent blood cultures 11/17 is negative echo noted esr/crp noted- ct scan chest abd/pelvis- unremarkable duplex right arm no dvt will require senior living iv antibiotics when ready for discharge +troponins- NSTEMI- per cardiology VIJAY- renal /bladder sono- no obstruction renal evaluation, ivf per renal , + urine output- creatinine may have peaked, starting to trend down Problem List - Problems (1) Sepsis Code(s): A41.9 - SEPSIS, UNSPECIFIED ORGANISM Qualifiers: Sepsis type: sepsis due to unspecified organism Sepsis acute organ dysfunction status: unspecified Qualified Code(s): A41.9 - Sepsis, unspecified organism (2) Gram-positive bacteremia Code(s): R78.81 - BACTEREMIA (3) NSTEMI (non-ST elevated myocardial infarction) Code(s): I21.4 - NON-ST ELEVATION (NSTEMI) MYOCARDIAL INFARCTION (4) VIJYA (acute kidney injury) Code(s): N17.9 - ACUTE KIDNEY FAILURE, UNSPECIFIED
--- NOTE | 2019-11-19 17:02 | PN ---
Progress Note, Physician History of Present Illness: Pt seen and examined at bedside. He is completing his meals. - Current Medication List Current Medications: Active Medications Acetaminophen (Tylenol Suppository -) 650 mg [place] Q6H PRN PRN Reason: FEVER Last Admin: 11/15/19 20:35 Dose: 650 mg Aspirin (Asa -) 81 mg PO DAILY [facility] Last Admin: 11/19/19 10:16 Dose: 81 mg Atorvastatin Calcium (Lipitor -) 10 mg PO HS [facility] Last Admin: 11/18/19 22:10 Dose: 10 mg Ceftaroline Fosamil 400 mg/ (Dextrose) 100 mls @ 200 mls/hr IVPB BID [facility]; Protocol Last Admin: 11/19/19 10:16 Dose: 200 mls/hr Daptomycin 500 mg/ Sodium (Chloride) 50 mls @ 100 mls/hr IVPB Q48H [facility]; Protocol Last Admin: 11/19/19 11:54 Dose: 100 mls/hr Insulin Aspart (Novolog Vial Sliding Scale -) 1 vial SQ ACHS [facility]; Protocol Last Admin: 11/19/19 12:03 Dose: 5 units Memantine (Namenda -) 5 mg PO BID [facility] Last Admin: 11/19/19 10:16 Dose: 5 mg Tamsulosin HCl (Flomax -) 0.4 mg PO DAILY@0830 [facility] Last Admin: 11/19/19 10:16 Dose: 0.4 mg - Objective Vital Signs: Vital Signs Temperature 99.7 F H 11/19/19 14:00 Pulse Rate 91 H 11/19/19 14:00 Respiratory Rate 18 11/19/19 14:00 Blood Pressure 116/62 11/19/19 14:00 O2 Sat by Pulse Oximetry (%) 96 11/19/19 14:00 Constitutional: Yes: Calm Eyes: Yes: Conjunctiva Clear HENT: Yes: Atraumatic Cardiovascular: Yes: S1, S2 Respiratory: Yes: CTA Bilaterally Gastrointestinal: Yes: Soft Genitourinary: Yes: Ford Present Musculoskeletal: Yes: Muscle Weakness Edema: No Integumentary: Yes: WNL Neurological: Yes: Confusion Labs: CBC, BMP 11/19/19 06:10 11/19/19 06:10 INR, PTT INR 1.31 (0.83-1.09) H 11/13/19 21:30 - ....Imaging Chest X-ray: Report Reviewed Problem List - Problems (1) VIJAY (acute kidney injury) Code(s): N17.9 - ACUTE KIDNEY FAILURE, UNSPECIFIED (2) Dementia Code(s): F03.90 - UNSPECIFIED DEMENTIA WITHOUT BEHAVIORAL DISTURBANCE Assessment/Plan Current Medications Generic Name Dose Route Start Last Admin Trade Name Freq PRN Reason Stop Dose Admin Acetaminophen 650 mg 11/15/19 06:23 11/15/19 20:35 Tylenol Suppository - [place] 650 mg Q6H PRN Administration FEVER Aspirin 81 mg 11/15/19 10:00 11/19/19 10:16 Asa - PO 81 mg DAILY MELVIN Administration Atorvastatin Calcium 10 mg 11/14/19 22:00 11/18/19 22:10 Lipitor - PO 10 mg HS [facility]ELVIN Administration Ceftaroline Fosamil 400 mg/ 100 mls @ 200 mls/hr 11/15/19 14:45 11/19/19 10: 16 Dextrose IVPB 200 mls/hr BID [facility]IN Administration Protocol Daptomycin 500 mg/ Sodium 50 mls @ 100 mls/hr 11/17/19 10:30 11/19/19 11:54 Chloride IVPB 100 mls/hr Q48H MELVIN Administration Protocol Insulin Aspart 1 vial 11/18/19 22:00 11/19/19 12:03 Novolog Vial Sliding Scale - SQ 5 units ACHS MEL[facility]IN Administration Protocol Memantine 5 mg 11/14/19 10:00 11/19/19 10:16 Namenda - PO 5 mg BID [facility] Administration Tamsulosin HCl 0.4 mg 11/19/19 08:30 11/19/19 10:16 Flomax - PO 0.4 mg DAILY@0830 MELVIN Administration Laboratory Tests 11/19/19 11/19/19 06:10 06:10 ARACELI M-Nathan Pending DERRICK Screen Pending c-ANCA Pending Proteinase 3 (PR3) Pending p-ANCA Pending Atypical p-ANCA Pending Myeloperoxidase Ab Pending Double Strand DNA Ab Pending Glomerular Base Memb Ab Pending Impression 1. VIJAY 2. lactic acidosis 3. bacteremia 4. sepsis 5. dementia 6. hx htn 7. hypernatremia Plan - renal function starting to improve - d5w held due to hyperglycemia - will use 1/2 ns - monitor sodium - encourage free water intake
[2019-11-19] MEDS: SODIUM CHLORIDE 0.45% 1,000 ML IV SCH (18:38)
[2019-11-19] MEDS: ATORVASTATIN CA 10 MG TABLET (FP) PO SCH (22:34)
[2019-11-20] MEDS: INSULIN SLIDING SCALE (NOVOLOG) 1 VIAL SQ SCH ×4 (06:27→22:51)
[2019-11-20] MEDS: ACETAMINOPHEN 650 MG SUPP.RECT PR PRN (07:05)
[2019-11-20] MEDS: SODIUM CHLORIDE 0.45% 1,000 ML IV SCH (07:05)
[2019-11-20 07:07] LABS: BASO % 0.2 % (0-2.0); EOS % 2.7 % (0-4.5); HEMATOCRIT 31.2 % (35.4-49); HEMOGLOBIN 10.3 GM/dL (11.7-16.9); LYMPH % 7.7 % (8-40); MCHC 33.1 g/dl (32.0-35.9); MEAN CELL VOLUME 87.8 fl (80-96); MEAN PLT VOLUME 11.4 fl (7.5-11.1); MONO % 7.1 % (3.8-10.2); NEUT % 82.3 % (42.8-82.8); PLATELET COUNT 224 K/MM3 (134-434); RBC 3.56 M/mm3 (4.00-5.60); RDW 14.2 % (11.9-15.9); WHITE BLOOD COUNT 17.8 K/mm3 (4.0-10.0)
[2019-11-20 07:37] LABS: ALBUMIN 1.6 g/dl (3.4-5.0); BILIRUBIN,TOTAL 1.2 mg/dL (0.2-1); CALCIUM 8.1 mg/dL (8.5-10.1); CREATININE 4.9 mg/dL (0.55-1.3); POTASSIUM 3.9 mmol/L (3.5-5.1); TOT PROT 5.8 g/dl (6.4-8.2)
--- NOTE | 2019-11-20 07:44 | PN ---
Progress Note, Physician - Current Medication List Current Medications: Active Medications Acetaminophen (Tylenol Suppository -) 650 mg [place] Q6H PRN PRN Reason: FEVER Last Admin: 11/20/19 07:05 Dose: 650 mg Aspirin (Asa -) 81 mg PO DAILY [facility] Last Admin: 11/19/19 10:16 Dose: 81 mg Atorvastatin Calcium (Lipitor -) 10 mg PO HS [facility] Last Admin: 11/19/19 22:34 Dose: 10 mg Ceftaroline Fosamil 400 mg/ (Dextrose) 100 mls @ 200 mls/hr IVPB BID [facility]; Protocol Last Admin: 11/19/19 22:34 Dose: 200 mls/hr Daptomycin 500 mg/ Sodium (Chloride) 50 mls @ 100 mls/hr IVPB Q48H [facility]; Protocol Last Admin: 11/19/19 11:54 Dose: 100 mls/hr Sodium Chloride (1/2 Normal Saline) 1,000 mls @ 100 mls/hr IV ASDIR [facility] Last Admin: 11/20/19 07:05 Dose: 100 mls/hr Insulin Aspart (Novolog Vial Sliding Scale -) 1 vial SQ ACHS [facility]; Protocol Last Admin: 11/20/19 06:27 Dose: 5 units Memantine (Namenda -) 5 mg PO BID [facility] Last Admin: 11/19/19 22:33 Dose: 5 mg Tamsulosin HCl (Flomax -) 0.4 mg PO DAILY@0830 [facility] Last Admin: 11/19/19 10:16 Dose: 0.4 mg - Objective Vital Signs: Vital Signs Temperature 99.6 F 11/20/19 06:00 Pulse Rate 83 11/20/19 06:00 Respiratory Rate 18 11/20/19 06:00 Blood Pressure 95/56 L 11/20/19 06:00 O2 Sat by Pulse Oximetry (%) 96 11/19/19 21:00 Cardiovascular: Yes: S1, S2 Respiratory: Yes: Regular, CTA Bilaterally Gastrointestinal: Yes: Normal Bowel Sounds, Soft Neurological: Yes: Lethargy Labs: CBC, BMP 11/20/19 06:35 INR, PTT INR 1.31 (0.83-1.09) H 11/13/19 21:30 Assessment/Plan - Problems (1) VIJAY (acute kidney injury) Assessment/Plan: -With Hypernatremia--on IVF 1/2 ns -monitor renal function daily -Renal consult on board Code(s): N17.9 - ACUTE KIDNEY FAILURE, UNSPECIFIED (2) NSTEMI (non-ST elevated myocardial infarction) Assessment/Plan: -Cardiology consult--Demand Ischemia -EKG shows NSR with LBBB -Atorvastatin -Aspirin Code(s): I21.4 - NON-ST ELEVATION (NSTEMI) MYOCARDIAL INFARCTION (3) Sepsis Assessment/Plan: -ID consult -Leukocytosis -afebrile -Ct scan-no consolidation or intrabdominal acute process -Urine Legionella negative -UC and BC results Microbiology 11/17/19 06:45 Blood - Peripheral Venous Blood Culture - Preliminary NO GROWTH OBTAINED AFTER 72 HOURS, INCUBATION TO CONTINUE FOR 2 DAYS. 11/17/19 06:40 Blood - Peripheral Venous Blood Culture - Preliminary NO GROWTH OBTAINED AFTER 72 HOURS, INCUBATION TO CONTINUE FOR 2 DAYS. 11/15/19 05:40 Blood - Peripheral Venous Blood Culture - Final S Aureus 11/15/19 05:45 Blood - Peripheral Venous Blood Culture - Final S Aureus 11/13/19 21:30 Blood - Peripheral Venous Blood Culture - Final Presumptive Mrsa (Pbp2a Pos) 11/14/19 00:45 Urine - Urine Clean Catch Urine Culture - Final S Aureus 11/13/19 21:30 Blood - Peripheral Venous Blood Culture - Final Mr S Aureus 11/14/19 00:45 Urine For Antigen Detection Legionella Antigen - Final 11/14/19 00:45 Urine For Antigen Detection Streptococcus pneumoniae Antigen (M - Final -ON VANCO -tylenol for temp >100F Code(s): A41.9 - SEPSIS, UNSPECIFIED ORGANISM (4) Dementia Assessment/Plan: -Neurology consult -Head CT scan shows moderate atrophy, no gross evidence of a focal intracranial lesion or hemorrhage -Namenda Code(s): F03.90 - UNSPECIFIED DEMENTIA WITHOUT BEHAVIORAL DISTURBANCE (5) HTN (hypertension) Assessment/Plan: -low Na diet Code(s): I10 - ESSENTIAL (PRIMARY) HYPERTENSION
[2019-11-20] MEDS ORDERED: PT OWN MED DRAWER 7, Y5N ONE ×3 (08:16→22:20)
[2019-11-20] MEDS: TAMSULOSIN HCL 0.4 MG CAP PO SCH (08:49)
[2019-11-20] MEDS: CEFTAROLINE FOSAMIL ACETATE IVPB SCH ×2 (09:01→22:27)
[2019-11-20] MEDS: DEXTROSE 5% IVPB SCH ×2 (09:01→22:27)
[2019-11-20] MEDS: WATER IVPB SCH ×2 (09:01→22:27)
[2019-11-20] MEDS: MEMANTINE HCL 5 MG TABLET (UD) PO SCH ×2 (09:04→22:52)
[2019-11-20] MEDS: ASPIRIN 81 MG CHEWABLE TABLETS PO SCH (09:04)
[2019-11-20] MEDS: DEXTROSE 5%-WATER - 1,000 ML IV SCH ×2 (11:45→22:27)
--- NOTE | 2019-11-20 11:58 | PN ---
Progress Note, Physician History of Present Illness: Pt seen and examined at bedside. He remains lethargic. He does get up to eat. - Current Medication List Current Medications: Active Medications Acetaminophen (Tylenol Suppository -) 650 mg [place] Q6H PRN PRN Reason: FEVER Last Admin: 11/20/19 07:05 Dose: 650 mg Aspirin (Asa -) 81 mg PO DAILY [facility] Last Admin: 11/20/19 09:04 Dose: 81 mg Atorvastatin Calcium (Lipitor -) 10 mg PO HS [facility] Last Admin: 11/19/19 22:34 Dose: 10 mg Ceftaroline Fosamil 400 mg/ (Dextrose) 100 mls @ 200 mls/hr IVPB BID [facility]; Protocol Last Admin: 11/20/19 09:01 Dose: 200 mls/hr Daptomycin 500 mg/ Sodium (Chloride) 50 mls @ 100 mls/hr IVPB Q48H [facility]; Protocol Last Admin: 11/19/19 11:54 Dose: 100 mls/hr Dextrose (D5w -) 1,000 mls @ 100 mls/hr IV .Q10H [facility] Last Admin: 11/20/19 11:45 Dose: 100 mls/hr Insulin Aspart (Novolog Vial Sliding Scale -) 1 vial SQ ACHS [facility]; Protocol Last Admin: 11/20/19 11:01 Dose: 5 units Memantine (Namenda -) 5 mg PO BID [facility] Last Admin: 11/20/19 09:04 Dose: 5 mg Tamsulosin HCl (Flomax -) 0.4 mg PO DAILY@0830 [facility] Last Admin: 11/20/19 08:49 Dose: 0.4 mg - Objective Vital Signs: Vital Signs Temperature 99.4 F 11/20/19 10:00 Pulse Rate 66 11/20/19 10:00 Respiratory Rate 18 11/20/19 10:00 Blood Pressure 123/67 11/20/19 10:00 O2 Sat by Pulse Oximetry (%) 95 11/20/19 09:00 Constitutional: Yes: Calm Eyes: Yes: Conjunctiva Clear HENT: Yes: Atraumatic Cardiovascular: Yes: S1, S2 Respiratory: Yes: CTA Bilaterally Gastrointestinal: Yes: Soft Genitourinary: Yes: Incontinence Musculoskeletal: Yes: Muscle Weakness Edema: No Neurological: Yes: Lethargy Labs: CBC, BMP 11/20/19 06:35 11/20/19 06:35 INR, PTT INR 1.31 (0.83-1.09) H 11/13/19 21:30 Problem List - Problems (1) VIJAY (acute kidney injury) Code(s): N17.9 - ACUTE KIDNEY FAILURE, UNSPECIFIED (2) Dementia Code(s): F03.90 - UNSPECIFIED DEMENTIA WITHOUT BEHAVIORAL DISTURBANCE Assessment/Plan Current Medications Generic Name Dose Route Start Last Admin Trade Name Freq PRN Reason Stop Dose Admin Acetaminophen 650 mg 11/15/19 06:23 11/20/19 07:05 Tylenol Suppository - [place] 650 mg Q6H PRN Administration FEVER Aspirin 81 mg 11/15/19 10:00 11/20/19 09:04 Asa - PO 81 mg DAILY MEL[facility]IN Administration Atorvastatin Calcium 10 mg 11/14/19 22:00 11/19/19 22:34 Lipitor - PO 10 mg HS [facility]IN Administration Ceftaroline Fosamil 400 mg/ 100 mls @ 200 mls/hr 11/15/19 14:45 11/20/19 09: 01 Dextrose IVPB 200 mls/hr BID [facility]IN Administration Protocol Daptomycin 500 mg/ Sodium 50 mls @ 100 mls/hr 11/17/19 10:30 11/19/19 11:54 Chloride IVPB 100 mls/hr Q48H MELVIN Administration Protocol Dextrose 1,000 mls @ 100 mls/hr 11/20/19 11:45 11/20/19 11:45 D5w - IV 100 mls/hr .Q10H MELVIN Administration Insulin Aspart 1 vial 11/18/19 22:00 11/20/19 11:01 Novolog Vial Sliding Scale - SQ 5 units ACHS MELVIN Administration Protocol Memantine 5 mg 11/14/19 10:00 11/20/19 09:04 Namenda - PO 5 mg BID MELVIN Administration Tamsulosin HCl 0.4 mg 11/19/19 08:30 11/20/19 08:49 Flomax - PO 0.4 mg DAILY@0830 MELVIN Administration Impression 1. VIJAY 2. lactic acidosis 3. bacteremia 4. sepsis 5. dementia 6. hx htn 7. hypernatremia Plan - renal function is improving - sodium rising - change fluids back to d5w - pt on sliding scale insulin - monitor sodium
--- NOTE | 2019-11-20 15:09 | PN ---
Progress Note (short form) - Note Progress Note: MRSA bacteremia more awake eating today when fed low grade temp Vital Signs Period Temp Pulse Resp BP Sys/[place] Pulse Ox Last 24 Hr 98.1 F-99.8 F 66-83 18-18 95-130/46-67 95-96 cor-rrr lungs decreased bs at bases abd soft,mild pelvic fullness and discomfort to pallplation ext no edema, still some erythema right arm antecub area CBC, BMP 11/20/19 06:35 11/20/19 06:35 Laboratory Tests 11/15/19 11/15/19 05:40 05:40 ESR 87 H C-Reactive Protein 33.4 H Microbiology 11/17/19 06:45 Blood - Peripheral Venous Blood Culture - Preliminary NO GROWTH OBTAINED AFTER 72 HOURS, INCUBATION TO CONTINUE FOR 2 DAYS. 11/17/19 06:40 Blood - Peripheral Venous Blood Culture - Preliminary NO GROWTH OBTAINED AFTER 72 HOURS, INCUBATION TO CONTINUE FOR 2 DAYS. 11/15/19 05:40 Blood - Peripheral Venous Blood Culture - Final S Aureus 11/15/19 05:45 Blood - Peripheral Venous Blood Culture - Final S Aureus 11/13/19 21:30 Blood - Peripheral Venous Blood Culture - Final Presumptive Mrsa (Pbp2a Pos) 11/14/19 00:45 Urine - Urine Clean Catch Urine Culture - Final S Aureus 11/13/19 21:30 Blood - Peripheral Venous Blood Culture - Final S Aureus 11/14/19 00:45 Urine For Antigen Detection Legionella Antigen - Final 11/14/19 00:45 Urine For Antigen Detection Streptococcus pneumoniae Antigen (M - Final a/p MRSA bacteremia-r/o endocarditis with underlying vanco giulia is 2 continue daptomycin and ceftaroline most recent blood cultures 11/17 is negative repeat blood culture bladder scan echo noted esr/crp noted- ct scan chest abd/pelvis- unremarkable duplex right arm no dvt will require senior living iv antibiotics when ready for discharge +troponins- NSTEMI- per cardiology VIJAY- renal /bladder sono- no obstruction renal evaluation, ivf per renal , + urine output- creatinine may have peaked, starting to trend down Problem List - Problems (1) Sepsis Code(s): A41.9 - SEPSIS, UNSPECIFIED ORGANISM Qualifiers: Sepsis type: sepsis due to unspecified organism Sepsis acute organ dysfunction status: unspecified Qualified Code(s): A41.9 - Sepsis, unspecified organism (2) Gram-positive bacteremia Code(s): R78.81 - BACTEREMIA (3) NSTEMI (non-ST elevated myocardial infarction) Code(s): I21.4 - NON-ST ELEVATION (NSTEMI) MYOCARDIAL INFARCTION (4) VIJAY (acute kidney injury) Code(s): N17.9 - ACUTE KIDNEY FAILURE, UNSPECIFIED
[2019-11-20 18:07] LABS: HEP B CORE AB, TOT Negative (Negative)
[2019-11-20] MEDS: ATORVASTATIN CA 10 MG TABLET (FP) PO SCH (22:52)
[2019-11-21] MEDS: INSULIN SLIDING SCALE (NOVOLOG) 1 VIAL SQ SCH ×4 (06:05→21:38)
--- NOTE | 2019-11-21 07:11 | PN ---
Progress Note, Physician - Current Medication List Current Medications: Active Medications Acetaminophen (Tylenol Suppository -) 650 mg [place] Q6H PRN PRN Reason: FEVER Last Admin: 11/20/19 07:05 Dose: 650 mg Aspirin (Asa -) 81 mg PO DAILY [facility] Last Admin: 11/20/19 09:04 Dose: 81 mg Atorvastatin Calcium (Lipitor -) 10 mg PO HS [facility] Last Admin: 11/20/19 22:52 Dose: 10 mg Ceftaroline Fosamil 400 mg/ (Dextrose) 100 mls @ 200 mls/hr IVPB BID [facility]; Protocol Last Admin: 11/20/19 22:27 Dose: 200 mls/hr Daptomycin 500 mg/ Sodium (Chloride) 50 mls @ 100 mls/hr IVPB Q48H [facility]; Protocol Last Admin: 11/19/19 11:54 Dose: 100 mls/hr Dextrose (D5w -) 1,000 mls @ 100 mls/hr IV .Q10H [facility] Last Admin: 11/20/19 22:27 Dose: 100 mls/hr Insulin Aspart (Novolog Vial Sliding Scale -) 1 vial SQ ACHS [facility]; Protocol Last Admin: 11/21/19 06:05 Dose: 10 units Memantine (Namenda -) 5 mg PO BID [facility] Last Admin: 11/20/19 22:52 Dose: 5 mg Tamsulosin HCl (Flomax -) 0.4 mg PO DAILY@0830 [facility] Last Admin: 11/20/19 08:49 Dose: 0.4 mg - Objective Vital Signs: Vital Signs Temperature 98.1 F 11/21/19 06:00 Pulse Rate 89 11/21/19 06:00 Respiratory Rate 18 11/21/19 06:00 Blood Pressure 114/71 11/21/19 06:00 O2 Sat by Pulse Oximetry (%) 95 11/20/19 21:00 Cardiovascular: Yes: S1, S2 Respiratory: Yes: Rhonchi Gastrointestinal: Yes: Normal Bowel Sounds, Soft Labs: CBC, BMP 11/20/19 06:35 INR, PTT INR 1.31 (0.83-1.09) H 11/13/19 21:30 Assessment/Plan - Problems (1) VIJAY (acute kidney injury) Assessment/Plan: -With Hypernatremia--on IVF 1/2 ns -monitor renal function daily -Renal consult on board Code(s): N17.9 - ACUTE KIDNEY FAILURE, UNSPECIFIED (2) DM Assessment/Plan: -SS -ADD LEVEMIR -ENDO (3) Sepsis Assessment/Plan: -ID consult -Leukocytosis -afebrile -Ct scan-no consolidation or intrabdominal acute process -Urine Legionella negative -UC and BC results Microbiology 11/17/19 06:45 Blood - Peripheral Venous Blood Culture - Preliminary NO GROWTH OBTAINED AFTER 72 HOURS, INCUBATION TO CONTINUE FOR 2 DAYS. 11/17/19 06:40 Blood - Peripheral Venous Blood Culture - Preliminary NO GROWTH OBTAINED AFTER 72 HOURS, INCUBATION TO CONTINUE FOR 2 DAYS. 11/15/19 05:40 Blood - Peripheral Venous Blood Culture - Final S Aureus 11/15/19 05:45 Blood - Peripheral Venous Blood Culture - Final S Aureus 11/13/19 21:30 Blood - Peripheral Venous Blood Culture - Final Presumptive Mrsa (Pbp2a Pos) 11/14/19 00:45 Urine - Urine Clean Catch Urine Culture - Final S Aureus 11/13/19 21:30 Blood - Peripheral Venous Blood Culture - Final Mr S Aureus 11/14/19 00:45 Urine For Antigen Detection Legionella Antigen - Final 11/14/19 00:45 Urine For Antigen Detection Streptococcus pneumoniae Antigen (M - Final -ON VANCO -tylenol for temp >100F Code(s): A41.9 - SEPSIS, UNSPECIFIED ORGANISM (4) Dementia Assessment/Plan: -Neurology consult -Head CT scan shows moderate atrophy, no gross evidence of a focal intracranial lesion or hemorrhage -Namenda Code(s): F03.90 - UNSPECIFIED DEMENTIA WITHOUT BEHAVIORAL DISTURBANCE (5) HTN (hypertension) Assessment/Plan: -low Na diet Code(s): I10 - ESSENTIAL (PRIMARY) HYPERTENSION
[2019-11-21 07:55] LABS: ALBUMIN 1.6 g/dl (3.4-5.0); BILIRUBIN,TOTAL 1.3 mg/dL (0.2-1); BLOOD UREA NITROGEN 91.9 mg/dL (7-18); CALCIUM 7.7 mg/dL (8.5-10.1); CREATININE 4.6 mg/dL (0.55-1.3); POTASSIUM 4.4 mmol/L (3.5-5.1); TOT PROT 6.1 g/dl (6.4-8.2)
[2019-11-21] MEDS ORDERED: PT OWN MED DRAWER 7, Y5N ONE ×3 (08:35→21:12)
[2019-11-21] MEDS: WATER IVPB SCH ×2 (09:42→21:15)
[2019-11-21] MEDS: CEFTAROLINE FOSAMIL ACETATE IVPB SCH ×2 (09:42→21:15)
[2019-11-21] MEDS: DEXTROSE 5% IVPB SCH ×2 (09:42→21:15)
[2019-11-21] MEDS: ASPIRIN 81 MG CHEWABLE TABLETS PO SCH (09:46)
[2019-11-21] MEDS: TAMSULOSIN HCL 0.4 MG CAP PO SCH (09:46)
[2019-11-21 10:07] LABS: ANTIGLOMERULAR BASEMENT MEN.AB 4 units (0-20)
[2019-11-21] MEDS: DAPTOMYCIN 500 MG in SODIUM CHLORIDE 50 ML IVPB SCH (10:35)
[2019-11-21] MEDS: INSULIN (LEVEMIR) 100 UNITS/ML UNITS SQ SCH ×2 (11:08→21:38)
[2019-11-21] MEDS: MEMANTINE HCL 5 MG TABLET (UD) PO SCH ×2 (11:10→21:15)
--- NOTE | 2019-11-21 14:48 | PN ---
Progress Note, Physician History of Present Illness: Pt seen and examined at bedside. No great change in clinicl status. - Current Medication List Current Medications: Active Medications Acetaminophen (Tylenol Suppository -) 650 mg [place] Q6H PRN PRN Reason: FEVER Last Admin: 11/20/19 07:05 Dose: 650 mg Aspirin (Asa -) 81 mg PO DAILY [facility] Last Admin: 11/21/19 09:46 Dose: 81 mg Atorvastatin Calcium (Lipitor -) 10 mg PO HS [facility] Last Admin: 11/20/19 22:52 Dose: 10 mg Ceftaroline Fosamil 400 mg/ (Dextrose) 100 mls @ 200 mls/hr IVPB BID [facility]; Protocol Last Admin: 11/21/19 09:42 Dose: 200 mls/hr Daptomycin 500 mg/ Sodium (Chloride) 50 mls @ 100 mls/hr IVPB Q48H [facility]; Protocol Last Admin: 11/21/19 10:35 Dose: 100 mls/hr Dextrose (D5w -) 1,000 mls @ 100 mls/hr IV .Q10H [facility] Last Admin: 11/20/19 22:27 Dose: 100 mls/hr Insulin Aspart (Novolog Vial Sliding Scale -) 1 vial SQ ACHS [facility]; Protocol Last Admin: 11/21/19 11:06 Dose: 10 units Insulin Detemir (Levemir Vial) 10 units SQ BID@0700,2200 [facility] Last Admin: 11/21/19 11:08 Dose: 10 units Memantine (Namenda -) 5 mg PO BID [facility] Last Admin: 11/21/19 11:10 Dose: 5 mg Tamsulosin HCl (Flomax -) 0.4 mg PO DAILY@0830 [facility] Last Admin: 11/21/19 09:46 Dose: 0.4 mg - Objective Vital Signs: Vital Signs Temperature 98.6 F 11/21/19 13:43 Pulse Rate 90 11/21/19 13:43 Respiratory Rate 20 11/21/19 13:43 Blood Pressure 102/46 L 11/21/19 13:43 O2 Sat by Pulse Oximetry (%) 96 11/21/19 09:00 Constitutional: Yes: Calm Eyes: Yes: Conjunctiva Clear HENT: Yes: Atraumatic Neck: Yes: Supple Cardiovascular: Yes: S1, S2 Respiratory: Yes: CTA Bilaterally Gastrointestinal: Yes: Soft Genitourinary: Yes: Incontinence Musculoskeletal: Yes: Muscle Weakness Edema: No Neurological: Yes: Lethargy Labs: CBC, BMP 11/20/19 06:35 11/21/19 05:35 INR, PTT INR 1.31 (0.83-1.09) H 11/13/19 21:30 Problem List - Problems (1) VIJAY (acute kidney injury) Code(s): N17.9 - ACUTE KIDNEY FAILURE, UNSPECIFIED (2) Dementia Code(s): F03.90 - UNSPECIFIED DEMENTIA WITHOUT BEHAVIORAL DISTURBANCE Assessment/Plan Current Medications Generic Name Dose Route Start Last Admin Trade Name Freq PRN Reason Stop Dose Admin Acetaminophen 650 mg 11/15/19 06:23 11/20/19 07:05 Tylenol Suppository - OK 650 mg Q6H PRN Administration FEVER Aspirin 81 mg 11/15/19 10:00 11/21/19 09:46 Asa - PO 81 mg DAILY [facility] Administration Atorvastatin Calcium 10 mg 11/14/19 22:00 11/20/19 22:52 Lipitor - PO 10 mg HS [facility] Administration Ceftaroline Fosamil 400 mg/ 100 mls @ 200 mls/hr 11/15/19 14:45 11/21/19 09: 42 Dextrose IVPB 200 mls/hr BID [facility] Administration Protocol Daptomycin 500 mg/ Sodium 50 mls @ 100 mls/hr 11/17/19 10:30 11/21/19 10:35 Chloride IVPB 100 mls/hr Q48H [facility] Administration Protocol Dextrose 1,000 mls @ 100 mls/hr 11/20/19 11:45 11/20/19 22:27 D5w - IV 100 mls/hr .Q10H [facility] Administration Insulin Aspart 1 vial 11/18/19 22:00 11/21/19 11:06 Novolog Vial Sliding Scale - SQ 10 units ACHS [facility] Administration Protocol Insulin Detemir 10 units 11/21/19 10:45 11/21/19 11:08 Levemir Vial SQ 10 units BID@0700,2200 [facility] Administration Memantine 5 mg 11/14/19 10:00 11/21/19 11:10 Namenda - PO 5 mg BID [facility] Administration Tamsulosin HCl 0.4 mg 11/19/19 08:30 11/21/19 09:46 Flomax - PO 0.4 mg DAILY@0830 [facility] Administration Laboratory Tests 11/19/19 11/19/19 06:10 06:10 ARACELI M-Nathan Not observed DERRICK Screen Negative c-ANCA Pending Proteinase 3 (PR3) Pending p-ANCA Pending Atypical p-ANCA Pending Myeloperoxidase Ab Pending Double Strand DNA Ab <1 Glomerular Base Memb Ab 4 Impression 1. VIJAY 2. lactic acidosis 3. bacteremia 4. sepsis 5. dementia 6. hx htn 7. hypernatremia Plan - sodium improvibng - will change fluids to 1/2 ns as he is hyperglycemic - repeat labs in am - renal function improving, will monitor - monitor sodium
[2019-11-21] MEDS ORDERED: SODIUM CHLORIDE 0.45% 1,000 ML IV SCH (15:00)
--- NOTE | 2019-11-21 18:08 | PN ---
Progress Note (short form) - Note Progress Note: remains lethargic Vital Signs Period Temp Pulse Resp BP Sys/[place] Pulse Ox Last 24 Hr 98.1 F-99.7 F 76-90 16-20 102-128/46-71 95-96 cor-rrr lungs decreased bs at bases abd soft,nt ext right arm unchanged CBC, BMP 11/20/19 06:35 11/21/19 05:35 Microbiology 11/20/19 14:20 Blood - Peripheral Venous Blood Culture - Preliminary NO GROWTH OBTAINED AFTER 24 HOURS, INCUBATION TO CONTINUE FOR 4 DAYS. 11/20/19 14:15 Blood - Peripheral Venous Blood Culture - Preliminary NO GROWTH OBTAINED AFTER 24 HOURS, INCUBATION TO CONTINUE FOR 4 DAYS. 11/17/19 06:45 Blood - Peripheral Venous Blood Culture - Preliminary NO GROWTH OBTAINED AFTER 96 HOURS, INCUBATION TO CONTINUE FOR 1 DAYS. 11/17/19 06:40 Blood - Peripheral Venous Blood Culture - Preliminary NO GROWTH OBTAINED AFTER 96 HOURS, INCUBATION TO CONTINUE FOR 1 DAYS. 11/15/19 05:40 Blood - Peripheral Venous Blood Culture - Final S Aureus 11/15/19 05:45 Blood - Peripheral Venous Blood Culture - Final S Aureus 11/13/19 21:30 Blood - Peripheral Venous Blood Culture - Final Presumptive Mrsa (Pbp2a Pos) 11/14/19 00:45 Urine - Urine Clean Catch Urine Culture - Final S Aureus 11/13/19 21:30 Blood - Peripheral Venous Blood Culture - Final S Aureus 11/14/19 00:45 Urine For Antigen Detection Legionella Antigen - Final 11/14/19 00:45 Urine For Antigen Detection Streptococcus pneumoniae Antigen (M - Final a/p MRSA bacteremia-r/o endocarditis with underlying continue daptomycin and ceftaroline echo noted esr/crp noted-repeat in am ct scan chest abd/pelvis- unremarkable duplex right arm no dvt will require assisted iv antibiotics when ready for discharge +troponins- NSTEMI- per cardiology VIJAY- creatinine may have peaked, starting to trend down Problem List - Problems (1) Sepsis Code(s): A41.9 - SEPSIS, UNSPECIFIED ORGANISM Qualifiers: Sepsis type: sepsis due to unspecified organism Sepsis acute organ dysfunction status: unspecified Qualified Code(s): A41.9 - Sepsis, unspecified organism (2) Gram-positive bacteremia Code(s): R78.81 - BACTEREMIA (3) NSTEMI (non-ST elevated myocardial infarction) Code(s): I21.4 - NON-ST ELEVATION (NSTEMI) MYOCARDIAL INFARCTION (4) VIJAY (acute kidney injury) Code(s): N17.9 - ACUTE KIDNEY FAILURE, UNSPECIFIED
[2019-11-21 18:12] LABS: ATYPICAL pANCA <1:20 titer (Neg:<1:20); C-ANCA <1:20 titer (Neg:<1:20)
[2019-11-21] MEDS: ATORVASTATIN CA 10 MG TABLET (FP) PO SCH (21:15)
[2019-11-22] MEDS: INSULIN (LEVEMIR) 100 UNITS/ML UNITS SQ SCH ×2 (06:06→22:30)
[2019-11-22] MEDS: INSULIN SLIDING SCALE (NOVOLOG) 1 VIAL SQ SCH ×4 (06:06→22:30)
[2019-11-22 06:53] LABS: BASO % 0.3 % (0-2.0); EOS % 2.8 % (0-4.5); HEMATOCRIT 30.3 % (35.4-49); HEMOGLOBIN 9.7 GM/dL (11.7-16.9); LYMPH % 6.5 % (8-40); MCH 28.5 pg (25.7-33.7); MEAN PLT VOLUME 10.5 fl (7.5-11.1); MONO % 5.8 % (3.8-10.2); NEUT % 84.6 % (42.8-82.8); PLATELET COUNT 179 K/MM3 (134-434); RDW 14.5 % (11.9-15.9); WHITE BLOOD COUNT 23.6 K/mm3 (4.0-10.0)
[2019-11-22] MEDS ORDERED: INSULIN SLIDING SCALE (NOVOLOG) 1 VIAL SQ ONE (07:11)
[2019-11-22] MEDS ORDERED: INSULIN (LEVEMIR) 100 UNITS/ML UNITS SQ ONE (07:11)
[2019-11-22 07:50] LABS: ALBUMIN 1.6 g/dl (3.4-5.0); BILIRUBIN,TOTAL 0.8 mg/dL (0.2-1); BLOOD UREA NITROGEN 79.4 mg/dL (7-18); CALCIUM 8.4 mg/dL (8.5-10.1); CREATININE 3.9 mg/dL (0.55-1.3); POTASSIUM 4.2 mmol/L (3.5-5.1); TOT PROT 6.2 g/dl (6.4-8.2)
--- NOTE | 2019-11-22 08:02 | PN ---
Progress Note, Physician - Current Medication List Current Medications: Active Medications Acetaminophen (Tylenol Suppository -) 650 mg [place] Q6H PRN PRN Reason: FEVER Last Admin: 11/20/19 07:05 Dose: 650 mg Aspirin (Asa -) 81 mg PO DAILY [facility] Last Admin: 11/21/19 09:46 Dose: 81 mg Atorvastatin Calcium (Lipitor -) 10 mg PO HS [facility] Last Admin: 11/21/19 21:15 Dose: 10 mg Ceftaroline Fosamil 400 mg/ (Dextrose) 100 mls @ 200 mls/hr IVPB BID [facility]; Protocol Last Admin: 11/21/19 21:15 Dose: 200 mls/hr Daptomycin 500 mg/ Sodium (Chloride) 50 mls @ 100 mls/hr IVPB Q48H [facility]; Protocol Last Admin: 11/21/19 10:35 Dose: 100 mls/hr Sodium Chloride (1/2 Normal Saline) 1,000 mls @ 100 mls/hr IV ASDIR [facility] Last Admin: 11/21/19 14:53 Dose: 100 mls/hr Insulin Aspart (Novolog Vial Sliding Scale -) 1 vial SQ ACHS [facility]; Protocol Last Admin: 11/22/19 06:06 Dose: 2 units Insulin Detemir (Levemir Vial) 10 units SQ BID@0700,2200 [facility] Last Admin: 11/22/19 06:06 Dose: 10 units Memantine (Namenda -) 5 mg PO BID [facility] Last Admin: 11/21/19 21:15 Dose: 5 mg Tamsulosin HCl (Flomax -) 0.4 mg PO DAILY@0830 [facility] Last Admin: 11/21/19 09:46 Dose: 0.4 mg - Objective Vital Signs: Vital Signs Temperature 98.1 F 11/22/19 05:00 Pulse Rate 81 11/22/19 05:00 Respiratory Rate 16 11/22/19 05:00 Blood Pressure 112/65 11/22/19 05:00 O2 Sat by Pulse Oximetry (%) 96 11/21/19 21:00 Cardiovascular: Yes: S1, S2 Respiratory: Yes: Regular, CTA Bilaterally Gastrointestinal: Yes: Normal Bowel Sounds, Soft Labs: CBC, BMP 11/22/19 06:00 11/22/19 06:00 INR, PTT INR 1.31 (0.83-1.09) H 11/13/19 21:30 Assessment/Plan - Problems (1) VIJAY (acute kidney injury) Assessment/Plan: -With Hypernatremia--on IVF 1/2 ns -monitor renal function daily -Renal consult on board Code(s): N17.9 - ACUTE KIDNEY FAILURE, UNSPECIFIED (2) DM Assessment/Plan: -SS -ADD LEVEMIR -ENDO (3) Sepsis Assessment/Plan: -ID consult -Leukocytosis -afebrile -Ct scan-no consolidation or intrabdominal acute process -Urine Legionella negative -UC and BC results Microbiology 11/17/19 06:45 Blood - Peripheral Venous Blood Culture - Preliminary NO GROWTH OBTAINED AFTER 72 HOURS, INCUBATION TO CONTINUE FOR 2 DAYS. 11/17/19 06:40 Blood - Peripheral Venous Blood Culture - Preliminary NO GROWTH OBTAINED AFTER 72 HOURS, INCUBATION TO CONTINUE FOR 2 DAYS. 11/15/19 05:40 Blood - Peripheral Venous Blood Culture - Final S Aureus 11/15/19 05:45 Blood - Peripheral Venous Blood Culture - Final S Aureus 11/13/19 21:30 Blood - Peripheral Venous Blood Culture - Final Presumptive Mrsa (Pbp2a Pos) 11/14/19 00:45 Urine - Urine Clean Catch Urine Culture - Final S Aureus 11/13/19 21:30 Blood - Peripheral Venous Blood Culture - Final S Aureus 11/14/19 00:45 Urine For Antigen Detection Legionella Antigen - Final 11/14/19 00:45 Urine For Antigen Detection Streptococcus pneumoniae Antigen (M - Final -ON VANCO -tylenol for temp >100F Code(s): A41.9 - SEPSIS, UNSPECIFIED ORGANISM (4) Dementia Assessment/Plan: -Neurology consult -Head CT scan shows moderate atrophy, no gross evidence of a focal intracranial lesion or hemorrhage -Namenda Code(s): F03.90 - UNSPECIFIED DEMENTIA WITHOUT BEHAVIORAL DISTURBANCE (5) HTN (hypertension) Assessment/Plan: -low Na diet Code(s): I10 - ESSENTIAL (PRIMARY) HYPERTENSION DC TO [facility] IF CLEARED BY RENAL
[2019-11-22] MEDS: TAMSULOSIN HCL 0.4 MG CAP PO SCH (09:20)
[2019-11-22] MEDS ORDERED: DEXTROSE 5%-WATER - 1,000 ML IV SCH (09:30)
[2019-11-22] MEDS: DEXTROSE 5% IVPB SCH ×2 (10:20→22:31)
[2019-11-22] MEDS: WATER IVPB SCH ×2 (10:20→22:31)
[2019-11-22] MEDS: CEFTAROLINE FOSAMIL ACETATE IVPB SCH ×2 (10:20→22:31)
[2019-11-22 11:18] LABS: ANISOCYTOSIS 1+; MACROCYTOSIS 0; PLATELET ESTIMATE NORMAL
[2019-11-22] MEDS: ASPIRIN 81 MG CHEWABLE TABLETS PO SCH (11:20)
[2019-11-22] MEDS: MEMANTINE HCL 5 MG TABLET (UD) PO SCH ×2 (11:20→22:31)
--- NOTE | 2019-11-22 15:37 | PN ---
Progress Note, Physician History of Present Illness: Pt seen and examined at bedside. No great change in status. He does wake up to eat. - Current Medication List Current Medications: Active Medications Acetaminophen (Tylenol Suppository -) 650 mg [place] Q6H PRN PRN Reason: FEVER Last Admin: 11/20/19 07:05 Dose: 650 mg Aspirin (Asa -) 81 mg PO DAILY [facility] Last Admin: 11/22/19 11:20 Dose: 81 mg Atorvastatin Calcium (Lipitor -) 10 mg PO HS [facility] Last Admin: 11/21/19 21:15 Dose: 10 mg Ceftaroline Fosamil 400 mg/ (Dextrose) 100 mls @ 200 mls/hr IVPB BID [facility]; Protocol Last Admin: 11/22/19 10:20 Dose: 200 mls/hr Daptomycin 500 mg/ Sodium (Chloride) 50 mls @ 100 mls/hr IVPB Q48H [facility]; Protocol Last Admin: 11/21/19 10:35 Dose: 100 mls/hr Dextrose (D5w -) 1,000 mls @ 83 mls/hr IV ASDIR [facility] Last Admin: 11/22/19 11:21 Dose: 83 mls/hr Insulin Aspart (Novolog Vial Sliding Scale -) 1 vial SQ ACHS [facility]; Protocol Last Admin: 11/22/19 13:20 Dose: Not Given Insulin Detemir (Levemir Vial) 10 units SQ BID@0700,2200 [facility] Last Admin: 11/22/19 06:06 Dose: 10 units Memantine (Namenda -) 5 mg PO BID [facility] Last Admin: 11/22/19 11:20 Dose: 5 mg Tamsulosin HCl (Flomax -) 0.4 mg PO DAILY@0830 [facility] Last Admin: 11/22/19 09:20 Dose: 0.4 mg - Objective Vital Signs: Vital Signs Temperature 99.6 F 11/22/19 15:08 Pulse Rate 76 11/22/19 15:08 Respiratory Rate 18 11/22/19 15:08 Blood Pressure 126/66 11/22/19 15:08 O2 Sat by Pulse Oximetry (%) 96 11/22/19 08:57 Constitutional: Yes: Calm Eyes: Yes: Conjunctiva Clear HENT: Yes: Atraumatic Neck: Yes: Supple Cardiovascular: Yes: S1, S2 Respiratory: Yes: CTA Bilaterally Gastrointestinal: Yes: Soft Genitourinary: Yes: Incontinence Musculoskeletal: Yes: WNL Edema: No Neurological: Yes: Lethargy Labs: CBC, BMP 11/22/19 06:00 11/22/19 06:00 INR, PTT INR 1.31 (0.83-1.09) H 11/13/19 21:30 Problem List - Problems (1) VIJAY (acute kidney injury) Code(s): N17.9 - ACUTE KIDNEY FAILURE, UNSPECIFIED (2) Dementia Code(s): F03.90 - UNSPECIFIED DEMENTIA WITHOUT BEHAVIORAL DISTURBANCE Assessment/Plan Current Medications Generic Name Dose Route Start Last Admin Trade Name Freq PRN Reason Stop Dose Admin Acetaminophen 650 mg 11/15/19 06:23 11/20/19 07:05 Tylenol Suppository - MA 650 mg Q6H PRN Administration FEVER Aspirin 81 mg 11/15/19 10:00 11/22/19 11:20 Asa - PO 81 mg DAILY [facility] Administration Atorvastatin Calcium 10 mg 11/14/19 22:00 11/21/19 21:15 Lipitor - PO 10 mg HS [facility] Administration Ceftaroline Fosamil 400 mg/ 100 mls @ 200 mls/hr 11/15/19 14:45 11/22/19 10: 20 Dextrose IVPB 200 mls/hr BID [facility] Administration Protocol Daptomycin 500 mg/ Sodium 50 mls @ 100 mls/hr 11/17/19 10:30 11/21/19 10:35 Chloride IVPB 100 mls/hr Q48H [facility] Administration Protocol Dextrose 1,000 mls @ 83 mls/hr 11/22/19 09:30 11/22/19 11:21 D5w - IV 83 mls/hr ASDIR [facility] Administration Insulin Aspart 1 vial 11/18/19 22:00 11/22/19 13:20 Novolog Vial Sliding Scale - SQ Not Given ACHS [facility] Protocol Insulin Detemir 10 units 11/21/19 10:45 11/22/19 06:06 Levemir Vial SQ 10 units BID@0700,2200 [facility] Administration Memantine 5 mg 11/14/19 10:00 11/22/19 11:20 Namenda - PO 5 mg BID [facility] Administration Tamsulosin HCl 0.4 mg 11/19/19 08:30 11/22/19 09:20 Flomax - PO 0.4 mg DAILY@0830 [facility] Administration Laboratory Tests 11/19/19 11/19/19 06:10 06:10 ARACELI M-Nathan Not observed DERRICK Screen Negative c-ANCA <1:20 Proteinase 3 (PR3) <3.5 p-ANCA <1:20 Atypical p-ANCA <1:20 Myeloperoxidase Ab <9.0 Double Strand DNA Ab <1 Glomerular Base Memb Ab 4 Impression 1. VIJAY 2. lactic acidosis 3. bacteremia 4. sepsis 5. dementia 6. hx htn 7. hypernatremia Plan - will change fluids back to d5w as sodium rises with 1/2 ns - renal function is improving - repeat labs in am - discussed with medical team - serologies negative - avoid nsaids
--- NOTE | 2019-11-22 16:43 | PN ---
Progress Note (short form) - Note Progress Note: more alert eating well per nurse- no diarrhea Vital Signs Period Temp Pulse Resp BP Sys/[place] Pulse Ox Last 24 Hr 97.8 F-99.6 F 73-91 16-18 112-158/53-70 96-96 cor-rrr lungs decreased bs at bases abd soft, nt ext no edema CBC, BMP 11/22/19 06:00 11/22/19 06:00 Microbiology 11/20/19 14:20 Blood - Peripheral Venous Blood Culture - Preliminary NO GROWTH OBTAINED AFTER 48 HOURS, INCUBATION TO CONTINUE FOR 3 DAYS. 11/20/19 14:15 Blood - Peripheral Venous Blood Culture - Preliminary NO GROWTH OBTAINED AFTER 48 HOURS, INCUBATION TO CONTINUE FOR 3 DAYS. 11/17/19 06:45 Blood - Peripheral Venous Blood Culture - Final NO GROWTH AFTER 5 DAYS INCUBATION 11/17/19 06:40 Blood - Peripheral Venous Blood Culture - Final NO GROWTH AFTER 5 DAYS INCUBATION 11/15/19 05:40 Blood - Peripheral Venous Blood Culture - Final S Aureus 11/15/19 05:45 Blood - Peripheral Venous Blood Culture - Final Mr S Aureus 11/13/19 21:30 Blood - Peripheral Venous Blood Culture - Final Presumptive Mrsa (Pbp2a Pos) 11/14/19 00:45 Urine - Urine Clean Catch Urine Culture - Final Mr S Aureus 11/13/19 21:30 Blood - Peripheral Venous Blood Culture - Final Mr S Aureus 11/14/19 00:45 Urine For Antigen Detection Legionella Antigen - Final 11/14/19 00:45 Urine For Antigen Detection Streptococcus pneumoniae Antigen (M - Final Laboratory Tests 11/15/19 11/22/19 05:40 06:00 C-Reactive Protein 33.4 H 9.9 H Microbiology 11/20/19 14:20 Blood - Peripheral Venous Blood Culture - Preliminary NO GROWTH OBTAINED AFTER 48 HOURS, INCUBATION TO CONTINUE FOR 3 DAYS. 11/20/19 14:15 Blood - Peripheral Venous Blood Culture - Preliminary NO GROWTH OBTAINED AFTER 48 HOURS, INCUBATION TO CONTINUE FOR 3 DAYS. 11/17/19 06:45 Blood - Peripheral Venous Blood Culture - Final NO GROWTH AFTER 5 DAYS INCUBATION 11/17/19 06:40 Blood - Peripheral Venous Blood Culture - Final NO GROWTH AFTER 5 DAYS INCUBATION 11/15/19 05:40 Blood - Peripheral Venous Blood Culture - Final Mr S Aureus 11/15/19 05:45 Blood - Peripheral Venous Blood Culture - Final Mr S Aureus 11/13/19 21:30 Blood - Peripheral Venous Blood Culture - Final Presumptive Mrsa (Pbp2a Pos) 11/14/19 00:45 Urine - Urine Clean Catch Urine Culture - Final S Aureus 11/13/19 21:30 Blood - Peripheral Venous Blood Culture - Final S Aureus 11/14/19 00:45 Urine For Antigen Detection Legionella Antigen - Final 11/14/19 00:45 Urine For Antigen Detection Streptococcus pneumoniae Antigen (M - Final a/p MRSA bacteremia-r/o endocarditis with underlying continue daptomycin and ceftaroline echo noted esr/crp n ct scan chest abd/pelvis- unremarkable duplex right arm no dvt will require skilled nursing iv antibiotics when ready for discharge repeat blood cultures are negative crp is trending down leukocytosis- ?aspiration- will get cxray, nurse reports no diarrhea +troponins- NSTEMI- per cardiology VIJAY- renal function improving Problem List - Problems (1) Sepsis Code(s): A41.9 - SEPSIS, UNSPECIFIED ORGANISM Qualifiers: Sepsis type: sepsis due to unspecified organism Sepsis acute organ dysfunction status: unspecified Qualified Code(s): A41.9 - Sepsis, unspecified organism (2) Gram-positive bacteremia Code(s): R78.81 - BACTEREMIA (3) NSTEMI (non-ST elevated myocardial infarction) Code(s): I21.4 - NON-ST ELEVATION (NSTEMI) MYOCARDIAL INFARCTION (4) VIJAY (acute kidney injury) Code(s): N17.9 - ACUTE KIDNEY FAILURE, UNSPECIFIED
[2019-11-22] MEDS: DEXTROSE 5%-WATER - 1,000 ML IV SCH ×2 (18:36→22:30)
--- NOTE | 2019-11-22 18:51 | CONSULT ---
Consult Consult Specialty:: Endocrine Referred by:: Elina Ellis MD Reason for Consultation:: DMT2 - History of Present Illness Chief Complaint: confused and lethargic History of Present Illness: 78 y/o man from [facility] with a PMHx of DMT2, HTN, Dementia. Who presented unresponsive, eyes opened, staring straight ahead. MA notes states the episode lasted 15 minutes before the patient became more responsive. Per MA, they deny any shaking activity. Pt is a poor historian due to dementia.The patient denies chest pain, shortness of breath, headache and dizziness. Denies fever, chills, cough, nausea, vomiting, diarrhea and constipation. - Past Medical History [employer]: Yes: Dementia Cardio/Vascular: Yes: Aortic Stenosis, HTN Psych: Yes: Other Endocrine: Yes: Diabetes Mellitus - Alcohol/Substance Use Hx Alcohol Use: No History of Substance Use: reports: None - Smoking History Smoking history: Never smoked - Social History ADL: Support Services History of Recent Travel: No Home Medications - Allergies Allergies/Adverse Reactions: Allergies Allergy/AdvReac Type Severity Reaction Status Date / Time No Known Allergies Allergy Verified 01/28/18 13:56 - Home Medications Home Medications: Ambulatory Orders Insulin (Levemir) [Levemir Vial] 12 units SQ AM ml 01/30/18 Donepezil HCl [Aricept -] 10 mg PO HS 11/14/19 Lisinopril 5 mg PO DAILY 11/14/19 Memantine HCl [Namenda -] 5 mg PO BID 11/14/19 Review of Systems Unable to obtain ROS, reason: confused and lethargic - Review of Systems Constitutional: reports: Lethargy, Weakness Eyes: reports: No Symptoms Physical Exam Vital Signs: Vital Signs Temperature 99.6 F 11/22/19 15:08 Pulse Rate 76 11/22/19 15:08 Respiratory Rate 18 11/22/19 15:08 Blood Pressure 126/66 11/22/19 15:08 O2 Sat by Pulse Oximetry (%) 96 11/22/19 08:57 Labs: CBC, BMP 11/22/19 06:00 11/22/19 06:00 Problem List - Problems (1) VIJAY (acute kidney injury) Code(s): N17.9 - ACUTE KIDNEY FAILURE, UNSPECIFIED (2) Elevated troponin Code(s): R79.89 - OTHER SPECIFIED ABNORMAL FINDINGS OF BLOOD CHEMISTRY (3) Gram-positive bacteremia Code(s): R78.81 - BACTEREMIA (4) Sepsis Code(s): A41.9 - SEPSIS, UNSPECIFIED ORGANISM Qualifiers: Sepsis type: sepsis due to unspecified organism Sepsis acute organ dysfunction status: unspecified Qualified Code(s): A41.9 - Sepsis, unspecified organism (5) Dementia Code(s): F03.90 - UNSPECIFIED DEMENTIA WITHOUT BEHAVIORAL DISTURBANCE (6) HTN (hypertension) Code(s): I10 - ESSENTIAL (PRIMARY) HYPERTENSION Assessment/Plan Current Active Problems VIJAY (acute kidney injury) (Acute) Elevated troponin (Acute) Gram-positive bacteremia (Acute) Sepsis (Acute) UTI (urinary tract infection) (Acute) Abnormal Lab Results 11/22/19 11/22/19 11/22/19 06:00 06:00 06:00 WBC 23.6 H RBC 3.40 L Hgb 9.7 L Hct 30.3 L Absolute Neuts (auto) 20.0 H Neutrophils % 84.6 H Lymphocytes % 6.5 L Lymphocytes % (Manual) 5.1 L D ESR Sodium 159 H Chloride 130 H Anion Gap 7 L BUN 79.4 H Creatinine 3.9 H Random Glucose 206 H Calcium 8.4 L Alkaline Phosphatase 169 H C-Reactive Protein 9.9 H Total Protein 6.2 L Albumin 1.6 L 11/22/19 06:00 WBC RBC Hgb Hct Absolute Neuts (auto) Neutrophils % Lymphocytes % Lymphocytes % (Manual) ESR 106 H Sodium Chloride Anion Gap BUN Creatinine Random Glucose Calcium Alkaline Phosphatase C-Reactive Protein Total Protein Albumin Abnormal Lab Results 11/22/19 11/22/19 11/22/19 06:00 06:00 06:00 WBC 23.6 H RBC 3.40 L Hgb 9.7 L Hct 30.3 L Absolute Neuts (auto) 20.0 H Neutrophils % 84.6 H Lymphocytes % 6.5 L Lymphocytes % (Manual) 5.1 L D ESR Sodium 159 H Chloride 130 H Anion Gap 7 L BUN 79.4 H Creatinine 3.9 H Random Glucose 206 H Calcium 8.4 L Alkaline Phosphatase 169 H C-Reactive Protein 9.9 H Total Protein 6.2 L Albumin 1.6 L 11/22/19 06:00 WBC RBC Hgb Hct Absolute Neuts (auto) Neutrophils % Lymphocytes % Lymphocytes % (Manual) ESR 106 H Sodium Chloride Anion Gap BUN Creatinine Random Glucose Calcium Alkaline Phosphatase C-Reactive Protein Total Protein Albumin plan: bgm qid ac novolog scale levemir daily sale hbaic ck tsh free t4
[2019-11-22] MEDS ORDERED: PT OWN MED DRAWER 7, Y5N ONE (21:08)
[2019-11-22] MEDS: ATORVASTATIN CA 10 MG TABLET (FP) PO SCH (22:31)
[2019-11-23] MEDS: INSULIN SLIDING SCALE (NOVOLOG) 1 VIAL SQ SCH ×4 (06:19→21:52)
[2019-11-23] MEDS: INSULIN (LEVEMIR) 100 UNITS/ML UNITS SQ SCH ×2 (06:19→21:52)
[2019-11-23 08:11] LABS: CALCIUM 7.9 mg/dL (8.5-10.1); CREATININE 3.7 mg/dL (0.55-1.3); POTASSIUM 4.1 mmol/L (3.5-5.1)
[2019-11-23] MEDS: TAMSULOSIN HCL 0.4 MG CAP PO SCH (09:04)
[2019-11-23] MEDS: DEXTROSE 5%-WATER - 1,000 ML IV SCH (09:16)
[2019-11-23] MEDS ORDERED: PT OWN MED DRAWER 7, Y5N ONE ×3 (09:40→21:20)
[2019-11-23] MEDS: CEFTAROLINE FOSAMIL ACETATE IVPB SCH ×2 (09:42→21:47)
[2019-11-23] MEDS: ASPIRIN 81 MG CHEWABLE TABLETS PO SCH (09:42)
[2019-11-23] MEDS: DEXTROSE 5% IVPB SCH ×2 (09:42→21:47)
[2019-11-23] MEDS: WATER IVPB SCH ×2 (09:42→21:47)
[2019-11-23] MEDS: MEMANTINE HCL 5 MG TABLET (UD) PO SCH ×2 (09:48→21:47)
[2019-11-23] MEDS: DAPTOMYCIN 500 MG in SODIUM CHLORIDE 50 ML IVPB SCH (10:54)
--- NOTE | 2019-11-23 11:09 | PN ---
Progress Note, Physician History of Present Illness: LETHARGIC NO ACUTE DISTRESS WBC ELEVATED - Current Medication List Current Medications: Active Medications Acetaminophen (Tylenol Suppository -) 650 mg [place] Q6H PRN PRN Reason: FEVER Last Admin: 11/20/19 07:05 Dose: 650 mg Aspirin (Asa -) 81 mg PO DAILY [facility] Last Admin: 11/23/19 09:42 Dose: 81 mg Atorvastatin Calcium (Lipitor -) 10 mg PO HS [facility] Last Admin: 11/22/19 22:31 Dose: 10 mg Ceftaroline Fosamil 400 mg/ (Dextrose) 100 mls @ 200 mls/hr IVPB BID [facility]; Protocol Last Admin: 11/23/19 09:42 Dose: 200 mls/hr Daptomycin 500 mg/ Sodium (Chloride) 50 mls @ 100 mls/hr IVPB Q48H [facility]; Protocol Last Admin: 11/23/19 10:54 Dose: 100 mls/hr Dextrose (D5w -) 1,000 mls @ 100 mls/hr IV ASDIR [facility] Last Admin: 11/23/19 09:16 Dose: 100 mls/hr Insulin Aspart (Novolog Vial Sliding Scale -) 1 vial SQ ACHS [facility]; Protocol Last Admin: 11/23/19 06:19 Dose: 2 units Insulin Detemir (Levemir Vial) 10 units SQ BID@0700,2200 [facility] Last Admin: 11/23/19 06:19 Dose: 10 units Memantine (Namenda -) 5 mg PO BID [facility] Last Admin: 11/23/19 09:48 Dose: 5 mg Tamsulosin HCl (Flomax -) 0.4 mg PO DAILY@0830 [facility] Last Admin: 11/23/19 09:04 Dose: 0.4 mg - Objective Vital Signs: Vital Signs Temperature 98.7 F 11/23/19 06:00 Pulse Rate 71 11/23/19 06:00 Respiratory Rate 20 11/23/19 06:00 Blood Pressure 127/66 11/23/19 06:00 O2 Sat by Pulse Oximetry (%) 96 11/22/19 20:19 Constitutional: Yes: Well Nourished Eyes: Yes: Conjunctiva Clear Cardiovascular: Yes: Regular Rate and Rhythm, S1, S2 Respiratory: Yes: Diminished Gastrointestinal: Yes: Normal Bowel Sounds, Soft. No: Tenderness Labs: CBC, BMP 11/22/19 06:00 11/23/19 05:40 INR, PTT INR 1.31 (0.83-1.09) H 11/13/19 21:30 Assessment/Plan MRSA BACTEREMIA R/O ENDOCARDITIS LEUKOCYTOSIS AZOTEMIA CONTINUE DAPTOMYCIN/ CEFTAROLINE
[2019-11-23] MEDS ORDERED: DEXTROSE 5%-WATER - 1,000 ML IV SCH (11:54)
--- NOTE | 2019-11-23 11:55 | PN ---
Progress Note (short form) - Note Progress Note: Renal follow up for VIJAY Coverage for Dr. Parker Seen an examined with the bedside awake, not talking no overnight events on D5W Vital Signs Temperature 98.7 F 11/23/19 06:00 Pulse Rate 71 11/23/19 06:00 Respiratory Rate 20 11/23/19 06:00 Blood Pressure 127/66 11/23/19 06:00 O2 Sat by Pulse Oximetry (%) 96 11/22/19 20:19 Intake & Output 11/20/19 11/21/19 11/22/19 11/23/19 23:59 23:59 23:59 23:59 Intake Total 2790 2660 1910 1060 Output Total 500 Balance 2790 2660 1410 1060 NAD awake and alert Course BS no edema CBC, BMP 11/22/19 06:00 11/23/19 05:40 Current Medications Acetaminophen (Tylenol Suppository -) 650 mg MS Q6H PRN PRN Reason: FEVER Last Admin: 11/20/19 07:05 Dose: 650 mg Aspirin (Asa -) 81 mg PO DAILY [facility] Last Admin: 11/23/19 09:42 Dose: 81 mg Atorvastatin Calcium (Lipitor -) 10 mg PO HS [facility] Last Admin: 11/22/19 22:31 Dose: 10 mg Ceftaroline Fosamil 400 mg/ (Dextrose) 100 mls @ 200 mls/hr IVPB BID [facility]; Protocol Last Admin: 11/23/19 09:42 Dose: 200 mls/hr Daptomycin 500 mg/ Sodium (Chloride) 50 mls @ 100 mls/hr IVPB Q48H [facility]; Protocol Last Admin: 11/23/19 10:54 Dose: 100 mls/hr Dextrose (D5w -) 1,000 mls @ 100 mls/hr IV ASDIR [facility] Last Admin: 11/23/19 09:16 Dose: 100 mls/hr Insulin Aspart (Novolog Vial Sliding Scale -) 1 vial SQ ACHS [facility]; Protocol Last Admin: 11/23/19 06:19 Dose: 2 units Insulin Detemir (Levemir Vial) 10 units SQ BID@0700,2200 [facility] Last Admin: 11/23/19 06:19 Dose: 10 units Memantine (Namenda -) 5 mg PO BID [facility] Last Admin: 11/23/19 09:48 Dose: 5 mg Tamsulosin HCl (Flomax -) 0.4 mg PO DAILY@0830 [facility] Last Admin: 11/23/19 09:04 Dose: 0.4 mg Impression 1. VIJAY 2. lactic acidosis 3. bacteremia 4. sepsis 5. dementia 6. hx htn 7. hypernatremia Plan Renal function improving Serum Na slowly improving will increase D5W to 130cc per hour Trend renal function and electrolyte daily Minh Padilla DO
--- NOTE | 2019-11-23 15:21 | PN ---
Progress Note, Physician Chief Complaint: NSTEMI Sepsis History of Present Illness: Previous notes and events reviewed awake, confused NAD patient had 600cc retained urine on bladder scanner, FC re-inserted leukocytosis afebrile - Current Medication List Current Medications: Active Medications Acetaminophen (Tylenol Suppository -) 650 mg [place] Q6H PRN PRN Reason: FEVER Last Admin: 11/20/19 07:05 Dose: 650 mg Aspirin (Asa -) 81 mg PO DAILY [facility] Last Admin: 11/23/19 09:42 Dose: 81 mg Atorvastatin Calcium (Lipitor -) 10 mg PO HS [facility] Last Admin: 11/22/19 22:31 Dose: 10 mg Ceftaroline Fosamil 400 mg/ (Dextrose) 100 mls @ 200 mls/hr IVPB BID [facility]; Protocol Last Admin: 11/23/19 09:42 Dose: 200 mls/hr Daptomycin 500 mg/ Sodium (Chloride) 50 mls @ 100 mls/hr IVPB Q48H [facility]; Protocol Last Admin: 11/23/19 10:54 Dose: 100 mls/hr Dextrose (D5w -) 1,000 mls @ 130 mls/hr IV ASDIR [facility] Last Admin: 11/23/19 12:11 Dose: 130 mls/hr Insulin Aspart (Novolog Vial Sliding Scale -) 1 vial SQ ACHS [facility]; Protocol Last Admin: 11/23/19 12:08 Dose: 5 units Insulin Detemir (Levemir Vial) 10 units SQ BID@0700,2200 [facility] Last Admin: 11/23/19 06:19 Dose: 10 units Memantine (Namenda -) 5 mg PO BID [facility] Last Admin: 11/23/19 09:48 Dose: 5 mg Tamsulosin HCl (Flomax -) 0.4 mg PO DAILY@0830 [facility] Last Admin: 11/23/19 09:04 Dose: 0.4 mg - Objective Vital Signs: Vital Signs Temperature 97.8 F 11/23/19 14:00 Pulse Rate 74 11/23/19 14:00 Respiratory Rate 16 11/23/19 14:00 Blood Pressure 103/58 L 11/23/19 14:00 O2 Sat by Pulse Oximetry (%) 96 11/23/19 09:00 Constitutional: Yes: No Distress, Calm Eyes: Yes: Conjunctiva Clear HENT: Yes: Atraumatic Cardiovascular: Yes: Regular Rate and Rhythm Respiratory: Yes: Regular, Diminished Gastrointestinal: Yes: Normal Bowel Sounds, Soft Genitourinary: Yes: Ford Present Musculoskeletal: Yes: Muscle Weakness Extremities: Yes: WNL Edema: No Neurological: Yes: Alert, Pre-Existing Deficit Psychiatric: Yes: Alert Labs: CBC, BMP 11/22/19 06:00 11/23/19 05:40 INR, PTT INR 1.31 (0.83-1.09) H 11/13/19 21:30 Microbiology 11/20/19 14:20 Blood - Peripheral Venous Blood Culture - Preliminary NO GROWTH OBTAINED AFTER 72 HOURS, INCUBATION TO CONTINUE FOR 2 DAYS. 11/20/19 14:15 Blood - Peripheral Venous Blood Culture - Preliminary NO GROWTH OBTAINED AFTER 72 HOURS, INCUBATION TO CONTINUE FOR 2 DAYS. 11/17/19 06:45 Blood - Peripheral Venous Blood Culture - Final NO GROWTH AFTER 5 DAYS INCUBATION 11/17/19 06:40 Blood - Peripheral Venous Blood Culture - Final NO GROWTH AFTER 5 DAYS INCUBATION 11/15/19 05:40 Blood - Peripheral Venous Blood Culture - Final S Aureus 11/15/19 05:45 Blood - Peripheral Venous Blood Culture - Final S Aureus 11/13/19 21:30 Blood - Peripheral Venous Blood Culture - Final Presumptive Mrsa (Pbp2a Pos) 11/14/19 00:45 Urine - Urine Clean Catch Urine Culture - Final S Aureus 11/13/19 21:30 Blood - Peripheral Venous Blood Culture - Final S Aureus 11/14/19 00:45 Urine For Antigen Detection Legionella Antigen - Final 11/14/19 00:45 Urine For Antigen Detection Streptococcus pneumoniae Antigen (M - Final Problem List - Problems (1) VIJAY (acute kidney injury) Assessment/Plan: -BUN/Cr 76.0/3.7 -monitor renal function daily -Renal on board Code(s): N17.9 - ACUTE KIDNEY FAILURE, UNSPECIFIED (2) NSTEMI (non-ST elevated myocardial infarction) Assessment/Plan: -Cardiology on board -Troponin 2.61~2.07~1.85 -Tele monitoring -EKG shows NSR with LBBB -Heparin drip discontinued -Atorvastatin -Aspirin -ECHO with EF 55-60% Code(s): I21.4 - NON-ST ELEVATION (NSTEMI) MYOCARDIAL INFARCTION (3) Sepsis Assessment/Plan: -ID on board -LA 4.0~2.8 -Leukocytosis -afebrile -CXR shows no acute pathology -Urine Legionella negative -BC positive MRSA -repeat BC neg -Ceftaroline, Daptomycin -tylenol for temp >100F Code(s): A41.9 - SEPSIS, UNSPECIFIED ORGANISM Qualifiers: Sepsis type: sepsis due to unspecified organism Sepsis acute organ dysfunction status: unspecified Qualified Code(s): A41.9 - Sepsis, unspecified organism (4) Dementia Assessment/Plan: -Neurology on board -Head CT scan shows moderate atrophy, no gross evidence of a focal intracranial lesion or hemorrhage -Namenda Code(s): F03.90 - UNSPECIFIED DEMENTIA WITHOUT BEHAVIORAL DISTURBANCE (5) HTN (hypertension) Assessment/Plan: -low Na diet Code(s): I10 - ESSENTIAL (PRIMARY) HYPERTENSION Assessment/Plan see problem list
[2019-11-23] MEDS: ATORVASTATIN CA 10 MG TABLET (FP) PO SCH (21:47)
[2019-11-24] MEDS: INSULIN (LEVEMIR) 100 UNITS/ML UNITS SQ SCH ×2 (06:01→22:07)
[2019-11-24] MEDS: INSULIN SLIDING SCALE (NOVOLOG) 1 VIAL SQ SCH ×4 (06:01→22:07)
[2019-11-24 06:25] LABS: HEMATOCRIT 28.2 % (35.4-49); HEMOGLOBIN 9.3 GM/dL (11.7-16.9); MCH 29.4 pg (25.7-33.7); MCHC 32.8 g/dl (32.0-35.9); MEAN CELL VOLUME 89.7 fl (80-96); MEAN PLT VOLUME 10.4 fl (7.5-11.1); PLATELET COUNT 133 K/MM3 (134-434); RBC 3.15 M/mm3 (4.00-5.60); RDW 14.3 % (11.9-15.9); WHITE BLOOD COUNT 19.8 K/mm3 (4.0-10.0)
[2019-11-24] MEDS ORDERED: PT OWN MED DRAWER 7, Y5N ONE ×3 (08:15→20:55)
[2019-11-24 09:04] LABS: ALBUMIN 1.5 g/dl (3.4-5.0); BILIRUBIN,TOTAL 0.5 mg/dL (0.2-1); BLOOD UREA NITROGEN 64.8 mg/dL (7-18); CALCIUM 7.9 mg/dL (8.5-10.1); CREATININE 3.1 mg/dL (0.55-1.3); POTASSIUM 4.1 mmol/L (3.5-5.1); TOT PROT 6.2 g/dl (6.4-8.2)
--- NOTE | 2019-11-24 09:11 | PN ---
Progress Note, Physician Chief Complaint: AWAKE CONFUSED [facility] - Current Medication List Current Medications: Active Medications Acetaminophen (Tylenol Suppository -) 650 mg [place] Q6H PRN PRN Reason: FEVER Last Admin: 11/20/19 07:05 Dose: 650 mg Aspirin (Asa -) 81 mg PO DAILY [facility] Last Admin: 11/23/19 09:42 Dose: 81 mg Atorvastatin Calcium (Lipitor -) 10 mg PO HS [facility] Last Admin: 11/23/19 21:47 Dose: 10 mg Ceftaroline Fosamil 400 mg/ (Dextrose) 100 mls @ 200 mls/hr IVPB BID [facility]; Protocol Last Admin: 11/23/19 21:47 Dose: 200 mls/hr Daptomycin 500 mg/ Sodium (Chloride) 50 mls @ 100 mls/hr IVPB Q48H [facility]; Protocol Last Admin: 11/23/19 10:54 Dose: 100 mls/hr Dextrose (D5w -) 1,000 mls @ 130 mls/hr IV ASDIR [facility] Last Admin: 11/23/19 12:11 Dose: 130 mls/hr Insulin Aspart (Novolog Vial Sliding Scale -) 1 vial SQ ACHS [facility]; Protocol Last Admin: 11/24/19 06:01 Dose: 2 units Insulin Detemir (Levemir Vial) 10 units SQ BID@0700,2200 [facility] Last Admin: 11/24/19 06:01 Dose: 10 units Memantine (Namenda -) 5 mg PO BID [facility] Last Admin: 11/23/19 21:47 Dose: 5 mg Tamsulosin HCl (Flomax -) 0.4 mg PO DAILY@0830 [facility] Last Admin: 11/23/19 09:04 Dose: 0.4 mg - Objective Vital Signs: Vital Signs Temperature 98.3 F 11/24/19 06:00 Pulse Rate 66 11/24/19 06:00 Respiratory Rate 20 11/24/19 06:00 Blood Pressure 140/72 11/24/19 06:00 O2 Sat by Pulse Oximetry (%) 96 11/23/19 21:00 Constitutional: Yes: Mild Distress Cardiovascular: Yes: Pulse Irregular Respiratory: Yes: Diminished, On Nasal O2 Gastrointestinal: Yes: Soft Genitourinary: Yes: Incontinence Musculoskeletal: Yes: Muscle Weakness Edema: Yes Neurological: Yes: Confusion, Pre-Existing Deficit Psychiatric: Yes: Other Labs: CBC, BMP 02/02/20 06:00 11/24/19 08:20 INR, PTT INR 1.31 (0.83-1.09) H 11/13/19 21:30 Problem List - Problems (1) VIJAY (acute kidney injury) Code(s): N17.9 - ACUTE KIDNEY FAILURE, UNSPECIFIED (2) Gram-positive bacteremia Code(s): R78.81 - BACTEREMIA (3) NSTEMI (non-ST elevated myocardial infarction) Code(s): I21.4 - NON-ST ELEVATION (NSTEMI) MYOCARDIAL INFARCTION (4) Pneumonia Code(s): J18.9 - PNEUMONIA, UNSPECIFIED ORGANISM (5) Sepsis Code(s): A41.9 - SEPSIS, UNSPECIFIED ORGANISM Qualifiers: Sepsis type: sepsis due to unspecified organism Sepsis acute organ dysfunction status: unspecified Qualified Code(s): A41.9 - Sepsis, unspecified organism (6) UTI (urinary tract infection) Code(s): N39.0 - URINARY TRACT INFECTION, SITE NOT SPECIFIED (7) Aortic stenosis Code(s): I35.0 - NONRHEUMATIC AORTIC (VALVE) STENOSIS (8) Dementia Code(s): F03.90 - UNSPECIFIED DEMENTIA WITHOUT BEHAVIORAL DISTURBANCE (9) HTN (hypertension) Code(s): I10 - ESSENTIAL (PRIMARY) HYPERTENSION Assessment/Plan RENAL FUNCTION IMPROVING BENNETT HAS A GOOD AMOUNT OF URINE COLLECTED NEPHROLOGY F/U APPRECIATED, ON IVF RENAL ADJUSTMENT OF MEDICATIONS NEED ADVANCED DIRECTIVE AND PALLIATIVE CONSULT FOR THIS PATIENT THE QUALITY OF LIFE IS POOR AND PROGNOSIS WELL. NOT A CANDIDATE FOR HD...
[2019-11-24] MEDS: WATER IVPB SCH ×2 (09:46→22:00)
[2019-11-24] MEDS: DEXTROSE 5% IVPB SCH ×2 (09:46→22:00)
[2019-11-24] MEDS: CEFTAROLINE FOSAMIL ACETATE IVPB SCH ×2 (09:46→22:00)
[2019-11-24] MEDS: BACITRACIN 15 GM TUBE TOPICAL OINTMENT TP SCH (09:49)
[2019-11-24] MEDS: ASPIRIN 81 MG CHEWABLE TABLETS PO SCH (09:49)
[2019-11-24] MEDS: TAMSULOSIN HCL 0.4 MG CAP PO SCH (09:50)
[2019-11-24] MEDS: MEMANTINE HCL 5 MG TABLET (UD) PO SCH ×2 (09:50→22:00)
--- NOTE | 2019-11-24 12:22 | PN ---
Progress Note (short form) - Note Progress Note: Renal follow up for VIJAY Coverage for Dr. Parker Seen an examined with the bedside awake, not talking not eating today as per nurse no overnight events on D5W Vital Signs Temperature 97.8 F 11/24/19 10:00 Pulse Rate 75 11/24/19 10:00 Respiratory Rate 20 11/24/19 10:00 Blood Pressure 130/81 11/24/19 10:00 O2 Sat by Pulse Oximetry (%) 97 11/24/19 09:00 Intake & Output 11/21/19 11/22/19 11/23/19 11/24/19 23:59 23:59 23:59 23:59 Intake Total 2660 1910 2340 1280 Output Total 500 1200 Balance 2660 1410 1140 1280 NAD awake and alert Course BS no edema CBC, BMP 11/24/19 06:00 11/24/19 08:20 Current Medications Acetaminophen (Tylenol Suppository -) 650 mg [place] Q6H PRN PRN Reason: FEVER Last Admin: 11/20/19 07:05 Dose: 650 mg Aspirin (Asa -) 81 mg PO DAILY [facility] Last Admin: 11/24/19 09:49 Dose: 81 mg Atorvastatin Calcium (Lipitor -) 10 mg PO HS [facility] Last Admin: 11/23/19 21:47 Dose: 10 mg Bacitracin (Bacitracin -) 1 applic TP DAILY [facility] Last Admin: 11/24/19 09:49 Dose: 1 applic Ceftaroline Fosamil 400 mg/ (Dextrose) 100 mls @ 200 mls/hr IVPB BID [facility]; Protocol Last Admin: 11/24/19 09:46 Dose: 200 mls/hr Daptomycin 500 mg/ Sodium (Chloride) 50 mls @ 100 mls/hr IVPB Q48H [facility]; Protocol Last Admin: 11/23/19 10:54 Dose: 100 mls/hr Dextrose (D5w -) 1,000 mls @ 130 mls/hr IV ASDIR [facility] Last Admin: 11/23/19 12:11 Dose: 130 mls/hr Insulin Aspart (Novolog Vial Sliding Scale -) 1 vial SQ ACHS [facility]; Protocol Last Admin: 11/24/19 11:16 Dose: 7 units Insulin Detemir (Levemir Vial) 10 units SQ BID@0700,2200 [facility] Last Admin: 11/24/19 06:01 Dose: 10 units Memantine (Namenda -) 5 mg PO BID [facility] Last Admin: 11/24/19 09:50 Dose: 5 mg Tamsulosin HCl (Flomax -) 0.4 mg PO DAILY@0830 [facility] Last Admin: 11/24/19 09:50 Dose: 0.4 mg Impression 1. VIJAY 2. lactic acidosis 3. bacteremia 4. sepsis 5. dementia 6. hx htn 7. hypernatremia Plan Renal function improving Serum Na slowly improving Continue D5W at 140cc per hour Trend Na daily and renal function daily oral intake as tolerated Minh Padilla DO
[2019-11-24] MEDS: DEXTROSE 5%-WATER - 1,000 ML IV SCH ×2 (12:40→22:00)
[2019-11-24] MEDS: ATORVASTATIN CA 10 MG TABLET (FP) PO SCH (22:00)
--- NOTE | 2019-11-24 22:50 | PN ---
Progress Note, Physician Chief Complaint: alert yet lethargic - Current Medication List Current Medications: Active Medications Acetaminophen (Tylenol Suppository -) 650 mg [place] Q6H PRN PRN Reason: FEVER Last Admin: 11/20/19 07:05 Dose: 650 mg Aspirin (Asa -) 81 mg PO DAILY [facility] Last Admin: 11/24/19 09:49 Dose: 81 mg Atorvastatin Calcium (Lipitor -) 10 mg PO HS [facility] Last Admin: 11/24/19 22:00 Dose: 10 mg Bacitracin (Bacitracin -) 1 applic TP DAILY [facility] Last Admin: 11/24/19 09:49 Dose: 1 applic Ceftaroline Fosamil 400 mg/ (Dextrose) 100 mls @ 200 mls/hr IVPB BID [facility]; Protocol Last Admin: 11/24/19 22:00 Dose: 200 mls/hr Daptomycin 500 mg/ Sodium (Chloride) 50 mls @ 100 mls/hr IVPB Q48H [facility]; Protocol Last Admin: 11/23/19 10:54 Dose: 100 mls/hr Dextrose (D5w -) 1,000 mls @ 140 mls/hr IV ASDIR [facility] Last Admin: 11/24/19 22:00 Dose: 140 mls/hr Insulin Aspart (Novolog Vial Sliding Scale -) 1 vial SQ ACHS [facility]; Protocol Insulin Detemir (Levemir Vial) 15 units SQ BID@0700,2200 [facility] Memantine (Namenda -) 5 mg PO BID [facility] Last Admin: 11/24/19 22:00 Dose: 5 mg Tamsulosin HCl (Flomax -) 0.4 mg PO DAILY@0830 [facility] Last Admin: 11/24/19 09:50 Dose: 0.4 mg - Objective Vital Signs: Vital Signs Temperature 97.1 F L 11/24/19 18:00 Pulse Rate 66 11/24/19 18:00 Respiratory Rate 18 11/24/19 18:00 Blood Pressure 128/57 L 11/24/19 18:00 O2 Sat by Pulse Oximetry (%) 97 11/24/19 09:00 Constitutional: Yes: Calm Eyes: Yes: EOM Intact HENT: Yes: Normocephalic Neck: Yes: Trachea Midline Cardiovascular: Yes: Regular Rate and Rhythm Respiratory: Yes: CTA Bilaterally Gastrointestinal: Yes: Normal Bowel Sounds ...Rectal Exam: Yes: Deferred Genitourinary: Yes: WNL Breast(s): Yes: WNL Musculoskeletal: Yes: WNL Extremities: Yes: Delayed Capillary Refill Neurological: Yes: Alert, Confusion Labs: CBC, BMP 11/24/19 06:00 11/24/19 08:20 INR, PTT INR 1.31 (0.83-1.09) H 11/13/19 21:30 Problem List - Problems (1) VIJAY (acute kidney injury) Code(s): N17.9 - ACUTE KIDNEY FAILURE, UNSPECIFIED (2) Elevated troponin Code(s): R79.89 - OTHER SPECIFIED ABNORMAL FINDINGS OF BLOOD CHEMISTRY (3) Gram-positive bacteremia Code(s): R78.81 - BACTEREMIA (4) Sepsis Code(s): A41.9 - SEPSIS, UNSPECIFIED ORGANISM Qualifiers: Sepsis type: sepsis due to unspecified organism Sepsis acute organ dysfunction status: unspecified Qualified Code(s): A41.9 - Sepsis, unspecified organism (5) Dementia Code(s): F03.90 - UNSPECIFIED DEMENTIA WITHOUT BEHAVIORAL DISTURBANCE (6) HTN (hypertension) Code(s): I10 - ESSENTIAL (PRIMARY) HYPERTENSION (7) Type 2 diabetes mellitus with hyperglycemia Code(s): E11.65 - TYPE 2 DIABETES MELLITUS WITH HYPERGLYCEMIA (8) Type 2 diabetes mellitus with hyperglycemia Code(s): E11.65 - TYPE 2 DIABETES MELLITUS WITH HYPERGLYCEMIA Assessment/Plan Current Active Problems dm t2,hyperglycemia,ckd VIJAY (acute kidney injury) (Acute) Elevated troponin (Acute) Gram-positive bacteremia (Acute) Sepsis (Acute) UTI (urinary tract infection) (Acute) Abnormal Lab Results 11/24/19 11/24/19 06:00 08:20 WBC 19.8 H RBC 3.15 L Hgb 9.3 L Hct 28.2 L Plt Count 133 L D Sodium 151 H Chloride 123 H Anion Gap 6 L BUN 64.8 H Creatinine 3.1 H Random Glucose 263 H Calcium 7.9 L AST 48 H Alkaline Phosphatase 191 H Total Protein 6.2 L Albumin 1.5 L Laboratory Results - last 24 hr 11/24/19 11/24/19 11/24/19 05:48 06:00 06:00 WBC 19.8 H RBC 3.15 L Hgb 9.3 L Hct 28.2 L MCV 89.7 MCH 29.4 MCHC 32.8 RDW 14.3 Plt Count 133 L D MPV 10.4 Sodium Cancelled Potassium Cancelled Chloride Cancelled Carbon Dioxide Cancelled Anion Gap Cancelled BUN Cancelled Creatinine Cancelled Est GFR (CKD-EPI)AfAm Cancelled Est GFR (CKD-EPI)NonAf Cancelled POC Glucometer 223 Random Glucose Cancelled Calcium Cancelled Total Bilirubin Cancelled AST Cancelled ALT Cancelled Alkaline Phosphatase Cancelled Total Protein Cancelled Albumin Cancelled 11/24/19 11/24/19 11/24/19 08:20 11:14 16:26 WBC RBC Hgb Hct MCV MCH MCHC RDW Plt Count MPV Sodium 151 H Potassium 4.1 Chloride 123 H Carbon Dioxide 22 Anion Gap 6 L BUN 64.8 H Creatinine 3.1 H Est GFR (CKD-EPI)AfAm 21.03 Est GFR (CKD-EPI)NonAf 18.15 POC Glucometer 334 208 Random Glucose 263 H Calcium 7.9 L Total Bilirubin 0.5 AST 48 H ALT 61 Alkaline Phosphatase 191 H Total Protein 6.2 L Albumin 1.5 L 11/24/19 22:04 WBC RBC Hgb Hct MCV MCH MCHC RDW Plt Count MPV Sodium Potassium Chloride Carbon Dioxide Anion Gap BUN Creatinine Est GFR (CKD-EPI)AfAm Est GFR (CKD-EPI)NonAf POC Glucometer 318 Random Glucose Calcium Total Bilirubin AST ALT Alkaline Phosphatase Total Protein Albumin plan: bgm qid coverage novolog levemir bid 15iu supportive care oms,dementia
[2019-11-25] MEDS: INSULIN (LEVEMIR) 100 UNITS/ML UNITS SQ SCH ×2 (06:16→22:45)
[2019-11-25] MEDS: INSULIN SLIDING SCALE (NOVOLOG) 1 VIAL SQ SCH ×4 (06:16→22:45)
--- NOTE | 2019-11-25 08:46 | DS ---
Physical Examination Vital Signs: Vital Signs Temperature 97.7 F 11/25/19 06:00 Pulse Rate 62 11/25/19 06:00 Respiratory Rate 20 11/25/19 06:00 Blood Pressure 154/74 11/25/19 06:00 O2 Sat by Pulse Oximetry (%) 97 11/24/19 21:00 Findings/Remarks: AWAKE CONFUSED BASELINE Cardiovascular: Yes: Pulse Irregular Respiratory: Yes: Diminished, On Nasal O2 Gastrointestinal: Yes: Soft Renal/: Yes: Bennett Present Musculoskeletal: Yes: Muscle Weakness Edema: No Neurological: Yes: Confusion, Dysarthria Labs: CBC, BMP 11/24/19 06:00 Discharge Summary Problems reviewed: Yes Reason For Visit: ACUTE KIDNEY INJURY, SEPSIS Current Active Problems VIJAY (acute kidney injury) (Acute) Elevated troponin (Acute) Gram-positive bacteremia (Acute) Sepsis (Acute) Type 2 diabetes mellitus with hyperglycemia (Acute) Type 2 diabetes mellitus with hyperglycemia (Acute) UTI (urinary tract infection) (Acute) Procedures: Principal: CT SCANS/LABS Hospital Course: ADMITTED ACUTE ON CHRONIC RENAL FAILURE, DEMENTIA, SEPSIS, ASPIRATIONS, UTI, WEAKNESS TREATED IV ABX AND MONITORED ON TELEMETRY WITHOUT SIGNIFICANT CARDIAC ALARMS. BENNETT INSERTED AND SHOULD STAY IN WITH UROLOGY F/U. Plan of Treatment: PICC LINE IV ABX UROLOGY F/U BENNETT REMOVAL IN A FEW DAYS Condition: Poor - Instructions Diet, Activity, Other Instructions: OVERALL PROGNOSIS IS POOR WITH A POOR QUALITY OF LIFE WE HAVE TRIED TO MAKE THE PATIENT DNR/DNI. AT [facility] FAMILY AND CASE WORKERS SHOULD MEET TO DISCUSS GOALS OF CARE. UROLOGY FOLLOW UP BENNETT REMOVAL PICC LINE IV ABX PER ID Disposition: [facility] FACILITY - Home Medications Comprehensive Discharge Medication List: Ambulatory Orders Insulin (Levemir) [Levemir Vial] 12 units SQ AM ml 01/30/18 Donepezil HCl [Aricept -] 10 mg PO HS 11/14/19 Lisinopril 5 mg PO DAILY 11/14/19 Memantine HCl [Namenda -] 5 mg PO BID 11/14/19 Acetaminophen Suppository [Tylenol .Suppository -] 650 mg NE Q6H PRN supp.rect 11/25/19 Aspirin [ASA -] 81 mg PO DAILY tab.chew 11/25/19 Atorvastatin Ca [Lipitor] 10 mg PO HS tablet 11/25/19 Bacitracin - [Bacitracin Topical Ointment -] 1 applic TP DAILY tube 11/25/19 Ceftaroline Fosamil Acetate [Teflaro (Restricted To Id)] 400 mg IVPB BID vial 11/25/19 Daptomycin [Cubicin (Restricted To Id) -] 500 mg IVPB Q48H vial 11/25/19 Insulin (Levemir) [Levemir Vial] 15 units SQ BID@0700,2200 units 11/25/19 Insulin Sliding Scale [Novolog Vial Sliding Scale -] 1 vial SQ ACHS units 11/25 Memantine HCl [Namenda -] 5 mg PO BID tab 11/25/19 Tamsulosin HCl [Flomax -] 0.4 mg PO DAILY@0830 cap.er.24h 11/25/19 Prescription Drug Monitoring Program (I-STOP) results: I-STOP not reviewed
[2019-11-25 09:04] LABS: BLOOD UREA NITROGEN 56.4 mg/dL (7-18); CALCIUM 7.6 mg/dL (8.5-10.1); CREATININE 2.7 mg/dL (0.55-1.3); POTASSIUM 4.1 mmol/L (3.5-5.1)
[2019-11-25] MEDS ORDERED: PT OWN MED DRAWER 7, Y5N ONE ×3 (09:26→22:36)
[2019-11-25] MEDS: MEMANTINE HCL 5 MG TABLET (UD) PO SCH ×2 (09:50→22:45)
[2019-11-25] MEDS: TAMSULOSIN HCL 0.4 MG CAP PO SCH (09:50)
[2019-11-25] MEDS: ASPIRIN 81 MG CHEWABLE TABLETS PO SCH (09:51)
[2019-11-25] MEDS: DEXTROSE 5% IVPB SCH ×2 (09:52→22:46)
[2019-11-25] MEDS: WATER IVPB SCH ×2 (09:52→22:46)
[2019-11-25] MEDS: CEFTAROLINE FOSAMIL ACETATE IVPB SCH ×2 (09:52→22:46)
[2019-11-25] MEDS: BACITRACIN 15 GM TUBE TOPICAL OINTMENT TP SCH (09:52)
[2019-11-25] MEDS: DEXTROSE 5%-WATER - 1,000 ML IV SCH ×3 (09:52→20:10)
[2019-11-25] MEDS: DAPTOMYCIN 500 MG in SODIUM CHLORIDE 50 ML IVPB SCH (11:29)
--- NOTE | 2019-11-25 17:54 | CON.GU ---
Consult Consult Specialty:: urology Referred by:: Dominga Reason for Consultation:: urinary retention and urosepsis - History of Present Illness Chief Complaint: urosepsis with acute urinary retention History of Present Illness: Patient is a 78 yo male with a history of chronic renal failure with acute excacerbation, dementia, urosepsis secondary to uti, found in urinary retention. Patient with creatinine slowly normalizing with countinued elevated WBC. Patient with telles draining clear urine on flomax. Patient is unable to give a good history. 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 Cardio/Vascular: Yes: Aortic Stenosis, HTN Psych: Yes: Other Endocrine: Yes: Diabetes Mellitus - Alcohol/Substance Use Hx Alcohol Use: No History of Substance Use: reports: None - Smoking History Smoking history: Never smoked - Social History ADL: Support Services History of Recent Travel: No Home Medications - Allergies Allergies/Adverse Reactions: Allergies Allergy/AdvReac Type Severity Reaction Status Date / Time No Known Allergies Allergy Verified 01/28/18 13:56 - Home Medications Home Medications: Ambulatory Orders Insulin (Levemir) [Levemir Vial] 12 units SQ AM ml 01/30/18 Donepezil HCl [Aricept -] 10 mg PO HS 11/14/19 Lisinopril 5 mg PO DAILY 11/14/19 Memantine HCl [Namenda -] 5 mg PO BID 11/14/19 Acetaminophen Suppository [Tylenol .Suppository -] 650 mg TN Q6H PRN supp.rect 11/25/19 Aspirin [ASA -] 81 mg PO DAILY tab.chew 11/25/19 Atorvastatin Ca [Lipitor] 10 mg PO HS tablet 11/25/19 Bacitracin - [Bacitracin Topical Ointment -] 1 applic TP DAILY tube 11/25/19 Ceftaroline Fosamil Acetate [Teflaro (Restricted To Id)] 400 mg IVPB BID vial 11/25/19 Daptomycin [Cubicin (Restricted To Id) -] 500 mg IVPB Q48H vial 11/25/19 Insulin (Levemir) [Levemir Vial] 15 units SQ BID@0700,2200 units 11/25/19 Insulin Sliding Scale [Novolog Vial Sliding Scale -] 1 vial SQ ACHS units 11/25 Memantine HCl [Namenda -] 5 mg PO BID tab 11/25/19 Tamsulosin HCl [Flomax -] 0.4 mg PO DAILY@0830 cap.er.24h 11/25/19 Physical Exam- Vital Signs: Vital Signs Temperature 98.8 F 11/25/19 14:00 Pulse Rate 64 11/25/19 14:00 Respiratory Rate 20 11/25/19 14:00 Blood Pressure 131/48 L 11/25/19 14:00 O2 Sat by Pulse Oximetry (%) 97 11/25/19 09:00 Constitutional: Yes: No Distress, Calm Eyes: Yes: Conjunctiva Clear, EOM Intact HENT: Yes: WNL, Atraumatic, Normocephalic Neck: Yes: WNL, Supple, Trachea Midline Cardiovascular: Yes: WNL, Regular Rate and Rhythm Respiratory: Yes: Regular Gastrointestinal: Yes: Normal Bowel Sounds, Soft Renal/: Yes: WNL Kidneys: Yes: WNL Pelvis: Yes: WNL Testicles: Yes: WNL Scrotum: Yes: WNL Penis: Yes: WNL Prostate Exam: Yes: Asymmetrical Labs: CBC, BMP 11/24/19 06:00 11/25/19 06:00 Imaging - Results Cat Scan: Report Reviewed Assessment/Plan impression uti MRSA sepsis urinary retention acute renal failure plan continue flomax d/c telles after resolution of uti/sepsis and stabilization of renal function
--- NOTE | 2019-11-25 17:58 | PN ---
Progress Note (short form) - Note Progress Note: more alert mitts in place telles replaced Vital Signs Period Temp Pulse Resp BP Sys/Mujica Pulse Ox Last 24 Hr 97.1 F-98.8 F 62-68 18-20 106-154/48-74 97-97 cor-rrr lungs clear abd soft,nt ext no edema telles CBC, BMP 11/24/19 06:00 11/25/19 06:00 Laboratory Tests 11/15/19 11/22/19 05:40 06:00 C-Reactive Protein 33.4 H 9.9 H Microbiology 11/20/19 14:20 Blood - Peripheral Venous Blood Culture - Preliminary NO GROWTH OBTAINED AFTER 48 HOURS, INCUBATION TO CONTINUE FOR 3 DAYS. 11/20/19 14:15 Blood - Peripheral Venous Blood Culture - Preliminary NO GROWTH OBTAINED AFTER 48 HOURS, INCUBATION TO CONTINUE FOR 3 DAYS. 11/17/19 06:45 Blood - Peripheral Venous Blood Culture - Final NO GROWTH AFTER 5 DAYS INCUBATION 11/17/19 06:40 Blood - Peripheral Venous Blood Culture - Final NO GROWTH AFTER 5 DAYS INCUBATION 11/15/19 05:40 Blood - Peripheral Venous Blood Culture - Final S Aureus 11/15/19 05:45 Blood - Peripheral Venous Blood Culture - Final S Aureus 11/13/19 21:30 Blood - Peripheral Venous Blood Culture - Final Presumptive Mrsa (Pbp2a Pos) 11/14/19 00:45 Urine - Urine Clean Catch Urine Culture - Final S Aureus 11/13/19 21:30 Blood - Peripheral Venous Blood Culture - Final S Aureus 11/14/19 00:45 Urine For Antigen Detection Legionella Antigen - Final 11/14/19 00:45 Urine For Antigen Detection Streptococcus pneumoniae Antigen (M - Final a/p MRSA bacteremia-r/o endocarditis with underlying day #10 antibiotics after last positive blood cultures d/c ceftaroline continue daptomycin 500 mg ivpb 48hours until renal function crcl improves to greater then 30-currently 22, will then need q24 hours daptomycin would treat total 42 days +troponins- NSTEMI- per cardiology VIJAY- renal function slowly improving Problem List - Problems (1) Sepsis Code(s): A41.9 - SEPSIS, UNSPECIFIED ORGANISM Qualifiers: Qualified Code(s): A41.9 - Sepsis, unspecified organism (2) Gram-positive bacteremia Code(s): R78.81 - BACTEREMIA (3) NSTEMI (non-ST elevated myocardial infarction) Code(s): I21.4 - NON-ST ELEVATION (NSTEMI) MYOCARDIAL INFARCTION (4) VIJAY (acute kidney injury) Code(s): N17.9 - ACUTE KIDNEY FAILURE, UNSPECIFIED
--- NOTE | 2019-11-25 18:23 | PN ---
Progress Note, Physician History of Present Illness: Pt seen and examined at bedside. He remains confused. - Current Medication List Current Medications: Active Medications Acetaminophen (Tylenol Suppository -) 650 mg [place] Q6H PRN PRN Reason: FEVER Last Admin: 11/20/19 07:05 Dose: 650 mg Aspirin (Asa -) 81 mg PO DAILY [facility] Last Admin: 11/25/19 09:51 Dose: 81 mg Atorvastatin Calcium (Lipitor -) 10 mg PO HS [facility] Last Admin: 11/24/19 22:00 Dose: 10 mg Bacitracin (Bacitracin -) 1 applic TP DAILY [facility] Last Admin: 11/25/19 09:52 Dose: 1 applic Ceftaroline Fosamil 400 mg/ (Dextrose) 100 mls @ 200 mls/hr IVPB BID [facility]; Protocol Last Admin: 11/25/19 09:52 Dose: 200 mls/hr Daptomycin 500 mg/ Sodium (Chloride) 50 mls @ 100 mls/hr IVPB Q48H [facility]; Protocol Last Admin: 11/25/19 11:29 Dose: 100 mls/hr Dextrose (D5w -) 1,000 mls @ 140 mls/hr IV ASDIR [facility] Last Admin: 11/25/19 11:32 Dose: Not Given Insulin Aspart (Novolog Vial Sliding Scale -) 1 vial SQ ACHS [facility]; Protocol Last Admin: 11/25/19 16:34 Dose: Not Given Insulin Detemir (Levemir Vial) 15 units SQ BID@0700,2200 [facility] Last Admin: 11/25/19 06:16 Dose: 15 unit Memantine (Namenda -) 5 mg PO BID [facility] Last Admin: 11/25/19 09:50 Dose: 5 mg Tamsulosin HCl (Flomax -) 0.4 mg PO DAILY@0830 [facility] Last Admin: 11/25/19 09:50 Dose: 0.4 mg - Objective Vital Signs: Vital Signs Temperature 98.8 F 11/25/19 14:00 Pulse Rate 64 11/25/19 14:00 Respiratory Rate 20 11/25/19 14:00 Blood Pressure 131/48 L 11/25/19 14:00 O2 Sat by Pulse Oximetry (%) 97 11/25/19 09:00 Constitutional: Yes: Calm Eyes: Yes: Conjunctiva Clear HENT: Yes: Atraumatic Neck: Yes: Supple Cardiovascular: Yes: S1, S2 Respiratory: Yes: CTA Bilaterally Gastrointestinal: Yes: Soft Genitourinary: Yes: Incontinence Musculoskeletal: Yes: Muscle Weakness Edema: No Neurological: Yes: Confusion Labs: CBC, BMP 11/24/19 06:00 11/25/19 06:00 INR, PTT INR 1.31 (0.83-1.09) H 11/13/19 21:30 Laboratory Tests 11/19/19 11/19/19 06:10 06:10 ARACELI M-Nathan Not observed DERRICK Screen Negative c-ANCA <1:20 Proteinase 3 (PR3) <3.5 p-ANCA <1:20 Atypical p-ANCA <1:20 Myeloperoxidase Ab <9.0 Double Strand DNA Ab <1 Glomerular Base Memb Ab 4 Problem List - Problems (1) VIJAY (acute kidney injury) Code(s): N17.9 - ACUTE KIDNEY FAILURE, UNSPECIFIED (2) Dementia Code(s): F03.90 - UNSPECIFIED DEMENTIA WITHOUT BEHAVIORAL DISTURBANCE Assessment/Plan Current Medications Generic Name Dose Route Start Last Admin Trade Name Freq PRN Reason Stop Dose Admin Acetaminophen 650 mg 11/15/19 06:23 11/20/19 07:05 Tylenol Suppository - IL 650 mg Q6H PRN Administration FEVER Aspirin 81 mg 11/15/19 10:00 11/22/19 11:20 Asa - PO 81 mg DAILY MELVIN Administration Atorvastatin Calcium 10 mg 11/14/19 22:00 11/21/19 21:15 Lipitor - PO 10 mg HS MELVIN Administration Ceftaroline Fosamil 400 mg/ 100 mls @ 200 mls/hr 11/15/19 14:45 11/22/19 10: 20 Dextrose IVPB 200 mls/hr BID MELVIN Administration Protocol Daptomycin 500 mg/ Sodium 50 mls @ 100 mls/hr 11/17/19 10:30 11/21/19 10:35 Chloride IVPB 100 mls/hr Q48H MELVIN Administration Protocol Dextrose 1,000 mls @ 83 mls/hr 11/22/19 09:30 11/22/19 11:21 D5w - IV 83 mls/hr ASDIR MELVIN Administration Insulin Aspart 1 vial 11/18/19 22:00 11/22/19 13:20 Novolog Vial Sliding Scale - SQ Not Given ACHS MELVIN Protocol Insulin Detemir 10 units 11/21/19 10:45 11/22/19 06:06 Levemir Vial SQ 10 units BID@0700,2200 MELVIN Administration Memantine 5 mg 11/14/19 10:00 11/22/19 11:20 Namenda - PO 5 mg BID MELVIN Administration Tamsulosin HCl 0.4 mg 11/19/19 08:30 11/22/19 09:20 Flomax - PO 0.4 mg DAILY@0830 MELVIN Administration Laboratory Tests 11/19/19 11/19/19 06:10 06:10 ARACELI M-Nathan Not observed DERRICK Screen Negative c-ANCA <1:20 Proteinase 3 (PR3) <3.5 p-ANCA <1:20 Atypical p-ANCA <1:20 Myeloperoxidase Ab <9.0 Double Strand DNA Ab <1 Glomerular Base Memb Ab 4 Impression 1. VIJAY 2. lactic acidosis 3. bacteremia 4. sepsis 5. dementia 6. hx htn 7. hypernatremia Plan - renal function is improving - cont fluids - monitor renal function as outpt - serologies negative - will need outpt follow up - avoid nsaids
[2019-11-25] MEDS: ATORVASTATIN CA 10 MG TABLET (FP) PO SCH (22:44)
[2019-11-26] MEDS: DEXTROSE 5%-WATER - 1,000 ML IV SCH ×2 (04:00→13:28)
[2019-11-26] MEDS: INSULIN SLIDING SCALE (NOVOLOG) 1 VIAL SQ SCH ×4 (06:27→22:33)
[2019-11-26] MEDS: INSULIN (LEVEMIR) 100 UNITS/ML UNITS SQ SCH ×2 (06:28→22:32)
--- NOTE | 2019-11-26 08:48 | PN ---
Progress Note (short form) - Note Progress Note: FORMS AND DISCHARGE PAPERWORK COMPLETED DC TO SNF ON DAPTOMYSIN PICC LINE INSERTED DC PLANNING CLEARED FOR DISCHARGE Problem List - Problems (1) VIJAY (acute kidney injury) Code(s): N17.9 - ACUTE KIDNEY FAILURE, UNSPECIFIED (2) Gram-positive bacteremia Code(s): R78.81 - BACTEREMIA (3) NSTEMI (non-ST elevated myocardial infarction) Code(s): I21.4 - NON-ST ELEVATION (NSTEMI) MYOCARDIAL INFARCTION (4) Pneumonia Code(s): J18.9 - PNEUMONIA, UNSPECIFIED ORGANISM (5) Sepsis Code(s): A41.9 - SEPSIS, UNSPECIFIED ORGANISM Qualifiers: Sepsis type: sepsis due to unspecified organism Sepsis acute organ dysfunction status: unspecified Qualified Code(s): A41.9 - Sepsis, unspecified organism (6) UTI (urinary tract infection) Code(s): N39.0 - URINARY TRACT INFECTION, SITE NOT SPECIFIED (7) Aortic stenosis Code(s): I35.0 - NONRHEUMATIC AORTIC (VALVE) STENOSIS (8) Dementia Code(s): F03.90 - UNSPECIFIED DEMENTIA WITHOUT BEHAVIORAL DISTURBANCE (9) HTN (hypertension) Code(s): I10 - ESSENTIAL (PRIMARY) HYPERTENSION
[2019-11-26] MEDS ORDERED: PT OWN MED DRAWER 7, Y5N ONE (09:08)
[2019-11-26] MEDS: ASPIRIN 81 MG CHEWABLE TABLETS PO SCH (09:17)
[2019-11-26] MEDS: TAMSULOSIN HCL 0.4 MG CAP PO SCH (09:17)
[2019-11-26] MEDS: DEXTROSE 5% IVPB SCH (09:17)
[2019-11-26] MEDS: BACITRACIN 15 GM TUBE TOPICAL OINTMENT TP SCH (09:17)
[2019-11-26] MEDS: WATER IVPB SCH (09:17)
[2019-11-26] MEDS: CEFTAROLINE FOSAMIL ACETATE IVPB SCH (09:17)
--- NOTE | 2019-11-26 10:11 | PN ---
Progress Note (short form) - Note Progress Note: plans for discharge back to [facility] today per PMD will switch to vancomycin- will need 31 more days of antiibotics for total 42 ( now day #11)- for MRSA bacteremia- first dose now unfortunately given changing renal function (improving) will not be able to calculate a daily dose for patient- his renal function and vancomycin level will need to be followed daily at the [facility] until his renal function stabilizes and a daily vancomycin dose can be calculated - willl d/w dr jones to see if this is feasible at the [facility] more awake Vital Signs Period Temp Pulse Resp BP Sys/Mujica Pulse Ox Last 24 Hr 97.0 F-98.0 F 53-71 18-18 99-123/57-64 96 cor-rrr lungs clear abd soft,nt ext no edema +telles a/p MRSA Bacteremia- will check vancomycin trough in am awaiting disposition plan for vancomycin at the [facility] for 31 more days Problem List - Problems (1) Sepsis Code(s): A41.9 - SEPSIS, UNSPECIFIED ORGANISM Qualifiers: Sepsis type: sepsis due to unspecified organism Sepsis acute organ dysfunction status: unspecified Qualified Code(s): A41.9 - Sepsis, unspecified organism (2) Gram-positive bacteremia Code(s): R78.81 - BACTEREMIA (3) NSTEMI (non-ST elevated myocardial infarction) Code(s): I21.4 - NON-ST ELEVATION (NSTEMI) MYOCARDIAL INFARCTION (4) VIJAY (acute kidney injury) Code(s): N17.9 - ACUTE KIDNEY FAILURE, UNSPECIFIED
[2019-11-26] MEDS ORDERED: VANCOMYCIN 1 GRAM (PRE-DOCKED) 1,000 MG/250 ML BAG IVPB ONE (10:15)
[2019-11-26] MEDS: MEMANTINE HCL 5 MG TABLET (UD) PO SCH ×2 (11:19→22:31)
--- NOTE | 2019-11-26 14:54 | PN ---
Progress Note, Physician History of Present Illness: Pt seen and examined at bedside. He appears comfortable. He remains confused. - Current Medication List Current Medications: Active Medications Acetaminophen (Tylenol Suppository -) 650 mg RI Q6H PRN PRN Reason: FEVER Last Admin: 11/20/19 07:05 Dose: 650 mg Aspirin (Asa -) 81 mg PO DAILY [facility] Last Admin: 11/26/19 09:17 Dose: 81 mg Atorvastatin Calcium (Lipitor -) 10 mg PO HS [facility] Last Admin: 11/25/19 22:44 Dose: 10 mg Bacitracin (Bacitracin -) 1 applic TP DAILY [facility] Last Admin: 11/26/19 09:17 Dose: 1 applic Dextrose (D5w -) 1,000 mls @ 140 mls/hr IV ASDIR [facility] Last Admin: 11/26/19 13:28 Dose: 140 mls/hr Vancomycin HCl (Vancomycin (Pre-Docked)) 1,000 mg in 250 mls @ 166.667 mls/hr IVPB Q24H [facility]; Protocol Insulin Aspart (Novolog Vial Sliding Scale -) 1 vial SQ ACHS [facility]; Protocol Last Admin: 11/26/19 12:20 Dose: 4 units Insulin Detemir (Levemir Vial) 15 units SQ BID@0700,2200 [facility] Last Admin: 11/26/19 06:28 Dose: 15 unit Memantine (Namenda -) 5 mg PO BID [facility] Last Admin: 11/26/19 11:19 Dose: 5 mg Tamsulosin HCl (Flomax -) 0.4 mg PO DAILY@0830 [facility] Last Admin: 11/26/19 09:17 Dose: 0.4 mg - Objective Vital Signs: Vital Signs Temperature 97.7 F 11/26/19 14:23 Pulse Rate 71 11/26/19 14:23 Respiratory Rate 18 11/26/19 14:23 Blood Pressure 99/57 L 11/26/19 14:23 O2 Sat by Pulse Oximetry (%) 96 11/26/19 09:00 Constitutional: Yes: Calm Eyes: Yes: Conjunctiva Clear HENT: Yes: Atraumatic Neck: Yes: Supple Cardiovascular: Yes: S1, S2 Respiratory: Yes: CTA Bilaterally Gastrointestinal: Yes: Soft Genitourinary: Yes: Ofrd Present Musculoskeletal: Yes: Muscle Weakness Edema: No Neurological: Yes: Confusion, Lethargy Labs: CBC, BMP 02/02/20 06:00 11/25/19 06:00 INR, PTT INR 1.31 (0.83-1.09) H 11/13/19 21:30 Problem List - Problems (1) VIJAY (acute kidney injury) Code(s): N17.9 - ACUTE KIDNEY FAILURE, UNSPECIFIED (2) Dementia Code(s): F03.90 - UNSPECIFIED DEMENTIA WITHOUT BEHAVIORAL DISTURBANCE Assessment/Plan Current Medications Generic Name Dose Route Start Last Admin Trade Name Freq PRN Reason Stop Dose Admin Acetaminophen 650 mg 11/15/19 06:23 11/20/19 07:05 Tylenol Suppository - RI 650 mg Q6H PRN Administration FEVER Aspirin 81 mg 11/15/19 10:00 11/26/19 09:17 Asa - PO 81 mg DAILY MELVIN Administration Atorvastatin Calcium 10 mg 11/14/19 22:00 11/25/19 22:44 Lipitor - PO 10 mg HS MELVIN Administration Bacitracin 1 applic 11/24/19 10:00 11/26/19 09:17 Bacitracin - TP 1 applic DAILY MELVIN Administration Dextrose 1,000 mls @ 140 mls/hr 11/24/19 12:22 11/26/19 13:28 D5w - IV 140 mls/hr ASDIR MELVIN Administration Vancomycin HCl 1,000 mg in 250 mls @ 166.667 mls/hr 11/27/19 10:00 Vancomycin (Pre-Docked) IVPB Q24H MELVIN Protocol Insulin Aspart 1 vial 11/25/19 07:00 11/26/19 12:20 Novolog Vial Sliding Scale - SQ 4 units ACHS MELVIN Administration Protocol Insulin Detemir 15 units 11/25/19 07:00 11/26/19 06:28 Levemir Vial SQ 15 unit BID@0700,2200 MELVIN Administration Memantine 5 mg 11/14/19 10:00 11/26/19 11:19 Namenda - PO 5 mg BID MELVIN Administration Tamsulosin HCl 0.4 mg 11/19/19 08:30 11/26/19 09:17 Flomax - PO 0.4 mg DAILY@0830 MELVIN Administration Impression 1. VIJAY 2. lactic acidosis 3. bacteremia 4. sepsis 5. dementia 6. hx htn 7. hypernatremia Plan - renal function has been improving - cont d5w - monitor sodium - will need to monitor environmental protection geologist and na in rehab - renal dose meds, GFR is changing - avoid nsaids
--- NOTE | 2019-11-26 15:11 | DS ---
Physical Examination Vital Signs: Vital Signs Temperature 97.7 F 11/26/19 14:23 Pulse Rate 71 11/26/19 14:23 Respiratory Rate 18 11/26/19 14:23 Blood Pressure 99/57 L 11/26/19 14:23 O2 Sat by Pulse Oximetry (%) 96 11/26/19 09:00 Findings/Remarks: CONFUSED NO ACUTE CHANGES Constitutional: Yes: Mild Distress Cardiovascular: Yes: Pulse Irregular Respiratory: Yes: Diminished Gastrointestinal: Yes: Soft Renal/: Yes: Bennett Present Neurological: Yes: Confusion, Pre-Existing Deficit Labs: CBC, BMP 11/24/19 06:00 11/25/19 06:00 Discharge Summary Problems reviewed: Yes Reason For Visit: ACUTE KIDNEY INJURY, SEPSIS Current Active Problems VIJAY (acute kidney injury) (Acute) Elevated troponin (Acute) Gram-positive bacteremia (Acute) Sepsis (Acute) Type 2 diabetes mellitus with hyperglycemia (Acute) Type 2 diabetes mellitus with hyperglycemia (Acute) UTI (urinary tract infection) (Acute) Procedures: Principal: LABS/CX/CT SCANS Hospital Course: ADMITTED ACUTE ON CHRONIC RENAL FAILURE, DEMENTIA, SEPSIS, ASPIRATIONS, UTI, WEAKNESS TREATED IV ABX AND MONITORED ON TELEMETRY WITHOUT SIGNIFICANT CARDIAC ALARMS. BENNETT INSERTED AND SHOULD STAY IN WITH UROLOGY F/U. Plan of Treatment: PICC LINE IV ABX UROLOGY F/U BENNETT REMOVAL IN A FEW DAYS Condition: Poor - Instructions Diet, Activity, Other Instructions: OVERALL PROGNOSIS IS POOR WITH A POOR QUALITY OF LIFE WE HAVE TRIED TO MAKE THE PATIENT DNR/DNI. AT [facility] FAMILY AND CASE WORKERS SHOULD MEET TO DISCUSS GOALS OF CARE. UROLOGY FOLLOW UP BENNETT REMOVAL PICC LINE IV ABX PER ID will switch to vancomycin- will need 31 more days of antiibotics for total 42 ( now day #11)- for MRSA bacteremia- first dose now unfortunately given changing renal function (improving) will not be able to calculate a daily dose for patient- his renal function and vancomycin level will need to be followed daily at the [facility] until his renal function stabilizes and a daily vancomycin dose can be calculated - nEEDS A NEPHROLOGY CONSULT IMMEDIATELY WHEN HE GETS TO [facility]! Disposition: LONG-TERM FACILITY - Home Medications Comprehensive Discharge Medication List: Ambulatory Orders Insulin (Levemir) [Levemir Vial] 12 units SQ AM ml 01/30/18 Donepezil HCl [Aricept -] 10 mg PO HS 11/14/19 Lisinopril 5 mg PO DAILY 11/14/19 Memantine HCl [Namenda -] 5 mg PO BID 11/14/19 Acetaminophen Suppository [Tylenol .Suppository -] 650 mg TN Q6H PRN supp.rect 11/25/19 Aspirin [ASA -] 81 mg PO DAILY tab.chew 11/25/19 Atorvastatin Ca [Lipitor] 10 mg PO HS tablet 11/25/19 Bacitracin - [Bacitracin Topical Ointment -] 1 applic TP DAILY tube 11/25/19 Ceftaroline Fosamil Acetate [Teflaro (Restricted To Id)] 400 mg IVPB BID vial 11/25/19 Daptomycin [Cubicin (Restricted To Id) -] 500 mg IVPB Q48H vial 11/25/19 Insulin (Levemir) [Levemir Vial] 15 units SQ BID@0700,2200 units 11/25/19 Insulin Sliding Scale [Novolog Vial Sliding Scale -] 1 vial SQ ACHS units 11/25 Memantine HCl [Namenda -] 5 mg PO BID tab 11/25/19 Tamsulosin HCl [Flomax -] 0.4 mg PO DAILY@0830 cap.er.24h 11/25/19
--- NOTE | 2019-11-26 15:12 | PN ---
Progress Note (short form) - Note Progress Note: will switch to vancomycin- will need 31 more days of antiibotics for total 42 ( now day #11)- for MRSA bacteremia- first dose now unfortunately given changing renal function (improving) will not be able to calculate a daily dose for patient- his renal function and vancomycin level will need to be followed daily at the [facility] until his renal function stabilizes and a daily vancomycin dose can be calculated - willl d/w SECRETARIAL STENOGRAPHER THERE AT [facility] to see if this is feasible at the [facility] Problem List - Problems (1) VIJAY (acute kidney injury) Code(s): N17.9 - ACUTE KIDNEY FAILURE, UNSPECIFIED (2) Gram-positive bacteremia Code(s): R78.81 - BACTEREMIA (3) NSTEMI (non-ST elevated myocardial infarction) Code(s): I21.4 - NON-ST ELEVATION (NSTEMI) MYOCARDIAL INFARCTION (4) Pneumonia Code(s): J18.9 - PNEUMONIA, UNSPECIFIED ORGANISM (5) Sepsis Code(s): A41.9 - SEPSIS, UNSPECIFIED ORGANISM Qualifiers: Sepsis type: sepsis due to unspecified organism Sepsis acute organ dysfunction status: unspecified Qualified Code(s): A41.9 - Sepsis, unspecified organism (6) UTI (urinary tract infection) Code(s): N39.0 - URINARY TRACT INFECTION, SITE NOT SPECIFIED (7) Aortic stenosis Code(s): I35.0 - NONRHEUMATIC AORTIC (VALVE) STENOSIS (8) Dementia Code(s): F03.90 - UNSPECIFIED DEMENTIA WITHOUT BEHAVIORAL DISTURBANCE (9) HTN (hypertension) Code(s): I10 - ESSENTIAL (PRIMARY) HYPERTENSION
[2019-11-26] MEDS: ATORVASTATIN CA 10 MG TABLET (FP) PO SCH (22:31)
[2019-11-27] MEDS: INSULIN SLIDING SCALE (NOVOLOG) 1 VIAL SQ SCH ×4 (06:05→21:40)
[2019-11-27] MEDS: INSULIN (LEVEMIR) 100 UNITS/ML UNITS SQ SCH ×2 (06:05→21:39)
[2019-11-27 08:09] LABS: ALBUMIN 1.4 g/dl (3.4-5.0); BILIRUBIN,TOTAL 0.8 mg/dL (0.2-1); BLOOD UREA NITROGEN 41.4 mg/dL (7-18); CALCIUM 7.5 mg/dL (8.5-10.1); CREATININE 2.3 mg/dL (0.55-1.3); POTASSIUM 3.9 mmol/L (3.5-5.1); TOT PROT 6.2 g/dl (6.4-8.2)
[2019-11-27] MEDS: TAMSULOSIN HCL 0.4 MG CAP PO SCH (10:12)
[2019-11-27] MEDS: MEMANTINE HCL 5 MG TABLET (UD) PO SCH ×2 (10:12→21:40)
[2019-11-27] MEDS: VANCOMYCIN 1 GRAM (PRE-DOCKED) 1,000 MG/250 ML BAG IVPB SCH (10:12)
[2019-11-27] MEDS: BACITRACIN 15 GM TUBE TOPICAL OINTMENT TP SCH (10:12)
[2019-11-27] MEDS: ASPIRIN 81 MG CHEWABLE TABLETS PO SCH (10:12)
--- NOTE | 2019-11-27 11:03 | PN ---
Progress Note, Physician Chief Complaint: NSTEMI Sepsis History of Present Illness: Previous notes and events reviewed awake, confused NAD PICC line placed for salvage determiner ABT due to MRSA Bacteremia Vancomycin dose pending renal function no acute events reported during night - Current Medication List Current Medications: Active Medications Acetaminophen (Tylenol Suppository -) 650 mg NE Q6H PRN PRN Reason: FEVER Last Admin: 11/20/19 07:05 Dose: 650 mg Aspirin (Asa -) 81 mg PO DAILY [facility] Last Admin: 11/27/19 10:12 Dose: 81 mg Atorvastatin Calcium (Lipitor -) 10 mg PO HS [facility] Last Admin: 11/26/19 22:31 Dose: 10 mg Bacitracin (Bacitracin -) 1 applic TP DAILY [facility] Last Admin: 11/27/19 10:12 Dose: 1 applic Dextrose (D5w -) 1,000 mls @ 140 mls/hr IV ASDIR [facility] Last Admin: 11/26/19 13:28 Dose: 140 mls/hr Vancomycin HCl (Vancomycin (Pre-Docked)) 1,000 mg in 250 mls @ 166.667 mls/hr IVPB Q24H [facility]; Protocol Last Admin: 11/27/19 10:12 Dose: 166.667 mls/hr Insulin Aspart (Novolog Vial Sliding Scale -) 1 vial SQ ACHS [facility]; Protocol Last Admin: 11/27/19 06:05 Dose: Not Given Insulin Detemir (Levemir Vial) 15 units SQ BID@0700,2200 [facility] Last Admin: 11/27/19 06:05 Dose: Not Given Memantine (Namenda -) 5 mg PO BID [facility] Last Admin: 11/27/19 10:12 Dose: 5 mg Tamsulosin HCl (Flomax -) 0.4 mg PO DAILY@0830 [facility] Last Admin: 11/27/19 10:12 Dose: 0.4 mg - Objective Vital Signs: Vital Signs Temperature 98.0 F 11/27/19 09:08 Pulse Rate 76 11/27/19 09:08 Respiratory Rate 18 11/27/19 09:08 Blood Pressure 115/58 L 11/27/19 09:08 O2 Sat by Pulse Oximetry (%) 96 11/26/19 21:00 Constitutional: Yes: No Distress, Calm Eyes: Yes: Conjunctiva Clear HENT: Yes: Atraumatic Cardiovascular: Yes: Regular Rate and Rhythm Respiratory: Yes: Regular, Diminished Gastrointestinal: Yes: Normal Bowel Sounds, Soft Musculoskeletal: Yes: Muscle Weakness Extremities: Yes: WNL Edema: No Neurological: Yes: Alert, Confusion, Pre-Existing Deficit Psychiatric: Yes: Alert Labs: CBC, BMP 11/24/19 06:00 11/27/19 06:45 INR, PTT INR 1.31 (0.83-1.09) H 11/13/19 21:30 Microbiology 11/20/19 14:20 Blood - Peripheral Venous Blood Culture - Final NO GROWTH AFTER 5 DAYS INCUBATION 11/20/19 14:15 Blood - Peripheral Venous Blood Culture - Final NO GROWTH AFTER 5 DAYS INCUBATION 11/17/19 06:45 Blood - Peripheral Venous Blood Culture - Final NO GROWTH AFTER 5 DAYS INCUBATION 11/17/19 06:40 Blood - Peripheral Venous Blood Culture - Final NO GROWTH AFTER 5 DAYS INCUBATION 11/15/19 05:40 Blood - Peripheral Venous Blood Culture - Final S Aureus 11/15/19 05:45 Blood - Peripheral Venous Blood Culture - Final S Aureus 11/13/19 21:30 Blood - Peripheral Venous Blood Culture - Final Presumptive Mrsa (Pbp2a Pos) 11/14/19 00:45 Urine - Urine Clean Catch Urine Culture - Final S Aureus 11/13/19 21:30 Blood - Peripheral Venous Blood Culture - Final S Aureus 11/14/19 00:45 Urine For Antigen Detection Legionella Antigen - Final 11/14/19 00:45 Urine For Antigen Detection Streptococcus pneumoniae Antigen (M - Final Problem List - Problems (1) VIJAY (acute kidney injury) Assessment/Plan: -BUN/Cr 41.4/2.3 -monitor renal function daily -Renal on board Code(s): N17.9 - ACUTE KIDNEY FAILURE, UNSPECIFIED (2) NSTEMI (non-ST elevated myocardial infarction) Assessment/Plan: -Cardiology on board -Troponin 2.61~2.07~1.85 -Tele monitoring -EKG shows NSR with LBBB -Heparin drip discontinued -Atorvastatin -Aspirin -ECHO with EF 55-60% Code(s): I21.4 - NON-ST ELEVATION (NSTEMI) MYOCARDIAL INFARCTION (3) Sepsis Assessment/Plan: -ID on board -LA 4.0~2.8 -Leukocytosis -afebrile -CXR shows no acute pathology -Urine Legionella negative -BC positive MRSA -repeat BC neg -Ceftaroline, Daptomycin -tylenol for temp >100F -PICC line in place for detention ABT, will need antibiotic for total 42 days ( on day 12) Code(s): A41.9 - SEPSIS, UNSPECIFIED ORGANISM Qualifiers: Sepsis type: sepsis due to unspecified organism Sepsis acute organ dysfunction status: unspecified Qualified Code(s): A41.9 - Sepsis, unspecified organism (4) Dementia Assessment/Plan: -Neurology on board -Head CT scan shows moderate atrophy, no gross evidence of a focal intracranial lesion or hemorrhage -Namenda Code(s): F03.90 - UNSPECIFIED DEMENTIA WITHOUT BEHAVIORAL DISTURBANCE (5) HTN (hypertension) Assessment/Plan: -low Na diet Code(s): I10 - ESSENTIAL (PRIMARY) HYPERTENSION Assessment/Plan see problem list being discharged to SNF for detention ABT, will need 42 days of antibiotics
--- NOTE | 2019-11-27 12:26 | PN ---
Progress Note, Physician History of Present Illness: Pt seen and examined at bedside. He appears comfortable. - Current Medication List Current Medications: Active Medications Acetaminophen (Tylenol Suppository -) 650 mg [place] Q6H PRN PRN Reason: FEVER Last Admin: 11/20/19 07:05 Dose: 650 mg Aspirin (Asa -) 81 mg PO DAILY [facility] Last Admin: 11/27/19 10:12 Dose: 81 mg Atorvastatin Calcium (Lipitor -) 10 mg PO HS [facility] Last Admin: 11/26/19 22:31 Dose: 10 mg Bacitracin (Bacitracin -) 1 applic TP DAILY [facility] Last Admin: 11/27/19 10:12 Dose: 1 applic Dextrose (D5w -) 1,000 mls @ 140 mls/hr IV ASDIR [facility] Last Admin: 11/26/19 13:28 Dose: 140 mls/hr Vancomycin HCl (Vancomycin (Pre-Docked)) 1,000 mg in 250 mls @ 166.667 mls/hr IVPB Q24H [facility]; Protocol Last Admin: 11/27/19 10:12 Dose: 166.667 mls/hr Insulin Aspart (Novolog Vial Sliding Scale -) 1 vial SQ ACHS [facility]; Protocol Last Admin: 11/27/19 06:05 Dose: Not Given Insulin Detemir (Levemir Vial) 15 units SQ BID@0700,2200 [facility] Last Admin: 11/27/19 06:05 Dose: Not Given Memantine (Namenda -) 5 mg PO BID [facility] Last Admin: 11/27/19 10:12 Dose: 5 mg Tamsulosin HCl (Flomax -) 0.4 mg PO DAILY@0830 [facility] Last Admin: 11/27/19 10:12 Dose: 0.4 mg - Objective Vital Signs: Vital Signs Temperature 98.0 F 11/27/19 09:08 Pulse Rate 76 11/27/19 09:08 Respiratory Rate 18 11/27/19 09:08 Blood Pressure 115/58 L 11/27/19 09:08 O2 Sat by Pulse Oximetry (%) 96 11/26/19 21:00 Constitutional: Yes: Calm Eyes: Yes: Conjunctiva Clear HENT: Yes: Atraumatic Cardiovascular: Yes: S1, S2 Respiratory: Yes: CTA Bilaterally Gastrointestinal: Yes: Soft Genitourinary: Yes: Ford Present Musculoskeletal: Yes: Muscle Weakness Edema: No Neurological: Yes: Lethargy Labs: CBC, BMP 11/24/19 06:00 11/27/19 06:45 INR, PTT INR 1.31 (0.83-1.09) H 11/13/19 21:30 Problem List - Problems (1) VIJAY (acute kidney injury) Code(s): N17.9 - ACUTE KIDNEY FAILURE, UNSPECIFIED (2) Dementia Code(s): F03.90 - UNSPECIFIED DEMENTIA WITHOUT BEHAVIORAL DISTURBANCE Assessment/Plan Current Medications Generic Name Dose Route Start Last Admin Trade Name Freq PRN Reason Stop Dose Admin Acetaminophen 650 mg 11/15/19 06:23 11/20/19 07:05 Tylenol Suppository - NJ 650 mg Q6H PRN Administration FEVER Aspirin 81 mg 11/15/19 10:00 11/27/19 10:12 Asa - PO 81 mg DAILY [facility] Administration Atorvastatin Calcium 10 mg 11/14/19 22:00 11/26/19 22:31 Lipitor - PO 10 mg HS [facility] Administration Bacitracin 1 applic 11/24/19 10:00 11/27/19 10:12 Bacitracin - TP 1 applic DAILY [facility] Administration Dextrose 1,000 mls @ 140 mls/hr 11/24/19 12:22 11/26/19 13:28 D5w - IV 140 mls/hr ASDIR [facility] Administration Vancomycin HCl 1,000 mg in 250 mls @ 166.667 mls/hr 11/27/19 10:00 11/27/19 10:12 Vancomycin (Pre-Docked) IVPB 166.667 mls/hr Q24H [facility] Administration Protocol Insulin Aspart 1 vial 11/25/19 07:00 11/27/19 12:24 Novolog Vial Sliding Scale - SQ Not Given ACHS [facility] Protocol Insulin Detemir 15 units 11/25/19 07:00 11/27/19 06:05 Levemir Vial SQ Not Given BID@0700,2200 [facility] Memantine 5 mg 11/14/19 10:00 11/27/19 10:12 Namenda - PO 5 mg BID [facility] Administration Tamsulosin HCl 0.4 mg 11/19/19 08:30 11/27/19 10:12 Flomax - PO 0.4 mg DAILY@0830 [facility] Administration Impression 1. VIJAY 2. lactic acidosis 3. bacteremia 4. sepsis 5. dementia 6. hx htn 7. hypernatremia Plan - renal function improving - sodium improved - change fluids from d5 to 1/2 ns and monitor lytes - renal dose meds, renal function is improving daily, will need to monitor in rehab - avoid nsaids
[2019-11-27] MEDS ORDERED: POTASSIUM CHLORIDE 10 MEQ in SODIUM CHLORIDE 0.45% 1,000 ML IVPB SCH (12:30)
--- NOTE | 2019-11-27 12:36 | PN ---
Progress Note (short form) - Note Progress Note: remains confused but more responsive Vital Signs Period Temp Pulse Resp BP Sys/[place] Pulse Ox Last 24 Hr 97.0 F-98.1 F 68-76 18-18 99-126/57-69 96 cor-rrr lungs clear abd soft,nt ext no edema +telles CBC, BMP 11/24/19 06:00 11/27/19 06:45 Laboratory Tests 11/27/19 06:45 Random Vancomycin 10.9 L Microbiology 11/20/19 14:20 Blood - Peripheral Venous Blood Culture - Final NO GROWTH AFTER 5 DAYS INCUBATION 11/20/19 14:15 Blood - Peripheral Venous Blood Culture - Final NO GROWTH AFTER 5 DAYS INCUBATION 11/17/19 06:45 Blood - Peripheral Venous Blood Culture - Final NO GROWTH AFTER 5 DAYS INCUBATION 11/17/19 06:40 Blood - Peripheral Venous Blood Culture - Final NO GROWTH AFTER 5 DAYS INCUBATION 11/15/19 05:40 Blood - Peripheral Venous Blood Culture - Final S Aureus 11/15/19 05:45 Blood - Peripheral Venous Blood Culture - Final S Aureus 11/13/19 21:30 Blood - Peripheral Venous Blood Culture - Final Presumptive Mrsa (Pbp2a Pos) 11/14/19 00:45 Urine - Urine Clean Catch Urine Culture - Final S Aureus 11/13/19 21:30 Blood - Peripheral Venous Blood Culture - Final S Aureus 11/14/19 00:45 Urine For Antigen Detection Legionella Antigen - Final 11/14/19 00:45 Urine For Antigen Detection Streptococcus pneumoniae Antigen (M - Final a/p MRSA Bacteremia- renal function improving start vancomycin 1 gram daily and adjust dose per level and renal function plan for vancomycin for 30 more days-total 42 days will need wbc count monitored as well as esr and crp has been afebrile with improving mental status/renal status since admission Problem List - Problems (1) Sepsis Code(s): A41.9 - SEPSIS, UNSPECIFIED ORGANISM Qualifiers: Sepsis type: sepsis due to unspecified organism Sepsis acute organ dysfunction status: unspecified Qualified Code(s): A41.9 - Sepsis, unspecified organism (2) Gram-positive bacteremia Code(s): R78.81 - BACTEREMIA (3) NSTEMI (non-ST elevated myocardial infarction) Code(s): I21.4 - NON-ST ELEVATION (NSTEMI) MYOCARDIAL INFARCTION (4) VIJAY (acute kidney injury) Code(s): N17.9 - ACUTE KIDNEY FAILURE, UNSPECIFIED
[2019-11-27] MEDS: POTASSIUM CHLORIDE 10 MEQ in SODIUM CHLORIDE 0.45% 1,000 ML IVPB SCH ×2 (14:29→22:35)
[2019-11-27] MEDS: ATORVASTATIN CA 10 MG TABLET (FP) PO SCH (21:39)
[2019-11-28] MEDS ORDERED: PT OWN MED DRAWER 7, Y5N ONE ×4 (01:18→21:28)
[2019-11-28] MEDS: POTASSIUM CHLORIDE 10 MEQ in SODIUM CHLORIDE 0.45% 1,000 ML IVPB SCH ×3 (01:21→17:44)
[2019-11-28] MEDS: INSULIN (LEVEMIR) 100 UNITS/ML UNITS SQ SCH ×2 (06:55→21:38)
[2019-11-28] MEDS: INSULIN SLIDING SCALE (NOVOLOG) 1 VIAL SQ SCH ×4 (06:56→21:39)
[2019-11-28] MEDS: TAMSULOSIN HCL 0.4 MG CAP PO SCH (08:44)
[2019-11-28 09:04] LABS: HEMATOCRIT 23.9 % (35.4-49); HEMOGLOBIN 7.8 GM/dL (11.7-16.9); MCHC 32.5 g/dl (32.0-35.9); MEAN PLT VOLUME 10.8 fl (7.5-11.1); PLATELET COUNT 131 K/MM3 (134-434); RBC 2.68 M/mm3 (4.00-5.60); RDW 13.5 % (11.9-15.9); WHITE BLOOD COUNT 13.4 K/mm3 (4.0-10.0)
--- NOTE | 2019-11-28 09:28 | PN ---
Progress Note, Physician Chief Complaint: AWAKE CONFUSED WHICH IS BASELINE PATIENT BEING CLEANED AND I EXAMINED DURING THAT TIE HE WAS SCREAMING HOWEVER NOT SURE WHY.. - Current Medication List Current Medications: Active Medications Acetaminophen (Tylenol Suppository -) 650 mg [place] Q6H PRN PRN Reason: FEVER Last Admin: 11/20/19 07:05 Dose: 650 mg Aspirin (Asa -) 81 mg PO DAILY [facility] Last Admin: 11/27/19 10:12 Dose: 81 mg Atorvastatin Calcium (Lipitor -) 10 mg PO HS [facility] Last Admin: 11/27/19 21:39 Dose: 10 mg Bacitracin (Bacitracin -) 1 applic TP DAILY [facility] Last Admin: 11/27/19 10:12 Dose: 1 applic Vancomycin HCl (Vancomycin (Pre-Docked)) 1,000 mg in 250 mls @ 166.667 mls/hr IVPB Q24H [facility]; Protocol Last Admin: 11/27/19 10:12 Dose: 166.667 mls/hr Potassium Chloride 10 meq/ (Sodium Chloride) 1,005 mls @ 100 mls/hr IVPB Q10H [facility] Last Admin: 11/28/19 01:21 Dose: 100 mls/hr Insulin Aspart (Novolog Vial Sliding Scale -) 1 vial SQ ACHS [facility]; Protocol Last Admin: 11/28/19 06:56 Dose: Not Given Insulin Detemir (Levemir Vial) 15 units SQ BID@0700,2200 [facility] Last Admin: 11/28/19 06:55 Dose: Not Given Memantine (Namenda -) 5 mg PO BID [facility] Last Admin: 11/27/19 21:40 Dose: 5 mg Tamsulosin HCl (Flomax -) 0.4 mg PO DAILY@0830 [facility] Last Admin: 11/27/19 10:12 Dose: 0.4 mg - Objective Vital Signs: Vital Signs Temperature 99.0 F 11/28/19 06:00 Pulse Rate 76 11/28/19 06:00 Respiratory Rate 18 11/28/19 06:00 Blood Pressure 129/72 11/28/19 06:00 O2 Sat by Pulse Oximetry (%) 94 L 11/27/19 21:00 Constitutional: Yes: Mild Distress Cardiovascular: Yes: Regular Rate and Rhythm, Murmur Respiratory: Yes: Diminished, On Nasal O2 Gastrointestinal: Yes: Soft Genitourinary: Yes: Ford Present Musculoskeletal: Yes: Muscle Weakness Edema: No Integumentary: Yes: Pressure Ulcer (ON RIGHT PLANTAR CLEAN NO DISCHARGE ABOUT 2CMRED) Wound/Incision: Yes: Dressing Removed Neurological: Yes: Confusion, Pre-Existing Deficit ...Motor Strength: LLE, RLE Labs: CBC, BMP 11/28/19 08:35 INR, PTT INR 1.31 (0.83-1.09) H 11/13/19 21:30 Problem List - Problems (1) VIJAY (acute kidney injury) Code(s): N17.9 - ACUTE KIDNEY FAILURE, UNSPECIFIED (2) Gram-positive bacteremia Code(s): R78.81 - BACTEREMIA (3) NSTEMI (non-ST elevated myocardial infarction) Code(s): I21.4 - NON-ST ELEVATION (NSTEMI) MYOCARDIAL INFARCTION (4) Pneumonia Code(s): J18.9 - PNEUMONIA, UNSPECIFIED ORGANISM (5) Sepsis Code(s): A41.9 - SEPSIS, UNSPECIFIED ORGANISM Qualifiers: Sepsis type: sepsis due to unspecified organism Sepsis acute organ dysfunction status: unspecified Qualified Code(s): A41.9 - Sepsis, unspecified organism (6) UTI (urinary tract infection) Code(s): N39.0 - URINARY TRACT INFECTION, SITE NOT SPECIFIED (7) Aortic stenosis Code(s): I35.0 - NONRHEUMATIC AORTIC (VALVE) STENOSIS (8) Dementia Code(s): F03.90 - UNSPECIFIED DEMENTIA WITHOUT BEHAVIORAL DISTURBANCE (9) HTN (hypertension) Code(s): I10 - ESSENTIAL (PRIMARY) HYPERTENSION Assessment/Plan IV ABX PER [facility] [place] [facility] WAITING ON LABS TODAY PICC LINE IN PLACE RENAL F/U, CHECK H/H MAY NEED TRANSFUSION OVERALL PROGNOSIS IS POOR NEED ADVANCED DIRECTIVES FROM FAMILY
[2019-11-28 09:32] LABS: ALBUMIN 1.5 g/dl (3.4-5.0); CALCIUM 7.6 mg/dL (8.5-10.1); CREATININE 2.2 mg/dL (0.55-1.3); POTASSIUM 4.6 mmol/L (3.5-5.1); TOT PROT 6.4 g/dl (6.4-8.2)
[2019-11-28] MEDS: ASPIRIN 81 MG CHEWABLE TABLETS PO SCH (09:43)
[2019-11-28] MEDS: MEMANTINE HCL 5 MG TABLET (UD) PO SCH ×2 (09:43→22:00)
[2019-11-28] MEDS: BACITRACIN 15 GM TUBE TOPICAL OINTMENT TP SCH (09:44)
--- NOTE | 2019-11-28 11:38 | PN ---
Progress Note (short form) - Note Progress Note: WILL HOLD TRANSFER TIL TOMORROW TRANSFUSE 1 UNIT PRBC CHECK CBC IN MORNING Problem List - Problems (1) VIJAY (acute kidney injury) Code(s): N17.9 - ACUTE KIDNEY FAILURE, UNSPECIFIED (2) Gram-positive bacteremia Code(s): R78.81 - BACTEREMIA (3) NSTEMI (non-ST elevated myocardial infarction) Code(s): I21.4 - NON-ST ELEVATION (NSTEMI) MYOCARDIAL INFARCTION (4) Pneumonia Code(s): J18.9 - PNEUMONIA, UNSPECIFIED ORGANISM (5) Sepsis Code(s): A41.9 - SEPSIS, UNSPECIFIED ORGANISM Qualifiers: Sepsis type: sepsis due to unspecified organism Sepsis acute organ dysfunction status: unspecified Qualified Code(s): A41.9 - Sepsis, unspecified organism (6) UTI (urinary tract infection) Code(s): N39.0 - URINARY TRACT INFECTION, SITE NOT SPECIFIED (7) Aortic stenosis Code(s): I35.0 - NONRHEUMATIC AORTIC (VALVE) STENOSIS (8) Dementia Code(s): F03.90 - UNSPECIFIED DEMENTIA WITHOUT BEHAVIORAL DISTURBANCE (9) HTN (hypertension) Code(s): I10 - ESSENTIAL (PRIMARY) HYPERTENSION
[2019-11-28] MEDS: VANCOMYCIN 1 GRAM (PRE-DOCKED) 1,000 MG/250 ML BAG IVPB SCH (11:41)
--- NOTE | 2019-11-28 14:54 | PN ---
Progress Note, Physician History of Present Illness: Pt seen and examined at bedside. He is more awake and interactive today. - Current Medication List Current Medications: Active Medications Acetaminophen (Tylenol Suppository -) 650 mg [place] Q6H PRN PRN Reason: FEVER Last Admin: 11/20/19 07:05 Dose: 650 mg Aspirin (Asa -) 81 mg PO DAILY [facility] Last Admin: 11/28/19 09:43 Dose: 81 mg Atorvastatin Calcium (Lipitor -) 10 mg PO HS [facility] Last Admin: 11/27/19 21:39 Dose: 10 mg Bacitracin (Bacitracin -) 1 applic TP DAILY [facility] Last Admin: 11/28/19 09:44 Dose: 1 applic Vancomycin HCl (Vancomycin (Pre-Docked)) 1,000 mg in 250 mls @ 166.667 mls/hr IVPB Q24H [facility]; Protocol Last Admin: 11/28/19 11:41 Dose: 166.667 mls/hr Potassium Chloride 10 meq/ (Sodium Chloride) 1,005 mls @ 100 mls/hr IVPB Q10H [facility] Last Admin: 11/28/19 09:43 Dose: 100 mls/hr Insulin Aspart (Novolog Vial Sliding Scale -) 1 vial SQ ACHS [facility]; Protocol Last Admin: 11/28/19 11:43 Dose: Not Given Insulin Detemir (Levemir Vial) 15 units SQ BID@0700,2200 [facility] Last Admin: 11/28/19 06:55 Dose: Not Given Memantine (Namenda -) 5 mg PO BID [facility] Last Admin: 11/28/19 09:43 Dose: 5 mg Tamsulosin HCl (Flomax -) 0.4 mg PO DAILY@0830 [facility] Last Admin: 11/28/19 08:44 Dose: 0.4 mg - Objective Vital Signs: Vital Signs Temperature 98.4 F 11/28/19 10:04 Pulse Rate 76 11/28/19 10:04 Respiratory Rate 18 11/28/19 10:04 Blood Pressure 129/62 11/28/19 10:04 O2 Sat by Pulse Oximetry (%) 95 11/28/19 10:00 Constitutional: Yes: Calm Eyes: Yes: Conjunctiva Clear HENT: Yes: Atraumatic Neck: Yes: Supple Cardiovascular: Yes: S1, S2 Respiratory: Yes: CTA Bilaterally Gastrointestinal: Yes: Soft Genitourinary: Yes: Ford Present Musculoskeletal: Yes: Muscle Weakness Edema: No Integumentary: Yes: WNL Neurological: Yes: Other (awake) Labs: CBC, BMP 11/28/19 08:35 11/28/19 08:35 INR, PTT INR 1.31 (0.83-1.09) H 11/13/19 21:30 Problem List - Problems (1) VIJAY (acute kidney injury) Code(s): N17.9 - ACUTE KIDNEY FAILURE, UNSPECIFIED (2) Dementia Code(s): F03.90 - UNSPECIFIED DEMENTIA WITHOUT BEHAVIORAL DISTURBANCE Assessment/Plan Current Medications Generic Name Dose Route Start Last Admin Trade Name Freq PRN Reason Stop Dose Admin Acetaminophen 650 mg 11/15/19 06:23 11/20/19 07:05 Tylenol Suppository - TN 650 mg Q6H PRN Administration FEVER Aspirin 81 mg 11/15/19 10:00 11/28/19 09:43 Asa - PO 81 mg DAILY [facility] Administration Atorvastatin Calcium 10 mg 11/14/19 22:00 11/27/19 21:39 Lipitor - PO 10 mg HS [facility] Administration Bacitracin 1 applic 11/24/19 10:00 11/28/19 09:44 Bacitracin - TP 1 applic DAILY [facility] Administration Vancomycin HCl 1,000 mg in 250 mls @ 166.667 mls/hr 11/27/19 10:00 11/28/19 11:41 Vancomycin (Pre-Docked) IVPB 166.667 mls/hr Q24H [facility] Administration Protocol Potassium Chloride 10 meq/ 1,005 mls @ 100 mls/hr 11/27/19 12:30 11/28/19 09: 43 Sodium Chloride IVPB 100 mls/hr Q10H [facility] Administration Insulin Aspart 1 vial 11/25/19 07:00 11/28/19 11:43 Novolog Vial Sliding Scale - SQ Not Given ACHS [facility] Protocol Insulin Detemir 15 units 11/25/19 07:00 11/28/19 06:55 Levemir Vial SQ Not Given BID@0700,2200 [facility] Memantine 5 mg 11/14/19 10:00 11/28/19 09:43 Namenda - PO 5 mg BID [facility] Administration Tamsulosin HCl 0.4 mg 11/19/19 08:30 11/28/19 08:44 Flomax - PO 0.4 mg DAILY@0830 [facility] Administration Impression 1. VIJAY 2. lactic acidosis 3. bacteremia 4. sepsis 5. dementia 6. hx htn 7. hypernatremia Plan - renal function continues to stabilize - tranfuse unit of prbc - repeat labs in am - cont abx - discussed with medical team - avoid nsaids
[2019-11-28] MEDS: ATORVASTATIN CA 10 MG TABLET (FP) PO SCH (21:32)
[2019-11-29] MEDS: POTASSIUM CHLORIDE 10 MEQ in SODIUM CHLORIDE 0.45% 1,000 ML IVPB SCH ×2 (00:56→05:43)
[2019-11-29] MEDS ORDERED: PT OWN MED DRAWER 7, Y5N ONE (00:56)
[2019-11-29] MEDS: INSULIN SLIDING SCALE (NOVOLOG) 1 VIAL SQ SCH ×2 (06:29→12:38)
[2019-11-29] MEDS: INSULIN (LEVEMIR) 100 UNITS/ML UNITS SQ SCH (06:29)
--- NOTE | 2019-11-29 07:11 | PN ---
Progress Note (short form) - Note Progress Note: AWAITING CBC, ONCE H/H SHOWS IMPROVEMENT CAN CONTINUE WITH DISCHARGE BACK TO SNF BACITRACIN LEFT FOREARM FOR OPEN STAGE 1-2 [facility]LC[facility] Problem List - Problems (1) VIJAY (acute kidney injury) Code(s): N17.9 - ACUTE KIDNEY FAILURE, UNSPECIFIED (2) Gram-positive bacteremia Code(s): R78.81 - BACTEREMIA (3) NSTEMI (non-ST elevated myocardial infarction) Code(s): I21.4 - NON-ST ELEVATION (NSTEMI) MYOCARDIAL INFARCTION (4) Pneumonia Code(s): J18.9 - PNEUMONIA, UNSPECIFIED ORGANISM (5) Sepsis Code(s): A41.9 - SEPSIS, UNSPECIFIED ORGANISM Qualifiers: Sepsis type: sepsis due to unspecified organism Sepsis acute organ dysfunction status: unspecified Qualified Code(s): A41.9 - Sepsis, unspecified organism (6) UTI (urinary tract infection) Code(s): N39.0 - URINARY TRACT INFECTION, SITE NOT SPECIFIED (7) Aortic stenosis Code(s): I35.0 - NONRHEUMATIC AORTIC (VALVE) STENOSIS (8) Dementia Code(s): F03.90 - UNSPECIFIED DEMENTIA WITHOUT BEHAVIORAL DISTURBANCE (9) HTN (hypertension) Code(s): I10 - ESSENTIAL (PRIMARY) HYPERTENSION
[2019-11-29 07:26] LABS: BASO % 0.7 % (0-2.0); EOS % 1.4 % (0-4.5); HEMATOCRIT 27.5 % (35.4-49); HEMOGLOBIN 9.2 GM/dL (11.7-16.9); LYMPH % 8.6 % (8-40); MCH 29.7 pg (25.7-33.7); MCHC 33.3 g/dl (32.0-35.9); MEAN CELL VOLUME 89.2 fl (80-96); MEAN PLT VOLUME 10.8 fl (7.5-11.1); MONO % 6.7 % (3.8-10.2); NEUT % 82.6 % (42.8-82.8); PLATELET COUNT 163 K/MM3 (134-434); RBC 3.08 M/mm3 (4.00-5.60); RDW 13.8 % (11.9-15.9); WHITE BLOOD COUNT 12.1 K/mm3 (4.0-10.0)
[2019-11-29 07:53] LABS: BLOOD UREA NITROGEN 41.5 mg/dL (7-18); CALCIUM 7.8 mg/dL (8.5-10.1); CREATININE 2.2 mg/dL (0.55-1.3); POTASSIUM 5.2 mmol/L (3.5-5.1)
[2019-11-29] MEDS: TAMSULOSIN HCL 0.4 MG CAP PO SCH (09:17)
[2019-11-29] MEDS ORDERED: BACITRACIN 15 GM TUBE TOPICAL OINTMENT TP SCH (10:00)
[2019-11-29] MEDS: VANCOMYCIN 1 GRAM (PRE-DOCKED) 1,000 MG/250 ML BAG IVPB SCH (10:17)
[2019-11-29] MEDS: MEMANTINE HCL 5 MG TABLET (UD) PO SCH (10:17)
[2019-11-29] MEDS: ASPIRIN 81 MG CHEWABLE TABLETS PO SCH (10:17)
[2019-11-29 10:27] VITALS: BP 138/75; PULSE 76; TEMP 98.3
--- NOTE | 2019-11-29 11:18 | PN ---
Progress Note (short form) - Note Progress Note: much more alert talking today! Vital Signs Period Temp Pulse Resp BP Sys/[place] Pulse Ox Last 24 Hr 98.0 F-98.9 F 72-85 16-18 120-149/65-91 96 cor-rrr lungs clear abd soft,nt ext no edema +telles CBC, BMP 11/29/19 06:35 11/29/19 06:35 Microbiology 11/20/19 14:20 Blood - Peripheral Venous Blood Culture - Final NO GROWTH AFTER 5 DAYS INCUBATION 11/20/19 14:15 Blood - Peripheral Venous Blood Culture - Final NO GROWTH AFTER 5 DAYS INCUBATION 11/17/19 06:45 Blood - Peripheral Venous Blood Culture - Final NO GROWTH AFTER 5 DAYS INCUBATION 11/17/19 06:40 Blood - Peripheral Venous Blood Culture - Final NO GROWTH AFTER 5 DAYS INCUBATION 11/15/19 05:40 Blood - Peripheral Venous Blood Culture - Final S Aureus 11/15/19 05:45 Blood - Peripheral Venous Blood Culture - Final Mr S Aureus 11/13/19 21:30 Blood - Peripheral Venous Blood Culture - Final Presumptive Mrsa (Pbp2a Pos) 11/14/19 00:45 Urine - Urine Clean Catch Urine Culture - Final Mr S Aureus 11/13/19 21:30 Blood - Peripheral Venous Blood Culture - Final Mr S Aureus 11/14/19 00:45 Urine For Antigen Detection Legionella Antigen - Final 11/14/19 00:45 Urine For Antigen Detection Streptococcus pneumoniae Antigen (M - Final a/p MRSA Bacteremia- renal function improving day #14 antibiotic treatment to continue vancomyciin to complete 42 days - another 28 more days will need renal function and vancomycin level monitored at the AL should have blood cultures repeated 72 hours after vancomycin treatment in complete Problem List - Problems (1) Sepsis Code(s): A41.9 - SEPSIS, UNSPECIFIED ORGANISM Qualifiers: Sepsis type: sepsis due to unspecified organism Sepsis acute organ dysfunction status: unspecified Qualified Code(s): A41.9 - Sepsis, unspecified organism (2) Gram-positive bacteremia Code(s): R78.81 - BACTEREMIA (3) NSTEMI (non-ST elevated myocardial infarction) Code(s): I21.4 - NON-ST ELEVATION (NSTEMI) MYOCARDIAL INFARCTION (4) VIJAY (acute kidney injury) Code(s): N17.9 - ACUTE KIDNEY FAILURE, UNSPECIFIED
== END 2019-11-29 11:55 | DRG 871 ==
LOC: JER 20:46 → JERBED 22:47 → J4S 11-14 16:47
PROVIDERS: ADMIT Internal Medicine; ATTEND Family Medicine
PROC: 02HV33Z Insertion of Infusion Device into Superior Vena Cava, Percutaneous Approach (ICD-10-PCS; principal; 2019-11-25)
DX: A41.02 Sepsis due to Methicillin resistant Staphylococcus aureus (principal); G93.41 Metabolic encephalopathy; N39.0 Urinary tract infection, site not specified; N17.9 Acute kidney failure, unspecified; I24.8 Other forms of acute ischemic heart disease; E87.2 Acidosis; E87.0 Hyperosmolality and hypernatremia; E78.5 Hyperlipidemia, unspecified; G30.9 Alzheimer's disease, unspecified; F02.80 Dementia in other diseases classified elsewhere, unspecified severity, without behavioral disturbance, psychotic disturbance, mood disturbance, and anxiety; I35.0 Nonrheumatic aortic (valve) stenosis; E11.65 Type 2 diabetes mellitus with hyperglycemia; I12.9 Hypertensive chronic kidney disease with stage 1 through stage 4 chronic kidney disease, or unspecified chronic kidney disease; N18.9 Chronic kidney disease, unspecified; R33.9 Retention of urine, unspecified; D72.829 Elevated white blood cell count, unspecified
CPT/HCPCS: 36415; 36430; 36511; 36569; 70450-TC; 71045-TC-FY; 71250-TC; 74176-TC; 76700-TC; 76775-TC; 76856-TC; 77001-TC-FY; 80048; 80053; 80061; 81003; 82272; 82550; 82553; 82565; 82570; 82803; 82962; 83036; 83516; 83520; 83605; 83721; 83735; 84100; 84155; 84156; 84165; 84300; 84443; 84484; 85025; 85027; 85610; 85651; 85730; 86038; 86140; 86225; 86256; 86704; 86706; 86707; 86708; 86709; 86850; 86900; 86901; 86922; 87040; 87086; 87186; 87340; 87522; 87899; 93005; 93010; 93306-TC; 93971; 99285-25; C1751; G0480; J0878; J1644; J7030; P9038; P9058